=== PATIENT | female | born 1955 | race Caucasian/White ===

== ENCOUNTER → 2017-06-13 10:52 | Outpatient (REF) | payer BC, SELFPAY ==
[2017-06-13 14:20] LABS: Basophils # 0.1 K/mm3 (0-0.2); Basophils % 0.9 % (0.1-2.0); Eosinophils # 0.1 K/mm3 (0.0-0.4); Eosinophils % 1.3 % (0.1-12.0); Hematocrit 47.7 % (37.0-47.0); Hemoglobin 15.4 g/dL (12.2-16.2); Lymphocytes # 2.6 K/mm3 (0.7-4.5); Lymphocytes % 24.4 K/mm3 (10-50); Mean Corpuscular HGB Conc 32.3 g/dL (31.8-35.4); Mean Corpuscular Volume 92.9 fl (81-99); Mean Platelet Volume 9.7 fl (7.4-10.4); Monocytes # 0.6 K/mm3 (0.1-1.0); Monocytes % 5.8 % (1.7-9.3); Neutrophils # 7.1 K/mm3 (1.8-7.8); Neutrophils % 67.5 % (37.0-80.0); Platelet Count 476 K/mm3 (142-424); Red Blood Count 5.14 M/mm3 (4.20-5.40); Red Cell Distribution Width 12.4 % (11.5-17.5); White Blood Count 10.5 K/mm3 (4.8-10.8)
[2017-06-13 14:33] LABS: Alanine Aminotransferase 20 U/L (12-78); Albumin/Globulin Ratio 1.3 (1.1-1.8); Alkaline Phosphatase 110 U/L (46-116); Anion Gap 12.8 mEq/L (5-15); Aspartate Amino Transferase 12 U/L (15-37); Bilirubin,Total 0.2 mg/dL (0.2-1.0); Blood Urea Nitrogen 12 mg/dL (7-18); Calcium 9.4 mg/dL (8.5-10.1); Carbon Dioxide 30 mmol/L (21.0-32.0); Chloride 103 mmol/L (98-107); Chol/HDL Ratio 2.6 (1-3.5); Cholesterol 211 mg/dL (140-200); Creatinine,Serum 0.69 mg/dL (0.55-1.02); Estimated Glomerular Filt Rate 86 ml/min (>60); Free T4 (Free Thyroxine) 1.12 ng/dl (0.76-1.46); GFR (African American) 104 ML/MIN (>60); Globulin 3.2 gm/dl (1.3-3.2); Glucose 98 mg/dL (74-106); HDL Cholesterol 81 mg/dL (29-89); LDL Cholesterol 117 mg/dL (0-130); Potassium 4.8 mmoL/L (3.5-5.1); Sodium 141 mmol/L (136-145); Thyroid Stimulating Hormone 1.26 uIU/ml (0.358-3.740); Total Protein,Serum 7.2 gm/dL (6.4-8.2); Triglycerides 67 mg/dL (30-200); VLDL Cholesterol 13 mg/dL (0-40)
[2017-06-13 16:18] LABS: Hemoglobin A1C 5.4 % (0.0-7.0)
[2017-06-14 13:21] LABS: Vitamin D 25 Hydroxy 28.4 ng/mL (30.0-100.0)
== END ==
LOC: LAB 10:52
PROVIDERS: Visit Provider Nurse Practitioner Family
DX: R53.83 Other fatigue (principal); K57.92 Diverticulitis of intestine, part unspecified, without perforation or abscess without bleeding; M54.5 Low back pain; F41.9 Anxiety disorder, unspecified; Z79.899 Other long term (current) drug therapy
CPT/HCPCS: 80053; 80061; 82652; 83036; 84439; 84443; 85025

== ENCOUNTER → 2018-12-06 09:46 | Outpatient (CLI) | payer MEDICARE, SELFPAY ==
--- NOTE | 2018-12-06 10:59 | XR_ITS ---
PROCEDURE: XR CHEST 2V CLINICAL HISTORY: smoker Back pain, current smoker COMPARISON: CXR CHEST(2 VIEWS-NOT PORTABLE) from 07/09/2015 FINDINGS: Normal heart size. The aortic knob is slightly prominent. The lungs are clear without infiltrates, suspicious nodules, or pleural effusions. Mild hyperinflation. There is some scarring in the right lung apex. No acute bony findings. IMPRESSION: Minimal prominence of the aortic knob with COPD, no acute finding Dictated by: Sampson Larios MD 12/06/2018 12:59 Signed by: <Electronically signed by Sampson Larios MD in [place]> 12/06/2018 12:59
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
[2018-12-06 11:14] LABS: Basophils # 0.1 K/mm3 (0-0.2); Basophils % 0.9 % (0.1-2.0); Eosinophils # 0.1 K/mm3 (0.0-0.4); Eosinophils % 1.5 % (0.1-12.0); Hematocrit 46.5 % (37.0-47.0); Hemoglobin 14.9 g/dL (12.2-16.2); Lymphocytes # 3.2 K/mm3 (0.7-4.5); Lymphocytes % 32.5 % (10-50); Mean Corpuscular HGB Conc 32.1 g/dL (31.8-35.4); Mean Corpuscular Hemoglobin 30.4 pg (27.0-31.2); Mean Corpuscular Volume 94.6 fl (81-99); Mean Platelet Volume 7.7 fl (7.4-10.4); Monocytes # 0.7 K/mm3 (0.1-1.0); Monocytes % 6.7 % (1.7-9.3); Neutrophils # 5.7 K/mm3 (1.8-7.8); Neutrophils % 58.5 % (37.0-80.0); Platelet Count 516 K/mm3 (142-424); Red Blood Count 4.91 M/mm3 (4.20-5.40); Red Cell Distribution Width 12.9 % (11.5-17.5); White Blood Count 9.7 K/mm3 (4.8-10.8)
[2018-12-06 12:40] LABS: Alanine Aminotransferase 19 U/L (12-78); Albumin Level 4.1 gm/dL (3.4-5.0); Albumin/Globulin Ratio 1.4 (1.1-1.8); Alkaline Phosphatase 86 U/L (46-116); Anion Gap 9.4 mEq/L (5-15); Aspartate Amino Transferase 21 U/L (15-37); Bilirubin,Total 0.4 mg/dL (0.2-1.0); Blood Urea Nitrogen 11 mg/dL (7-18); Calcium 9.4 mg/dL (8.5-10.1); Carbon Dioxide 30 mmol/L (21.0-32.0); Chloride 103 mmol/L (98-107); Creatinine,Serum 0.69 mg/dL (0.55-1.02); Estimated Glomerular Filt Rate 85 ml/min (>60); Free T4 (Free Thyroxine) 1.04 ng/dl (0.76-1.46); GFR (African American) 103 ML/MIN (>60); Globulin 2.9 gm/dl (1.3-3.2); Glucose 97 mg/dL (74-106); Potassium 4.4 mmoL/L (3.5-5.1); Sodium 138 mmol/L (136-145); Thyroid Stimulating Hormone 1.01 uIU/ml (0.358-3.740)
[2018-12-06 13:00] LABS: C-Reactive Protein < 0.2 mg/dL (0.0-0.9)
[2018-12-06 15:14] LABS: Erythrocyte Sedimentation Rate 4 mm/hr (0-30)
[2018-12-07 09:51] LABS: Vitamin D 25 Hydroxy 32.8 ng/mL (30.0-100.0)
[2018-12-07 12:08] LABS: RA Latex Turbid. <10.0 IU/mL (0.0-13.9)
[2018-12-07 15:18] LABS: Anti-Centromere B Antibodies <0.2 AI (0.0-0.9); Anti-Jo-1 <0.2 AI (0.0-0.9); Anti-Smith Antibody <0.2 AI (0.0-0.9); Antichromatin Antibodies <0.2 AI (0.0-0.9); Antiscleroderma-70 Antibodies <0.2 AI (0.0-0.9); RNP Antibodies <0.2 AI (0.0-0.9); Sjogren's Anti-SS-A <0.2 AI (0.0-0.9); Sjogren's Anti-SS-B <0.2 AI (0.0-0.9)
[2018-12-08 00:09] LABS: PTT-LA 37.6 sec (0.0-51.9); dRVVT 36.3 sec (0.0-47.0)
[2018-12-08 12:49] LABS: Anti-DNA (DS) Ab Qn 1 IU/mL (0-9)
[2018-12-08 12:52] LABS: Lupus Reflex Interpretation Comment: (.)
[2018-12-10 15:15] LABS: Anti-Cyclic Citrullinated Pept 5 units (0-19)
== END ==
PROVIDERS: PCP Nurse Practitioner Family; Visit Provider Nurse Practitioner Family
DX: R53.83 Other fatigue (principal); M25.50 Pain in unspecified joint; F17.200 Nicotine dependence, unspecified, uncomplicated; Z00.00 Encounter for general adult medical examination without abnormal findings
CPT/HCPCS: 36415; 71046; 72084; 80053; 82652; 84439; 84443; 85025; 85613; 85651; 86140; 86200; 86225; 86235; 86431

== ENCOUNTER → 2019-01-17 09:33 | Outpatient (CLI) | payer MEDICARE, SELFPAY ==
--- NOTE | 2019-01-17 09:34 | MM_ITS ---
PROCEDURE: MM DIG SCREENING MAMM BI W/CAD Patient Age:63Y CLINICAL INDICATION: Screening routine screening mammogram. No hormones: Previous left breast benign stereotactic biopsy. Family history: Aunt with breast cancer. 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 R2 CAD reviewed. FINDINGS: Moderate density breast with residual fibroglandular elements most evident towards upper-outer quadrant both breast. No suspicious calcification. No dominant, nor discrete suspicious mass identified Right breast no new areas of significant concern. Mild asymmetry appears similar to multiple previous studies but mild ductal prominence retroareolar region appears stable on CC view and I believe a the generous duct viewed on endaccounts for the appearance retroareolar region on on the MLO view Left breast no new areas of concern follow-up 1 year The ovoid density inferior breast 6:30 position again noted but this measures up to 9 mm maximally and is been present since studies dating back to 2007 in 2016. No interval change but no progression. A year old of he IMPRESSION: Stable bilateral mammogram no new areas of significant concern, Bilateral follow-up 1 year recommended BI-RAD Category: 2 Benign Finding(s) FOLLOW-UP: 1YR 1 Year Follow-up (A letter has been sent to the patient regarding results of the study.) Dictated by: Esau Coe MD 01/21/2019 20:53 Electronically signed by Esau Coe MD in [place] 01/21/2019 20:53
== END ==
PROVIDERS: PCP Nurse Practitioner Family; Visit Provider Nurse Practitioner Family
DX: Z12.31 Encounter for screening mammogram for malignant neoplasm of breast (principal)
CPT/HCPCS: 77067

== ENCOUNTER 2021-04-01 11:05 | Emergency (ER) | payer MEDICARE, SELFPAY ==
[2021-04-01 12:27] VITALS: BP 141/86; PULSE 98; RESP 20; TEMP 36.9; O2SAT 96; BMI 18.8
--- NOTE | 2021-04-01 12:35 | HMH.EDUTC ---
[facility] [place] Disposition Clinical Impression: Sinusitis Qualifiers: Sinusitis location: unspecified location Chronicity: unspecified Qualified Code(s): J32.9 - Chronic sinusitis, unspecified Disposition: Home, Self-Care Condition on Discharge: Good Instructions: Sinusitis, DI for Sinusitis Additional Instructions: *Monitor Temp, Over the counter Motrin or Tylenol as directed/as needed Tylenol every 4 hours and Motrin every 6 hours (as long as your family doctor has told you that you can take it) for fever or pain. and straight to ER if unable to lower temp less than 101.0 after medication given *Warm salt water gargles may help to soothe the throat *Throat Lozenges *Warm fluids like tea with honey may help to soothe the throat *Sleep elevated *Humidifier/Vaporizer Take antibiotics as prescribed Follow up with your Family Doctor if needed or no improvement Follow up IMMEDIATELY for new or worsening symptoms or no Noticeable improvement over the next 48-72 hours. 911 for difficulty breathing or swallowing Prescriptions: Amoxicillin/Potassium Clav [Augmentin 875-125 Tablet] 1 tab PO Q12H 7 Days #14 tab Transmission Status: Pending to [facility] predniSONE [Deltasone 10mg tablet] 10 mg PO BID 5 Days #10 tab Transmission Status: Pending to [facility] Fluticasone Propionate [Flonase 50mcg nasal spray 16gm] 1 spr NS DAILY #1 each Transmission Status: Pending to [facility] Referrals: Ortega Roach MD [Primary Care Provider] - As needed Time of Disposition: 12:39 Medical Decision Making - Gilbert Inquiry Pt receiving controlled substance: No Gilbert was queried for this patient: No Vital Signs: 04/01/21 12:27 Temperature 98.4 F Temperature Source Oral Pulse Rate [Right Radial] 98 H Respiratory Rate 20 Blood Pressure [Right Arm] 141/86 H Blood Pressure Mean [Right Arm] 104 Blood Pressure Source [Right Arm] Automatic Cuff Blood Pressure Position [Right Arm] Sitting 02 Sat by Pulse Oximetry 96 Oxygen Delivery Method Room Air [facility] [place] HPI - General Stated complaint: sore throat, cough, congestion Time Seen by Provider: 04/01/21 12:35 Mode of Arrival: Ambulatory Source of Information: Patient Limitations: No Limitations Description of Symptoms (Recalled from Triage Doc. by RN): Pt stated that she has sore throat, sinus pressure, and chest congestion. HEENT Symptoms (Recalled from RN notes): Yes Resp Symptoms (Recalled from RN notes): No Skin Symptoms (Recalled from RN notes): No MS Symptoms (Recalled from RN notes): No Functional Status (Recalled from RN notes): n/a - History of Present Illness Provider Complaint: Patient states that she thinks she may have a sinus infection States that she has been having sinus pain and pressure, sore throat and feels like it is moving into her chest so she wanted to get checked before it got too bad - Related Data Previous Rx's Medication Instructions Recorded sulfamethoxazole 400 1 tab PO BID 10 Days #20 tab 10/26/20 mg-trimethoprim 80 mg tablet Amoxicillin/Potassium Clav 1 tab PO Q12H 7 Days #14 tab 04/01/21 [Augmentin 875-125 Tablet] Fluticasone Propionate [Flonase 1 spr NS DAILY #1 each 04/01/21 50mcg nasal spray 16gm] predniSONE [Deltasone 10mg tablet] 10 mg PO BID 5 Days #10 tab 04/01/21 Allergies Allergy/AdvReac Type Severity Reaction Status Date / Time No Known Allergies Allergy Verified 04/01/21 12:33 - Worker's Comp Is this a Worker's Comp case?: No Is this an H Worker's Comp?: No Is this a [place] Worker's Comp?: No H History - Hepatitis A Screen Drug use history?: No High risk sexual behaviors?: No History of sexually transmitted infection?: No Currently employed?: No Childcare worker?: No Do you have indoor plumbing?: Yes Do you have electricity?: Yes Attestation statement:: This patient has been screened for Hepatitis A risk factors. I have reviewed the patient's past medical history: Yes
[2021-04-01 12:45] VITALS: BP 141/86; PULSE 98; RESP 20; TEMP 36.9; O2SAT 96
== END 2021-04-01 12:45 | disposition home or self-care (01) ==
PROVIDERS: Emergency Provider Nurse Practitioner; PCP Emergency Medicine
DX: J32.9 Chronic sinusitis, unspecified (principal); J44.9 Chronic obstructive pulmonary disease, unspecified; G43.709 Chronic migraine without aura, not intractable, without status migrainosus
CPT/HCPCS: G0463; 99202

== ENCOUNTER 2022-05-24 17:21 | Emergency (ER) | payer MEDICARE, SELFPAY ==
[2022-05-24 17:24] VITALS: BP 179/100; PULSE 117; RESP 19; TEMP 36.7; O2SAT 100; BMI 20.2
--- NOTE | 2022-05-24 17:36 | CT_ITS ---
PROCEDURE INFORMATION: Exam: CT Cervical Spine Without Contrast Exam date and time: 05/24/2022 5:47 PM Age: 66 years old Clinical indication: Injury or trauma; Fall; Blunt trauma TECHNIQUE: Imaging protocol: Computed tomography of the cervical spine without contrast. Radiation optimization: All CT scans at this facility use at least one of these dose optimization techniques: automated exposure control; mA and/or kV adjustment per patient size (includes targeted exams where dose is matched to clinical indication); or iterative reconstruction. Other protocol: This patient has received 3 known CTs and 0 known cardiac nuclear medicine studies in the 12 months prior to the current study. COMPARISON: CR XR MULTIPLE SPINE 6+V 12/06/2018 11:11 AM FINDINGS: Bones/joints: No acute fracture. 3 mm of anterolisthesis of C4 upon C5 and 3 mm of anterolisthesis of C3 upon C4. Moderate disc space narrowing and endplate osteophytes at C4-C5, C5-C6 and C6-C7. No significant disc bulge or herniation. No severe spinal canal stenosis. No significant neural foraminal narrowing. Multilevel facet arthrosis. Mild bilateral bony foraminal stenosis at C3-C4, C4-C5, C5-C6 and C6-C7. Lungs: Biapical emphysematous changes. Biapical chronic pleural thickening. Vasculature: Aneurysmal dilatation of the aortic arch measuring up to 4 cm. Underlying atherosclerotic changes. Soft tissues: Unremarkable. IMPRESSION: 1. No acute findings within the cervical spine. 2. Aortic aneurysm partially included on this exam. 3. Biapical emphysematous changes and chronic biapical pleural thickening.
--- NOTE | 2022-05-24 17:36 | CT_ITS ---
PROCEDURE INFORMATION: Exam: CT Thoracic Spine Without Contrast Exam date and time: 05/24/2022 5:50 PM Age: 66 years old Clinical indication: Injury or trauma; Fall; Blunt trauma (contusions or hematomas) TECHNIQUE: Imaging protocol: Computed tomography of the thoracic spine without contrast. Radiation optimization: All CT scans at this facility use at least one of these dose optimization techniques: automated exposure control; mA and/or kV adjustment per patient size (includes targeted exams where dose is matched to clinical indication); or iterative reconstruction. Other protocol: This patient has received 3 known CTs and 0 known cardiac nuclear medicine studies in the 12 months prior to the current study. COMPARISON: CR XR MULTIPLE SPINE 6+V 12/06/2018 11:11 AM FINDINGS: Bones/joints: The bones are diffusely demineralized. The T4 to T7 vertebrae have subtle central loss of height approximally 10% which is age indeterminate , potentially chronic. The alignment is near anatomic. No acute displaced fracture seen. Mild multilevel degenerative changes. Soft tissues: Unremarkable. Lungs: Moderate emphysema with biapical scarring. There is a spiculated mass present in the superior segment of the right lower lobe measuring 2.6 x 2.1 cm. IMPRESSION: 1. Mild T4-T7 central loss of height approximally 10% age indeterminate, potentially chronic. Correlate with point tenderness. This does not have associated retropulsion. No acute displaced fracture is seen. 2. Spiculated mass in the right lower lobe superior segment measuring 2.6 cm maximum size highly suspicious for a primary lung carcinoma. Recommend follow-up by PET-CT and or biopsy.
--- NOTE | 2022-05-24 17:36 | CT_ITS ---
PROCEDURE INFORMATION: Exam: CT Lumbar Spine Without Contrast Exam date and time: 05/24/2022 5:53 PM Age: 66 years old Clinical indication: Injury or trauma; Fall; Blunt trauma (contusions or hematomas) TECHNIQUE: Imaging protocol: Computed tomography of the lumbar spine without contrast. Radiation optimization: All CT scans at this facility use at least one of these dose optimization techniques: automated exposure control; mA and/or kV adjustment per patient size (includes targeted exams where dose is matched to clinical indication); or iterative reconstruction. Other protocol: This patient has received 3 known CTs and 0 known cardiac nuclear medicine studies in the 12 months prior to the current study. COMPARISON: CR XR MULTIPLE SPINE 6+V 12/06/2018 11:11 AM FINDINGS: Bones/joints: Moderate left convex scoliosis. Moderate multilevel degenerative disc disease. Minimal anterolisthesis L5 on S1 measuring 4 mm with otherwise near anatomic sagittal alignment. No acute displaced fracture. Moderate L2-L3 mild L3-L4 and severe L4-L5 spinal canal narrowing due to degenerative disc disease and facet arthritis. Soft tissues: Unremarkable. IMPRESSION: Degenerative changes with moderate left convex scoliosis. No acute osseous injury.
--- NOTE | 2022-05-24 17:36 | CT_ITS ---
PROCEDURE INFORMATION: Exam: CT Head Without Contrast Exam date and time: 05/24/2022 5:47 PM Age: 66 years old Clinical indication: Injury or trauma; Fall; Blunt trauma (contusions or hematomas) TECHNIQUE: Imaging protocol: Computed tomography of the head without contrast. Radiation optimization: All CT scans at this facility use at least one of these dose optimization techniques: automated exposure control; mA and/or kV adjustment per patient size (includes targeted exams where dose is matched to clinical indication); or iterative reconstruction. Other protocol: This patient has received 3 known CTs and 0 known cardiac nuclear medicine studies in the 12 months prior to the current study. COMPARISON: No relevant prior studies available. FINDINGS: Brain: Normal. No hemorrhage. Unremarkable white matter. No mass effect. Cerebral ventricles: No ventriculomegaly. Paranasal sinuses: Visualized sinuses are unremarkable. No fluid levels. Mastoid air cells: Visualized mastoid air cells are well aerated. Bones/joints: Chronic ethmoid, maxillary and sphenoid sinus disease. Soft tissues: Unremarkable. IMPRESSION: 1. No acute intracranial abnormality. 2. Chronic sinus disease.
--- NOTE | 2022-05-24 18:20 | CT_ITS ---
PROCEDURE INFORMATION: Exam: CT Chest Without Contrast; Diagnostic Exam date and time: 05/24/2022 6:31 PM Age: 66 years old Clinical indication: Abnormal findings; Lung mass or nodule; Not specified; Additional info: Lung mass. HX of smoker x 40 plus years. HX of pre cancerous cells in cervics. TECHNIQUE: Imaging protocol: Diagnostic computed tomography of the chest without contrast. Radiation optimization: All CT scans at this facility use at least one of these dose optimization techniques: automated exposure control; mA and/or kV adjustment per patient size (includes targeted exams where dose is matched to clinical indication); or iterative reconstruction. Other protocol: This patient has received 4 known CTs and 0 known cardiac nuclear medicine studies in the 12 months prior to the current study. COMPARISON: CR XR CHEST 2V 12/06/2018 11:11 AM FINDINGS: Lungs: Bilateral emphysematous changes. Mildly spiculated mass in the superior aspect of the right lower lobe measuring 2.0 x 2.0 x 2.6 cm. This is located immediately adjacent to the major fissure. Pleural spaces: Mild biapical pleural scarring. Heart: Unremarkable. No cardiomegaly. No pericardial effusion. Lymph nodes: Unremarkable. No enlarged lymph nodes. Vasculature: Mild aneurysmal dilatation of the thoracic aorta measuring 4.0 cm at the aortic root and 4.2 cm at the aortic arch. The descending thoracic aorta is not aneurysmal. Bones/joints: Unremarkable. No acute fracture. Soft tissues: Unremarkable. IMPRESSION: 1. Right lower lobe spiculated mass consistent with primary neoplasm. 2. Emphysematous changes. 3. Thoracic aortic aneurysmal dilatation. COMMENTS: In the absence of a history or active diagnosis of lung cancer, it is recommended that this patient with emphysema be evaluated for enrollment in a low dose CT lung cancer screening program.
--- NOTE | 2022-05-24 18:23 | PC.NURSE ---
Dr Arango spoke with vrad ordering a chest ct due to findings of thoracic spine ct.
--- NOTE | 2022-05-24 18:54 | HMH.EDGENADL ---
Discharge Plan Disposition Patient Disposition: Home, Self-Care Condition: Good Referrals Follow up/Referrals: Ortega Roach MD [Primary Care Provider] - See instructions Kayley Redman MD [Physician] - See instructions Activity Restrictions/Add. Instructions Additional Instructions/Restrictions: There is a right lung mass discovered on your CAT scans. Please follow-up with Dr. Redman lung doctor, as soon as possible for further evaluation of this. Call for appointment. Additional instructions for SCALP LACERATION: Clean the wound daily with soap and water. You may shower and shampoo your hair. Avoid submerging the wound. No swimming.. Apply a thin film of antibiotic ointment such as neosporin, polysporin, or triple antibiotic daily after showering. Be careful when combing or brushing hair so that you so not snag the smith with a comb or brush. See your primary care physician or return to the [facility] in 7 days for staple removal. The [facility] is open 8 AM to 8 PM, 7 days a week. Return if any signs of infection including increasing pain, pus drainage, swelling, redness, red streaks, or fever. Additional instructions for HEAD INJURY: See your physician as soon as possible for further evaluation. Return immediately if severe headache, vomiting, problems with vision or speech, numbness or weakness of the extremities, or severe neck pain. Clinical Impressions Clinical Impression: Laceration of scalp, Lung mass Instructions Patient Instructions: How to Prevent Falls, DI for Laceration Repair -- Smith, DI for Closed Head Injury Discharge ED Provider: Paul Arango General Adult HPI General Chief complaint: Fall Stated complaint: AO 05/24@1700@home fell Hit head lac Time Seen by Provider: 05/24/22 18:52 Mode of Arrival: Ambulatory Source of Information: Patient Limitations: No Limitations Description of Symptoms (Recalled from ER Triage Doc. by RN): 66 F presents after losing her balance on a ladder and falling backwards approximately 3-5 feet. She struck the back of her head on a rock fireplace, and now complains of new pain to her head and sacral spine. She has chronic pain to her neck and back typically, so she is unsure if she's having new pain there. Patient denies LOC. NAD on arrival. History of Present Illness HPI narrative: Patient states that she was up on a ladder painting and feels like she got in a hurry, lost her balance, and fell backwards striking the back of her head on a rock fireplace. She sustained an occipital scalp laceration. She has chronic back and neck pain but her only new increased pain in her back is in the lower lumbar area. No numbness or weakness. No loss of consciousness. No vomiting. Last tetanus immunization is unknown. Related Data Allergies Allergy/AdvReac Type Severity Reaction Status Date / Time No Known Allergies Allergy Verified 04/01/21 12:33 [facility] Disclaimer: The information contained in this section may have been updated after the patient was seen, as this information can be updated by other users. Social History Smoking Status: Current every day smoker alcohol intake: never substance use type: denies use current occupational status: employed Travel in the last 8 weeks: None household members: spouse and children housing: house current occupational exposures/hazards: No ROS Obtained: Yes Systems reviewed as appropriate & no additional complaints except as documented Constitutional Constitutional: Reports headache(s) and Denies weakness ENT Ears, Nose, Mouth, and Throat: Reports headache(s) Cardiovascular Cardiovascular: Denies chest pain Respiratory Respiratory: Denies shortness of breath, Denies cough and Denies hemoptysis Gastrointestinal Gastrointestingal: Denies abdominal pain, nausea or vomiting Musculoskeletal Musculoskeletal: Denies numbness Neurologic Neurologic: Reports heada
[2022-05-24 19:21] VITALS: BP 155/79; PULSE 89; RESP 19; TEMP 36.7; O2SAT 98
== END 2022-05-24 20:11 | disposition home or self-care (01) ==
PROVIDERS: Emergency Provider Emergency Medicine; PCP Emergency Medicine
DX: S01.01XA Laceration without foreign body of scalp, initial encounter (principal); R91.8 Other nonspecific abnormal finding of lung field; W11.XXXA Fall on and from ladder, initial encounter; F17.210 Nicotine dependence, cigarettes, uncomplicated; Z23 Encounter for immunization
CPT/HCPCS: 12002; 70450; 71250; 72125; 72128; 72131; 90471; 90715; 99285

== ENCOUNTER → 2022-07-08 07:53 | Outpatient (CLI) | payer MEDICARE, SELFPAY | PROVIDERS: PCP Emergency Medicine; Visit Provider Internal Medicine Pulmonary Disease | DX: R06.09 Other forms of dyspnea (principal) | CPT/HCPCS: 94060; 94618; 94726; 94729 ==

== ENCOUNTER → 2022-12-28 12:00 | Outpatient (CLI) | payer MEDICARE, SELFPAY | PROVIDERS: PCP Emergency Medicine; Visit Provider Emergency Medicine | DX: E55.9 Vitamin D deficiency, unspecified (principal) ==

== ENCOUNTER → 2022-12-28 12:00 | Outpatient (CLI) | payer MEDICARE, SELFPAY ==
[2022-12-28 18:47] LABS: Basophils # 0.1 K/mm3 (0-0.2); Eosinophils # 0.3 K/mm3 (0.0-0.4); Eosinophils % 2.3 % (0.1-12.0); Hematocrit 46.5 % (37.0-47.0); Hemoglobin 14.6 g/dL (12.2-16.2); Lymphocytes # 3.2 K/mm3 (0.7-4.5); Lymphocytes % 29.9 % (10-50); Mean Corpuscular HGB Conc 31.5 g/dL (31.8-35.4); Mean Corpuscular Hemoglobin 28.8 pg (27.0-31.2); Mean Corpuscular Volume 91.3 fl (81-99); Mean Platelet Volume 9.3 fl (7.4-10.4); Monocytes # 0.8 K/mm3 (0.1-1.0); Monocytes % 7.4 % (1.7-9.3); Neutrophils # 6.3 K/mm3 (1.8-7.8); Neutrophils % 59.4 % (37.0-80.0); Platelet Count 574 K/mm3 (142-424); Red Blood Count 5.09 M/mm3 (4.20-5.40); Red Cell Distribution Width 13.8 % (11.5-17.5); White Blood Count 10.6 K/mm3 (4.8-10.8)
[2022-12-28 19:33] LABS: Alanine Aminotransferase 16 U/L (12-78); Albumin Level 4.7 g/dl (3.5-5.0); Albumin/Globulin Ratio 1.8 (1.1-1.8); Alkaline Phosphatase 98 U/L (38-126); Anion Gap 13.3 mEq/L (5-15); Aspartate Amino Transferase 29 U/L (14-36); Bilirubin,Total 0.3 mg/dl (0.2-1.3); Blood Urea Nitrogen 7 mg/dl (7-17); Calcium 9.7 mg/dl (8.4-10.2); Carbon Dioxide 28 mmol/L (22.0-30.0); Chloride 102 mmol/L (98-107); Chol/HDL Ratio 2.4 (1-3.5); Cholesterol 247 mg/dl (140-200); Estimated Glomerular Filt Rate 99 ml/min (>60); GFR (African American) 120 ML/MIN (>60); Globulin 2.6 g/dL (1.3-3.2); Glucose 87 mg/dl (74-100); HDL Cholesterol 105 mg/dl (40-60); Potassium 4.3 mmoL/L (3.5-5.1); Sodium 139 mmol/L (136-145); Total Protein,Serum 7.3 g/dl (6.3-8.2); Triglycerides 103 mg/dl (30-150); VLDL Cholesterol 21 mg/dL (0-40)
[2022-12-28 19:53] LABS: Amphetamine/Metha Screen,Urine Negative ng/ml (<1000); Barbiturates Screen,Urine Negative ng/ml (<200)
[2022-12-28 19:54] LABS: Benzodiazepines Screen,Urine Negative ng/ml (<200); Cannabinoid Screen,Urine Negative ng/ml (<50); T4 (Thyroxine) 9.2 ug/dl (5.53-11.0)
[2022-12-28 19:56] LABS: 25-OH Vitamin D, Total 34.2 ng/mL (30-100)
[2022-12-28 20:04] LABS: Cocaine Screen,Urine Negative ng/ml (<300)
[2022-12-28 20:05] LABS: Methadone Screen,Urine Negative ng/ml (<300); Opiate Screen,Urine Positive ng/ml (<300)
[2022-12-28 20:06] LABS: Phencyclidine Screen,Urine Negative ng/ml (<25)
[2022-12-28 20:08] LABS: Thyroid Stimulating Hormone 0.96 uIU/mL (0.465-4.68)
[2022-12-28 22:10] LABS: Iron 131 ug/dL (37-170)
[2022-12-28 22:22] LABS: Direct LDL Cholesterol 105.63 mg/dL (100-129)
[2022-12-28 22:26] LABS: Total Iron Binding Capacity 308 ug/dL (265-497)
== END ==
PROVIDERS: PCP Emergency Medicine; Visit Provider Emergency Medicine
DX: E78.5 Hyperlipidemia, unspecified (principal); Z79.899 Other long term (current) drug therapy; E55.9 Vitamin D deficiency, unspecified; J44.9 Chronic obstructive pulmonary disease, unspecified; D38.1 Neoplasm of uncertain behavior of trachea, bronchus and lung
CPT/HCPCS: 80053; 80061; 80305; 82306; 83540; 83550; 84436; 84443; 85025

== ENCOUNTER 2023-01-05 11:40 | Day surgery (SDC) | payer MEDICARE, SELFPAY ==
[2022-11-24 15:22] VITALS: BMI 21.1
[2023-01-05 12:21] VITALS: BP 156/101; PULSE 92; RESP 18; TEMP 36.7; O2SAT 97
--- NOTE | 2023-01-05 13:41 | P.PNANES_ITS ---
[facility] Disclaimer: The information contained in this section may have been updated after the patient was seen, as this information can be updated by other users. Medical History Abnormal computerized axial tomography of chest COPD (chronic obstructive pulmonary disease) COPD mixed type Degenerative cervical disc Dyspnea on exertion Lung nodule Pulmonary emphysema Smoking greater than 30 pack years Surgical History History of appendectomy History of cholecystectomy History of hysterectomy History of lung surgery remover lower lobe right lung Family History Other COPD (chronic obstructive pulmonary disease) Family history of cancer Family history of myocardial infarction Hypertension Social History Smoking Status: Former smoker pack-years: 40 smoking status stop date: 05/2022 alcohol intake: never substance use type: denies use current occupational status: employed and retired Travel in the last 8 weeks: None household members: spouse housing: house lives independently: No marital status: education level: high school service: No intermediate: No current occupational exposures/hazards: No caffeine: Yes special skip needs: No agree to transfusion: No do you feel safe at home: Yes victim of physical abuse: No victim of emotional abuse: No victim of sexual abuse: No would you like helpful sources: No [facility] Anesthesia Checklist Patient Identification Patient Identification: Arm Band and Family Structural Data Admitted From: Home Planned Operative Procedure/s: EGD and Colonoscopyl Consent for Planned Operative Procedure(s) Verified: Yes Verified Documents: Surgical Consent and History and Physical Additional verifications Patient : No Anesthesia Reactions: No Hx Blood Transfusions: No Blood Transfusion Reaction: No Previous Colonoscopy: Yes Airway Assessment Mallampati Score:: Class II C-Spine Mobility Assessed: Yes TMJ Mobility Assessed: Yes Dentition: Edentulous Neurological Assessment Level of Consciousness: Awake, Alert, Appropriate and Follows Commands Hx Seizures: No Numbness or tingling in extremities: No Anesthesia Plan Anesthesia Risk discussed: Yes ASA Class: III Anesthesia Type: MAC Preoperative Comments Pre-Operative Comments: History of Pyloric. Right lower lung removal. Hypertension.
[2023-01-05 13:43] VITALS: O2SAT 97
--- NOTE | 2023-01-05 14:05 | HMH.SCOPE ---
Procedure: Date: 01/05/23 Patient Date of :: 1955 Procedure Performed:: Diagnostic EGD and screening colonoscopy Indications:: GERD and History of polyps Performing Provider:: Tonny Mendez MD Referring Provider:: Ortega Roach MD Sedation:: Propofol Procedure:: The gastroscope was gently passed through the incisoral orifice into the oral cavity and under direct visualization the esophagus was intubated. The endoscope was passed down the esophagus, through the stomach, and into the duodenum. Color, texture, mucosa, and anatomy of the esophagus, stomach, and duodenum were carefully examined with the scope. Findings:: Oropharynx: normal Esophagus: normal EG Junction: intact at 40 cm Cardia: normal Fundus: normal Body: normal Antrum: normal Duodenal bulb: normal Duodenum (second and third portion): normal Impression: Overall normal EGD, no evidence of active reflux or ulcer disease Recommendations:: Symptomatic therapy as indicated Complications:: None Estimated blood obtained (mL): 0 Colonoscopy Component Colonoscopy Component Was a colonoscopy performed during today's procedure?: No
[2023-01-05 14:07] VITALS: BP 97/40; PULSE 107; RESP 20; TEMP 36.8; O2SAT 97
--- NOTE | 2023-01-05 14:08 | HMH.SCOPE ---
Procedure: Date: 01/05/23 Patient Date of :: 1955 Procedure Performed:: Screening colonoscopy Indications:: History of polyps Performing Provider:: Tonny Mendez MD Referring Provider:: Ortega Roach MD Sedation:: Propofol Procedure:: After placing the patient in the left lateral decubitus position, the colonoscopy was gently inserted into the rectum and under direct visualization advanced to the cecum which was identified by transillumination in the right lower quadrant, identification of the ileocecal valve, appendiceal orifice, and cecal strap. Color, texture, mucosa, and anatomy of the colon were carefully examined with the scope. Findings:: Anal canal: normal Rectum: normal Sigmoid colon: normal without polyps or inflammatory changes, scattered diverticulosis Descending colon: normal without polyps or inflammatory changes Splenic flexure: normal Transverse colon: normal without polyps or inflammatory changes Hepatic flexure: normal Ascending colon: normal without polyps or inflammatory changes Cecum: normal Terminal ileum: not visualized Impression: Sigmoid diverticulosis, otherwise normal colonoscopy exam Recommendations:: Follow up examination in about FIVE years or so, sooner if clinically indicated in view of history of polyps. Complications:: None Estimated blood obtained (mL): 0 Colonoscopy Component Colonoscopy Component Was a colonoscopy performed during today's procedure?: Yes Recommended follow up colonoscopy of at least 10 years?: No If no, follow up colonoscopy recommended in ___ years?: Five Reason for not recommending >/= 10 yr follow-up interval?: As noted above
[2023-01-05 14:17] VITALS: BP 123/62; PULSE 87; RESP 18; O2SAT 97
[2023-01-05 14:27] VITALS: BP 138/69; PULSE 72; RESP 18; O2SAT 100
== END 2023-01-05 15:00 | disposition home or self-care (01) ==
PROVIDERS: PCP Emergency Medicine; Visit Provider Internal Medicine Gastroenterology
PROC: 0DJ08ZZ Inspection of Upper Intestinal Tract, Via Natural or Artificial Opening Endoscopic (ICD-10-PCS; CPT 43235; principal; 2023-01-05 13:00)
DX: Z12.11 Encounter for screening for malignant neoplasm of colon (principal); K21.9 Gastro-esophageal reflux disease without esophagitis; Z86.010 Personal history of colon polyps; K57.30 Diverticulosis of large intestine without perforation or abscess without bleeding
CPT/HCPCS: 43235; G0105

== ENCOUNTER → 2023-01-26 12:41 | Outpatient (CLI) | payer MEDICARE, SELFPAY ==
[2023-01-26 13:10] VITALS: PULSE 84; PULSE 90
== END ==
LOC: RT 12:43
PROVIDERS: PCP Emergency Medicine; Visit Provider Internal Medicine Pulmonary Disease
DX: R06.09 Other forms of dyspnea (principal)
CPT/HCPCS: 94060; 94640

== ENCOUNTER → 2023-03-15 07:09 | Outpatient (CLI) | payer MEDICARE, SELFPAY ==
[2023-03-15 18:30] LABS: Coronavirus 19, PCR Not Detected (NotDetected)
[2023-03-15 20:22] LABS: Influenza A, PCR Not Detected (NotDetected); Influenza B, PCR Not Detected (NotDetected)
== END ==
PROVIDERS: PCP Family Medicine; Visit Provider Family Medicine
DX: J02.9 Acute pharyngitis, unspecified (principal); R09.81 Nasal congestion; R05.9 Cough, unspecified; Z20.828 Contact with and (suspected) exposure to other viral communicable diseases
CPT/HCPCS: 87636

== ENCOUNTER 2023-04-28 11:39 | Outpatient (CLI) | payer MEDICARE, SELFPAY ==
[2023-04-28 11:52] LABS: Chol/HDL Ratio 3.3 (1-3.5); Cholesterol 208 mg/dl (140-200); HDL Cholesterol 63 mg/dl (40-60); Triglycerides 104 mg/dl (30-150); VLDL Cholesterol 21 mg/dL (0-40)
[2023-04-28 12:02] LABS: Direct LDL Cholesterol 112.11 mg/dL (100-129)
[2023-04-28 12:36] LABS: Benzodiazepines Screen,Urine Negative ng/ml (<200)
[2023-04-28 12:37] LABS: Amphetamine/Metha Screen,Urine Negative ng/ml (<1000); Barbiturates Screen,Urine Negative ng/ml (<200)
[2023-04-28 12:38] LABS: Cannabinoid Screen,Urine Negative ng/ml (<50); Cocaine Screen,Urine Negative ng/ml (<300)
[2023-04-28 12:39] LABS: Methadone Screen,Urine Negative ng/ml (<300)
[2023-04-28 12:40] LABS: Opiate Screen,Urine Positive ng/ml (<300); Phencyclidine Screen,Urine Negative ng/ml (<25)
== END 2023-04-28 23:59 ==
LOC: LAB.DROPOF 11:39
PROVIDERS: PCP Internal Medicine; Visit Provider Internal Medicine
DX: Z79.899 Other long term (current) drug therapy (principal); E78.5 Hyperlipidemia, unspecified
CPT/HCPCS: 80061; 80307

== ENCOUNTER → 2023-05-10 08:55 | Outpatient (POV) | payer MEDICARE, SELFPAY ==
[2023-05-10 09:10] VITALS: BP 175/101; PULSE 114; RESP 18; O2SAT 92; BMI 21.1
--- NOTE | 2023-05-10 09:14 | A.OFFVIS_ITS ---
HPI Data of Consult Patient: new to practice Consult date: 05/10/23 Requesting Physician: Anna Sewell APRN Primary Care Provider: Stephen Loyd DO Consult Narrative Reason for consult: Neck pain, mid back pain, low back pain, abdominal pain History of present illness: Ms. Garcia is a 67 year old female who presents today as a new patient. She is a referral from Stephen Loyd's office. Today she rates her pain a 5 out of 10. Patient states her pain is all within her neck, mid back and low back as well as her abdomen. Patient states that she did have back issues starting about 4 years ago unrelated to any specific trauma or injury. She states that last year she fell off a ladder in May causing more severe pain in her mid to low back and when she went for evaluation they did end up finding a lung cancer. Patient did undergo surgery with 33 treatments of radiation after. Patient states she continues to have chronic pain that is constant and describes it as an aching, throbbing sensation with some sharp shooting pains however denies any radiating symptoms into her extremities. Patient does state that where she had her surgery is a constant dull ache. Patient does state the pain interferes with her ability perform activities of daily living such as cooking and cleaning. Patient has tried Tylenol and ibuprofen along with gabapentin, Tylenol 3 and tramadol with minimal relief. Patient states she did have a history of H. pylori and was told by her mask former not to do any NSAIDs any longer. Patient is also tried heat and ice and topicals with minimal relief. Patient has had physical therapy with no change. Patient is interested in any help we may be able to provide. She is currently managed with [place] 10 mg 3 times a day from her primary care provider. She states this does help with her day-to-day pain. Her Gilbert has been reviewed and is appropriate. CC: Anna Sewell APRN [facility] Disclaimer: The information contained in this section may have been updated after the patient was seen, as this information can be updated by other users. Medical History Abnormal computerized axial tomography of chest COPD (chronic obstructive pulmonary disease) COPD mixed type Degenerative cervical disc Dyspnea on exertion Lung nodule Pulmonary emphysema Smoking greater than 30 pack years Surgical History History of appendectomy History of cholecystectomy History of hysterectomy History of lung surgery remover lower lobe right lung Family History Other COPD (chronic obstructive pulmonary disease) Family history of cancer Family history of myocardial infarction Hypertension Social History (Updated 05/10/23 @ 09:36 by Irina Hughes RN) Smoking Status: Former smoker smoking status stop date: 05/2022 alcohol intake: never substance use type: denies use current occupational status: retired Travel in the last 8 weeks: None household members: spouse housing: house lives independently: No marital status: education level: high school service: No skilled nursing: No current occupational exposures/hazards: No caffeine: Yes special skip needs: No agree to transfusion: No do you feel safe at home: Yes victim of physical abuse: No victim of emotional abuse: No victim of sexual abuse: No would you like helpful sources: No Review of Systems Review of Systems Review of systems:: pertinent systems reviewed and negative unless documented below Review of systems (narrative): Review of Systems: General: No recent weight changes, no fever, no sleep disturbances Respiratory: No cough, no shortness of air, no recurring pulmonary infections Cardiovascular/peripheral vascular: No chest pain, no palpitations, no edema, no shortness of breath Gastrointestinal: No new onset incontinence, normal bowel movements reported Genitourinary: No new onset incontinence Musculoskeletal: Neck pain, mid back pain, low back pain, abdominal pain Psychiatric: [Normal mood/affect] Neurological: [Denies weakness in extremities], [denies balance issues] Meds Home Medications and Allergies Home Medications Medication Instructions Recorded Confirmed Type albuterol sulfate 90 mcg/actuation 2 inh inhalation QID PRN shortness 12/28/22 05/10/23 History aerosol inhaler of breath or wheezing umeclidinium 62.5 mcg-vilanterol 1 inh inhalation DAILY 90 days 01/26/23 05/10/23 Rx 25 mcg/actuation powdr for #180 ea inhalation (Anoro Ellipta) hydrocodone 10 mg-acetaminophen 1 tab PO TID Pain 30 days #90 tabs 04/28/23 05/10/23 Rx 325 mg tablet lisinopril 10 mg tablet 10 mg PO DAILY #30 tabs 04/28/23 05/10/23 Rx New Prescriptions to Start Prescriptions: Allergies Allergy/AdvReac Type Severity Reaction Status Date / Time atorvastatin AdvReac Intermediate Muscle Pain Verified 04/28/23 08:47 Objective Narrative: Physical Exam: General: Alert and oriented x3, no acute distress, pleasant and cooperative Lungs: Respirations even and unlabored, symmetrical chest expansion Eyes: PERRL Musculoskeletal: Flexion and extension of lumbar [spine] somewhat guarded secondary to pain, [antalgic gait noted] Neurological: Speech clear, no gross sensory deficit Additional findings Additional findings: COMPARISON: CR XR MULTIPLE SPINE 6+V 12/06/2018 11:11 AM FINDINGS: Bones/joints: Moderate left convex scoliosis. Moderate multilevel degenerative disc disease. Minimal anterolisthesis L5 on S1 measuring 4 mm with otherwise near anatomic sagittal alignment. No acute displaced fracture. Moderate L2-L3 mild L3-L4 and severe L4-L5 spinal canal narrowing due to degenerative disc disease and facet arthritis. Soft tissues: Unremarkable. IMPRESSION: Degenerative changes with moderate left convex scoliosis. No acute osseous injury. ARISON: CR XR MULTIPLE SPINE 6+V 12/06/2018 11:11 AM FINDINGS: Bones/joints: The bones are diffusely demineralized. The T4 to T7 vertebrae have subtle central loss of height approximally 10% which is age indeterminate , potentially chronic. The alignment is near anatomic. No acute displaced fracture seen. Mild multilevel degenerative changes. Soft tissues: Unremarkable. Lungs: Moderate emphysema with biapical scarring. There is a spiculated mass present in the superior segment of the right lower lobe measuring 2.6 x 2.1 cm. IMPRESSION: 1. Mild T4-T7 central loss of height approximally 10% age indeterminate, potentially chronic. Correlate with point tenderness. This does not have associated retropulsion. No acute displaced fracture is seen. 2. Spiculated mass in the right lower lobe superior segment measuring 2.6 cm maximum size highly suspicious for a primary lung carcinoma. Recommend follow-up by PET-CT and or biopsy. Assessment and Plan *Assessment and plan (1) Degenerative disc disease, lumbar: Status: Acute Category: Medical Code(s): M51.36 - Other intervertebral disc degeneration, lumbar region (2) Degenerative disc disease, thoracic: Status: Acute Category: Medical Code(s): M51.34 - Other intervertebral disc degeneration, thoracic region (3) Neck pain: Status: Acute Category: Medical Code(s): M54.2 - Cervicalgia (4) Malignant neoplasm of lung: Status: Acute Qualifiers: Laterality: unspecified laterality Lung location: unspecified part of lung Qualified Code(s): C34.90 - Malignant neoplasm of unspecified part of unspecified bronchus or lung Category: Medical Code(s): C34.90 - Malignant neoplasm of unspecified part of unspecified bronchus or lung Plan Patient continues to experience chronic pain throughout her spine and abdomen related to degenerative disc disease and lung cancer. Patient did have limited range of motion of her lumbar spine during today's visit. I have discussed with the patient that she may be a beneficial candidate of a intrathecal pain pump trial. Risk and benefits and educational handouts were given at today's visit. Patient states she would like time to review the information and get back to us. We will follow-up with the patient in 2 weeks for reevaluation of symptoms and plan of care. Educational handouts were given during today's visit. Patient has been instructed to contact the clinic with any concerns before the next appointment. Dr. Li has reviewed this note and agrees with this plan of care. This note was dictated using voice recognition software and make contain errors or omissions.
== END ==
LOC: SC.PAIN 08:56
PROVIDERS: PCP Internal Medicine; Visit Provider Nurse Practitioner Family
DX: M51.36 Other intervertebral disc degeneration, lumbar region (principal); M51.34 Other intervertebral disc degeneration, thoracic region; M54.2 Cervicalgia; C34.90 Malignant neoplasm of unspecified part of unspecified bronchus or lung
CPT/HCPCS: 99202; G0463

== ENCOUNTER → 2023-05-29 08:34 | Outpatient (POV) | payer MEDICARE, SELFPAY ==
[2023-05-29 08:50] VITALS: BP 200/91; PULSE 86; RESP 18; O2SAT 95; BMI 21.1
--- NOTE | 2023-05-29 09:00 | A.OFFVIS_ITS ---
[facility] Pain Management SOAP Note Subjective:: Patient is a pleasant 67-year-old female who presents today for 2-week follow- up. We are currently treating the patient for degenerative disc disease of thoracic and lumbar spine with neck pain and history of lung cancer. Patient rates her pain today 4 out of 10. Patient denies any new trauma or injury. At her last visit we did discuss that she may possibly benefit from a intrathecal pain pump trial however today she states she would like to wait. She does state that she has a follow-up appointment with her cancer doctor in June and she would like to make sure everything is going well with it. Patient states she continues to have chronic pain in her overall back as well as her abdomen. Patient is currently prescribed [place] 10 mg 3 times a day from her PCP. Her Gilbert has been reviewed and is appropriate. Review of Systems: General: No recent weight changes, no fever, no sleep disturbances Respiratory: No cough, no shortness of air, no recurring pulmonary infections Cardiovascular/peripheral vascular: No chest pain, no palpitations, no edema, no shortness of breath Gastrointestinal: No new onset incontinence, normal bowel movements reported Genitourinary: No new onset incontinence Musculoskeletal: Low back pain, abdominal pain Psychiatric: [Normal mood/affect] Neurological: [Denies weakness in extremities], [denies balance issues] Objective:: Physical Exam: General: Alert and oriented x3, no acute distress, pleasant and cooperative Lungs: Respirations even and unlabored, symmetrical chest expansion Eyes: PERRL Musculoskeletal: Flexion and extension of lumbar [spine] somewhat guarded secondary to pain, [antalgic gait noted] Neurological: Speech clear, no gross sensory deficit Assessment:: Degenerative disc disease of thoracic and lumbar spine with neck pain and history of lung cancer Plan:: Patient does state that she still is not quite ready to proceed forward with the intrathecal pain pump trial. Patient states that she would like to verify that everything is taking care of regarding her lung cancer before proceeding forward with any other options. I have counseled the patient that there is no gaspar and that we do want her to be comfortable with the plan of care. Patient will return to clinic in 2 months following her lung cancer follow-up for reevaluation of symptoms and plan of care. Patient has been instructed to contact the clinic with any concerns before the next appointment. Dr. Li has reviewed this note and agrees with this plan of care. This note was dictated using voice recognition software and make contain errors or omissions. [facility] Disclaimer: The information contained in this section may have been updated after the patient was seen, as this information can be updated by other users. Medical History Abnormal computerized axial tomography of chest COPD (chronic obstructive pulmonary disease) COPD mixed type Degenerative cervical disc Dyspnea on exertion Lung nodule Pulmonary emphysema Smoking greater than 30 pack years Surgical History History of appendectomy History of cholecystectomy History of hysterectomy History of lung surgery remover lower lobe right lung Family History Other COPD (chronic obstructive pulmonary disease) Family history of cancer Family history of myocardial infarction Hypertension Social History Smoking Status: Former smoker smoking status stop date: 05/2022 alcohol intake: never substance use type: denies use current occupational status: retired Travel in the last 8 weeks: None household members: spouse housing: house lives independently: No marital status: education level: high school service: No long term: No current occupational exposures/hazards: No caffeine: Yes special skip needs: No agree to transfusion: No do you feel safe at home: Yes victim of physical abuse: No victim of emotional abuse: No victim of sexual abuse: No would you like helpful sources: No
== END ==
PROVIDERS: PCP Internal Medicine; Visit Provider Nurse Practitioner Family
DX: M51.34 Other intervertebral disc degeneration, thoracic region (principal); M51.36 Other intervertebral disc degeneration, lumbar region; M54.2 Cervicalgia; Z85.118 Personal history of other malignant neoplasm of bronchus and lung
CPT/HCPCS: 99212; G0463

== ENCOUNTER 2023-11-30 08:14 | Outpatient (CLI) | payer MEDICARE, SELFPAY ==
--- NOTE | 2023-11-30 08:15 | MM_ITS ---
PROCEDURE INFORMATION: Exam: MG Bilateral Screening 3D Mammography Exam date and time: 11/30/2023 8:14 AM Age: 68 years old Clinical indication: Screening exam. TECHNIQUE: Imaging protocol: Bilateral Screening tomosynthesis and 2D mammography including computer-aided detection (CAD) when performed. COMPARISON: 1. MG MM DIG SCREENING MAMM BI W/CAD 01/17/2019 9:52 AM 2. MG DMSB DIG MAMM-SCREEN LUIS ARMANDO 07/30/2015 3:55 PM FINDINGS: MAMMOGRAPHY: Breast composition: There are scattered areas of fibroglandular density. Mass: No suspicious masses. Architectural distortion: None. Calcifications: No suspicious calcifications. Asymmetric density: None. Skin thickening: None. Axillary adenopathy: None. IMPRESSION: No mammographic evidence of malignancy. Annual screening is recommended unless otherwise clinically indicated. ASSESSMENT: BI-RADS Category 1: Negative
== END 2023-11-30 23:59 | disposition home or self-care (01) ==
LOC: RAD 08:15
PROVIDERS: PCP Internal Medicine; Visit Provider Family Medicine
DX: Z12.31 Encounter for screening mammogram for malignant neoplasm of breast (principal)
CPT/HCPCS: 77063; 77067

== ENCOUNTER 2024-01-30 13:48 | Outpatient (CLI) | payer MEDICARE, SELFPAY ==
[2024-01-30 13:29] LABS: Basophils # 0.2 K/mm3 (0-0.2); Basophils % 1.4 % (0.1-2.0); Eosinophils # 0.4 K/mm3 (0.0-0.4); Eosinophils % 3.3 % (0.1-12.0); Hematocrit 40.9 % (37.0-47.0); Hemoglobin 14.7 g/dL (12.2-16.2); Lymphocytes # 2.9 K/mm3 (0.7-4.5); Lymphocytes % 24.9 % (10-50); Mean Corpuscular Hemoglobin 32.2 pg (27.0-31.2); Mean Corpuscular Volume 89.6 fl (81-99); Mean Platelet Volume 8.8 fl (7.4-10.4); Monocytes # 0.9 K/mm3 (0.1-1.0); Monocytes % 7.4 % (1.7-9.3); Neutrophils # 7.4 K/mm3 (1.8-7.8); Platelet Count 542 K/mm3 (142-424); Red Blood Count 4.56 M/mm3 (4.20-5.40); Red Cell Distribution Width 13.4 % (11.5-17.5); White Blood Count 11.7 K/mm3 (4.8-10.8)
[2024-01-30 13:56] LABS: Alanine Aminotransferase 20 U/L (12-78); Albumin Level 4.9 g/dl (3.5-5.0); Albumin/Globulin Ratio 1.8 (1.1-1.8); Alkaline Phosphatase 83 U/L (38-126); Anion Gap 8.6 mEq/L (5-15); Aspartate Amino Transferase 35 U/L (14-36); Bilirubin,Total 0.8 mg/dl (0.2-1.3); Blood Urea Nitrogen 10 mg/dl (7-17); Calcium 9.8 mg/dl (8.4-10.2); Carbon Dioxide 31 mmol/L (22.0-30.0); Chloride 100 mmol/L (98-107); Chol/HDL Ratio 2.7 (1-3.5); Cholesterol 250 mg/dl (140-200); Estimated Glomerular Filt Rate 99 ml/min (>60); GFR (African American) 120 ML/MIN (>60); Globulin 2.7 g/dL (1.3-3.2); Glucose 73 mg/dl (74-100); HDL Cholesterol 93 mg/dl (40-60); Potassium 4.6 mmoL/L (3.5-5.1); Sodium 135 mmol/L (136-145); Total Protein,Serum 7.6 g/dl (6.3-8.2); Triglycerides 118 mg/dl (30-150); VLDL Cholesterol 24 mg/dL (0-40)
[2024-01-30 14:08] LABS: C-Reactive Protein 2.3 mg/L (0-4); Direct LDL Cholesterol 119.96 mg/dL (100-129)
[2024-01-30 14:13] LABS: Free T4 (Free Thyroxine) 1.25 ng/dl (0.78-2.19)
[2024-01-30 14:45] LABS: Vitamin B12 349 pg/mL (239-931)
[2024-01-30 15:10] LABS: Thyroid Stimulating Hormone 1.87 uIU/mL (0.465-4.68)
[2024-01-30 15:58] LABS: Hemoglobin A1C 5.6 % (4.0-6.0)
== END 2024-01-30 23:59 | disposition home or self-care (01) ==
LOC: LAB.DROPOF 13:48
PROVIDERS: PCP Internal Medicine; Visit Provider Internal Medicine
DX: R53.83 Other fatigue (principal); Z13.29 Encounter for screening for other suspected endocrine disorder; E55.9 Vitamin D deficiency, unspecified; Z13.21 Encounter for screening for nutritional disorder; I10 Essential (primary) hypertension; Z13.220 Encounter for screening for lipoid disorders; Z13.1 Encounter for screening for diabetes mellitus; Z00.00 Encounter for general adult medical examination without abnormal findings; E53.8 Deficiency of other specified B group vitamins; Z79.891 Long term (current) use of opiate analgesic; J44.9 Chronic obstructive pulmonary disease, unspecified
CPT/HCPCS: 80053; 80061; 82306; 82607; 83036; 84439; 84443; 85025; 86140

== ENCOUNTER 2024-06-01 13:31 | Emergency (ER) | payer MEDICARE, SELFPAY ==
[2024-06-01] VITALS (7 sets, daily range): BP systolic 139–176; BP diastolic 69–96; PULSE 67–112; RESP 16–18; TEMP 36.6–37.3; O2SAT 94–97; BMI 21.9
--- NOTE | 2024-06-01 13:57 | XR_ITS ---
PROCEDURE INFORMATION: Exam: XR Chest Exam date and time: 06/01/2024 2:01 PM Age: 68 years old Clinical indication: Dyspnea TECHNIQUE: Imaging protocol: Radiologic exam of the chest. Views: 1 view. COMPARISON: CT CHEST WO CON 05/24/2022 6:31 PM FINDINGS: Lungs: Hyperexpanded lung johnson consistent with COPD. No focal consolidation. Pleural spaces: Unremarkable. No pleural effusion. No pneumothorax. Heart/Mediastinum: Unremarkable. No cardiomegaly. Bones/joints: Unremarkable. IMPRESSION: Hyperexpanded lung johnson consistent with COPD.
[2024-06-01 13:59] LABS: Coronavirus 19, PCR Not Detected (NotDetected); Influenza A, PCR Not Detected (NotDetected); Influenza B, PCR Not Detected (NotDetected)
--- NOTE | 2024-06-01 13:59 | HMH.EDGENADL ---
Discharge Plan Disposition Patient Disposition: Home, Self-Care Condition: Fair Prescriptions Prescriptions: No Action Trelegy Ellipta 100-62.5-25 mcg blister with device See Rx Instructions .ROUTE .COMPLEX Qty: 60 6RF Dose Instruction: 1 PUFF INHALED BY MOUTH DAILY Rx Instructions: 1 PUFF INHALED BY MOUTH DAILY albuterol sulfate 90 mcg/actuation HFA aerosol inhaler See Rx Instructions .ROUTE .COMPLEX Qty: 8.5 0RF Dose Instruction: INHALE 2 PUFFS BY MOUTH FOUR TIMES DAILY NEEDED FOR SHORTNESS OF BREATH OR WHEEZING Rx Instructions: INHALE 2 PUFFS BY MOUTH FOUR TIMES DAILY NEEDED FOR SHORTNESS OF BREATH OR WHEEZING lisinopril 20 mg tablet See Rx Instructions .ROUTE .COMPLEX Qty: 90 0RF Dose Instruction: TAKE 1 TABLET BY MOUTH ONCE DAILY Rx Instructions: TAKE 1 TABLET BY MOUTH ONCE DAILY hydrocodone-acetaminophen 10-325 mg tablet 1 tab PO TID 30 Days Qty: 90 0RF Trelegy Ellipta 100-62.5-25 mcg blister with device 1 inh INHALATION DAILY Patient Comments: INHALE 1 PUFF BY MOUTH ONCE DAILY Referrals Follow up/Referrals: Stephen Loyd DO [Primary Care Provider] - See instructions Activity Restrictions/Add. Instructions Additional Instructions/Restrictions: Take Sudafed, Tylenol and ibuprofen for symptom control. If you develop high fevers, shortness of air, inability to tolerate fluids, please return for reevaluation. Follow-up with your primary care provider on Monday as previously scheduled. Please follow up with your primary care provider in 2-3 days. Please return to ED if your symptoms worsen, change in location, change in severity, new symptoms develop or if you become concerned for your health. Clinical Impressions Clinical Impression: Congestion of nasal sinus URI (upper respiratory infection) Qualifiers: URI type: unspecified viral URI Qualified Code(s): J06.9 - Acute upper respiratory infection, unspecified Instructions Patient Instructions: Common Cold Print Language Print Language: Malian Discharge ED Provider: Janel Avendano General Adult HPI <Lorie Dorantes MD - Last Filed: 06/01/24 15:05> General Chief complaint: Upper Respiratory Infection Stated complaint: head congestion Time Seen by Provider: 06/01/24 13:52 Mode of Arrival: Ambulatory Source of Information: Patient Limitations: No Limitations Description of Symptoms (Recalled from ER Triage Doc. by RN): Patient presents to triage ambulatory with her . Patient presents with general illness, coughing without production, head congestion, and a left ear ache. States she has had these symptoms since yesterday. States her doctor has been out this week. Patient had a lobectomy of the right lower lobe two years ago, and states she is concerned to not be seen. History of Present Illness HPI narrative: Patient is a 68-year-old female with a history of lung cancer who is status post lobectomy from 2 years ago who presents today with I feel rotten. She states that over the last several days she has had cough generalized weakness earache congestion. Given the fact that she had a lobectomy she is very concerned and wanted to get checked out. Related Data Home Medications ?Medication ?Instructions ?Recorded ?Confirmed fluticasone fur. 100 mcg-umeclid 1 inh inhalation DAILY 06/01/24 06/01/24 62.5 mcg-vilant 25 mcg inhalat.powder (Trelegy Ellipta) Previous Rx's ?Medication ?Instructions ?Recorded albuterol sulfate 90 mcg/actuation See Rx Instructions .Route 08/03/23 aerosol inhaler .COMPLEX #8.5 grams fluticasone fur. 100 mcg-umeclid See Rx Instructions .Route 01/30/24 62.5 mcg-vilant 25 mcg .COMPLEX #60 ea inhalat.powder (Trelegy Ellipta) lisinopril 20 mg tablet See Rx Instructions .Route 04/16/24 .COMPLEX #90 tabs hydrocodone 10 mg-acetaminophen 1 tab PO TID Pain 30 days #90 tabs 05/23/24 325 mg tablet Allergies Allergy/AdvReac Type Severity Reaction Status Date / Time atorvastatin AdvReac Intermediate Muscle Pain Verified 06/01/24 14:14 [facility] <Lorie Dorantes MD - Last Filed: 06/01/24 15:05> [facility] Disclaimer: The information contained in this section may have been updated after the patient was seen, as this information can be updated by other users. Medical History Abnormal computerized axial tomography of chest COPD (chronic obstructive pulmonary disease) COPD mixed type Cough Degenerative cervical disc Dyspnea on exertion Fluid level behind tympanic membrane of both ears Laceration of scalp Lung mass Lung nodule Post-nasal drainage Pulmonary emphysema Sinus drainage Sinus pain Sinus pressure Sinusitis Smoking greater than 30 pack years Sore throat Surgical History History of appendectomy History of cholecystectomy History of hysterectomy History of lung surgery remover lower lobe right lung Family History Other COPD (chronic obstructive pulmonary disease) Family history of cancer Family history of myocardial infarction Hypertension Social History Smoking Status: Never smoker smoking status stop date: 05/2022 alcohol intake: never substance use type: denies use current occupational status: retired Travel in the last 8 weeks: None household members: spouse housing: house lives independently: No marital status: education level: high school service: No longterm: No current occupational exposures/hazards: No caffeine: Yes special skip needs: No agree to transfusion: No do you feel safe at home: Yes victim of physical abuse: No victim of emotional abuse: No victim of sexual abuse: No would you like helpful sources: No Have you lived/traveled outside [place] in past 30 days?: No Contact w/someone who lives/traveled outside [place] past 30 days?: No Exposure to someone with infectious disease in past 14 days?: No Do you have a fever (greater than 100.4 F or 38 C)?: No Have you tested positive for COVID-19: No Exposed to someone with COVID-19 in past 14 days?: No Do you have a sore throat?: No Do you have a cough?: No Do you have any weakness?: No Do you have any diarrhea?: No Are you experiencing any unusual bleeding?: No Do you have any muscle aches/pain?: No Do you have any abdominal pain?: No Are you experiencing loss of taste or smell?: No Other Medical History Have you received the Flu Vaccine for this season: No Have you received the Pneumonia Vaccine: No <Lorie Dorantes MD - Last Filed: 06/01/24 15:05> ROS Obtained: Yes All systems reviewed & no additional complaints except as documented Physical Exam <Lorie Dorantes MD - Last Filed: 06/01/24 15:05> General General appearance: alert and in no apparent distress Respiratory Respiratory exam: Present normal lung sounds bilaterally and other (Oxygen saturations 95% on room air); Absent respiratory distress, wheezes or stridor Cardiovascular Cardiovascular exam: Present tachycardia (Heart rate 120 my exam) Neurological Exam Neurological exam: Present alert and oriented X3 Medical Decision Making <Lorie Dorantes MD - Last Filed: 06/01/24 15:05> Medical Records Screening: Per USPSTF and CDC recommendations, given the prevalence of disease in our region, it is our hospital?s policy to screen for HIV and viral Hepatitis for all patients aged 18 and over and those with ongoing risk factors. [place] Inquiry Pt receiving controlled substance: No Vital Signs: 06/01/24 13:42 06/01/24 14:09 06/01/24 14:30 Temperature 99.1 F Temperature Source Oral Pulse Rate 112 H 79 Pulse Rate [Radial] 100 H Respiratory Rate 16 Blood Pressure 169/92 H 139/74 Blood Pressure [R Arm] 176/96 H Blood Pressure Mean 95 Blood Pressure Mean [R Arm] 122 Blood Pressure Source [R Arm] Automatic Cuff 02 Sat by Pulse Oximetry 95 94 L 94 L Oxygen Delivery Method Room Air Room Air Room Air 06/01/24 15:03 06/01/24 15:30 06/01/24 16:00 Temperature Temperature Source Pulse Rate 67 67 72 Pulse Rate [Radial] Respiratory Rate Blood Pressure 155/71 H 154/69 H 156/85 H Blood Pressure [R Arm] Blood Pressure Mean Blood Pressure Mean [R Arm] Blood Pressure Source [R Arm] 02 Sat by Pulse Oximetry 94 L 94 L 96 Oxygen Delivery Method Room Air Room Air Room Air Lab Data Lab results reviewed: Yes I reviewed the patient's lab results. Lab Results 06/01/24 13:49: Group A Strep Rapid Negative 06/01/24 13:50: SARS-CoV-2 (PCR) Not detected, Influenza A Untype (PCR) Not detected, Influenza Type B (PCR) Not detected 06/01/24 14:05: WBC 18.9 H, RBC 4.82, Hgb 14.3, Hct 42.7, MCV 88.6, MCH 29.7, MCHC 33.5, RDW 12.6, Plt Count 501 H, MPV 9.5, Neut % (Auto) 71.7, Lymph % (Auto) 17.4, [place] % (Auto) 7.9, Eos % (Auto) 2.0, Baso % (Auto) 0.7, Neut # (Auto) 13.5 H, Lymph # (Auto) 3.3, [place] # (Auto) 1.5 H, Eos # (Auto) 0.4, Baso # (Auto) 0.1, Sodium 137, Potassium 4.1, Chloride 100, Carbon Dioxide 29, Anion Gap 12.1, BUN 8, Creatinine 0.70, Estimated Creat Clear 43, Estimated GFR 83, Est GFR ( Amer) 100, Glucose 98, Calcium 9.5, Total Bilirubin 0.8, AST 42 H, ALT 24, Alkaline Phosphatase 107, Total Protein 8.2, Albumin 5.3 H, Globulin 2.9, Albumin/Globulin Ratio 1.8 06/01/24 14:05 06/01/24 14:05 Orders (Tests/Meds): ED MEDICATIONS Discontinued Medications Generic Name Dose Route Start Last Admin Trade Name Freq PRN Reason Stop Dose Admin Sodium Chloride 500 mls @ 999 mls/hr 06/01/24 13:57 06/01/24 14:10 Sod Chlor 0.9% 1000ml Bag IV 06/01/24 14:27 999 mls/hr .Q31M ONE Administration Ketorolac Tromethamine 15 mg 06/01/24 13:57 06/01/24 14:10 Ketorolac 30mg/Ml Vial IV 06/01/24 13:58 15 mg ONCE ONE Administration ORDERS Category Date Time Status CXR --portable [XR chest portable] Stat Exams 06/01/24 13:57 Completed CBC w/Auto Diff [Complete Blood Count Auto Diff] Stat Lab 06/01/24 14:05 Results CMP [Comprehensive Metabolic Panel] Stat Lab 06/01/24 14:05 Completed Rapid PCR Covid and Flu A/B Stat Lab 06/01/24 13:50 Completed Strep Scrn Group A (Rapid) Stat Lab 06/01/24 13:49 Completed Strep Screen Confirmation Stat Micro 06/01/24 13:49 Received Medical Decision Narrative: 68-year-old with 24 hours of viral symptoms most likely secondary to the flu given its endemic nature at the moment. However we will check a COVID and flu swab get a chest x-ray to rule out any bacterial infection such as pneumonia. Patient is significantly tachycardic will give her IV fluids and IV Toradol to make her symptoms improved. And will reassess after this initial workup is complete. Chest x-ray performed which I personally interpreted which shows hyperexpanded lung johnson but no focal consolidation. Reassessment 3:04 PM patient feeling much better heart rate down into the 80s labs unremarkable she is pending her COVID and flu test which will change management lead if positive given she has had symptoms less than 48 hours and she has high risk for complications. Care will be transitioned to Dr. Avendano at 30 p.m. to follow-up that final result. <Janel Avendano MD - Last Filed: 06/01/24 16:13> Medical Records Medical records reviewed: Yes I reviewed the patient's medical records. Vital Signs: 06/01/24 13:42 06/01/24 14:09 06/01/24 14:30 Temperature 99.1 F Temperature Source Oral Pulse Rate 112 H 79 Pulse Rate [Radial] 100 H Respiratory Rate 16 Blood Pressure 169/92 H 139/74 Blood Pressure [R Arm] 176/96 H Blood Pressure Mean 95 Blood Pressure Mean [R Arm] 122 Blood Pressure Source [R Arm] Automatic Cuff 02 Sat by Pulse Oximetry 95 94 L 94 L Oxygen Delivery Method Room Air Room Air Room Air 06/01/24 15:03 06/01/24 15:30 06/01/24 16:00 Temperature Temperature Source Pulse Rate 67 67 72 Pulse Rate [Radial] Respiratory Rate Blood Pressure 155/71 H 154/69 H 156/85 H Blood Pressure [R Arm] Blood Pressure Mean Blood Pressure Mean [R Arm] Blood Pressure Source [R Arm] 02 Sat by Pulse Oximetry 94 L 94 L 96 Oxygen Delivery Method Room Air Room Air Room Air Lab Data Lab Results 06/01/24 13:49: Group A Strep Rapid Negative 06/01/24 13:50: SARS-CoV-2 (PCR) Not detected, Influenza A Untype (PCR) Not detected, Influenza Type B (PCR) Not detected 06/01/24 14:05: WBC 18.9 H, RBC 4.82, Hgb 14.3, Hct 42.7, MCV 88.6, MCH 29.7, MCHC 33.5, RDW 12.6, Plt Count 501 H, MPV 9.5, Neut % (Auto) 71.7, Lymph % (Auto) 17.4, [place] % (Auto) 7.9, Eos % (Auto) 2.0, Baso % (Auto) 0.7, Neut # (Auto) 13.5 H, Lymph # (Auto) 3.3, [place] # (Auto) 1.5 H, Eos # (Auto) 0.4, Baso # (Auto) 0.1, Sodium 137, Potassium 4.1, Chloride 100, Carbon Dioxide 29, Anion Gap 12.1, BUN 8, Creatinine 0.70, Estimated Creat Clear 43, Estimated GFR 83, Est GFR ( Amer) 100, Glucose 98, Calcium 9.5, Total Bilirubin 0.8, AST 42 H, ALT 24, Alkaline Phosphatase 107, Total Protein 8.2, Albumin 5.3 H, Globulin 2.9, Albumin/Globulin Ratio 1.8 Orders (Tests/Meds): ED MEDICATIONS Discontinued Medications Generic Name Dose Route Start Last Admin Trade Name Freq PRN Reason Stop Dose Admin Sodium Chloride 500 mls @ 999 mls/hr 06/01/24 13:57 06/01/24 14:10 Sod Chlor 0.9% 1000ml Bag IV 06/01/24 14:27 999 mls/hr .Q31M ONE Administration Ketorolac Tromethamine 15 mg 06/01/24 13:57 06/01/24 14:10 Ketorolac 30mg/Ml Vial IV 06/01/24 13:58 15 mg ONCE ONE Administration ORDERS Category Date Time Status CXR --portable [XR chest portable] Stat Exams 06/01/24 13:57 Completed CBC w/Auto Diff [Complete Blood Count Auto Diff] Stat Lab 06/01/24 14:05 Results CMP [Comprehensive Metabolic Panel] Stat Lab 06/01/24 14:05 Completed Rapid PCR Covid and Flu A/B Stat Lab 06/01/24 13:50 Completed Strep Scrn Group A (Rapid) Stat Lab 06/01/24 13:49 Completed Strep Screen Confirmation Stat Micro 06/01/24 13:49 Received Medical Decision Narrative: 68-year-old with 24 hours of viral symptoms most likely secondary to the flu given its endemic nature at the moment. However we will check a COVID and flu swab get a chest x-ray to rule out any bacterial infection such as pneumonia. Patient is significantly tachycardic will give her IV fluids and IV Toradol to make her symptoms improved. And will reassess after this initial workup is complete. Chest x-ray performed which I personally interpreted which shows hyperexpanded lung johnson but no focal consolidation. Reassessment 3:04 PM patient feeling much better heart rate down into the 80s labs unremarkable she is pending her COVID and flu test which will change management lead if positive given she has had symptoms less than 48 hours and she has high risk for complications. Care will be transitioned to Dr. Avendano at 3 p.m. to follow-up that final result. Romana: Upon my assumption of care, patient continues to be hemodynamically stable and in no acute distress. Patient's respiratory swab resulted as negative, therefore no indication for Tamiflu at this time. I discussed patient's results with her at bedside and recommended Sudafed as well as other symptomatic management with Tylenol and ibuprofen. Patient encouraged to rest and encourage water intake. Patient given strict return precautions. Patient states she has a follow-up with her PCP on Monday and was advised to keep that appointment. Patient and spouse in agreement with this plan. Patient discharged in stable condition. Janel Avendano MD Critical Care <Lorie Dorantes MD - Last Filed: 06/01/24 15:05> Critical Care Time Critical Care Time: No
--- NOTE | 2024-06-01 14:05 | PC.NURSE ---
xray at bs
[2024-06-01] MEDS: KETOROLAC 30MG/ML VIAL 15 MG IV (14:10)
[2024-06-01] MEDS: 0.9 % SODIUM CHLORIDE 1000ML 500 ML 999 ML IV (14:10)
[2024-06-01 14:15] LABS: Basophils # 0.1 K/mm3 (0-0.2); Basophils % 0.7 % (0.1-2.0); Eosinophils # 0.4 K/mm3 (0.0-0.4); Hematocrit 42.7 % (37.0-47.0); Hemoglobin 14.3 g/dL (12.2-16.2); Lymphocytes # 3.3 K/mm3 (0.7-4.5); Lymphocytes % 17.4 % (10-50); Mean Corpuscular HGB Conc 33.5 g/dL (31.8-35.4); Mean Corpuscular Hemoglobin 29.7 pg (27.0-31.2); Mean Corpuscular Volume 88.6 fl (81-99); Mean Platelet Volume 9.5 fl (7.4-10.4); Monocytes # 1.5 K/mm3 (0.1-1.0); Monocytes % 7.9 % (1.7-9.3); Neutrophils # 13.5 K/mm3 (1.8-7.8); Neutrophils % 71.7 % (37.0-80.0); Platelet Count 501 K/mm3 (142-424); Red Blood Count 4.82 M/mm3 (4.20-5.40); Red Cell Distribution Width 12.6 % (11.5-17.5); White Blood Count 18.9 K/mm3 (4.8-10.8)
[2024-06-01 14:16] LABS: Albumin Level 5.3 g/dl (3.5-5.0); Chloride 100 mmol/L (98-107)
[2024-06-01 14:17] LABS: MANUAL DIFFERENTIAL MANUAL DIFFERENTIAL (MANUAL DIFF); Potassium 4.1 mmoL/L (3.5-5.1)
[2024-06-01 14:19] LABS: Alanine Aminotransferase 24 U/L (12-78); Alkaline Phosphatase 107 U/L (38-126); Aspartate Amino Transferase 42 U/L (14-36); Bilirubin,Total 0.8 mg/dl (0.2-1.3); Blood Urea Nitrogen 8 mg/dl (7-17); Carbon Dioxide 29 mmol/L (22.0-30.0); Creatinine Clearance Estimated 43 mL/min (50-200); Estimated Glomerular Filt Rate 83 ml/min (>60); GFR (African American) 100 ML/MIN (>60); Total Protein,Serum 8.2 g/dl (6.3-8.2)
[2024-06-01 14:20] LABS: Albumin/Globulin Ratio 1.8 (1.1-1.8); Calcium 9.5 mg/dl (8.4-10.2); Globulin 2.9 g/dL (1.3-3.2); Glucose 98 mg/dl (74-100)
[2024-06-01 14:27] LABS: Anion Gap 12.1 mEq/L (5-15); Sodium 137 mmol/L (136-145)
[2024-06-01 14:38] LABS: Strep Scrn Group A (Rapid) Negative (Negative)
[2024-06-01 16:50] LABS: Lymphocytes % 18 % (10-50); Monocytes % 6 % (2-9); Neutrophils % 76 % (42-76); Platelet Estimate Normal; RBC Morphology Normal; Total Cells Counted 100
== END 2024-06-01 16:16 | disposition home or self-care (01) ==
PROVIDERS: Student in an Organized Health Care Education/Training Program; Emergency Provider Student in an Organized Health Care Education/Training Program; PCP Internal Medicine
DX: J06.9 Acute upper respiratory infection, unspecified (principal); R05.9 Cough, unspecified; R09.81 Nasal congestion; H92.02 Otalgia, left ear; R53.1 Weakness
CPT/HCPCS: 71045; 80053; 85007; 85025; 85027; 87430; 87636; 96361; 96374; 99283; J1885; J7030

== ENCOUNTER 2024-06-05 09:30 | Outpatient (CLI) | payer MEDICARE, SELFPAY | END 2024-06-05 23:59 | disposition home or self-care (01) | LOC: LAB.DROPOF 06-06 09:21 | PROVIDERS: PCP Internal Medicine; Visit Provider Internal Medicine | DX: J06.9 Acute upper respiratory infection, unspecified (principal) | CPT/HCPCS: 87070; 87205 ==

== ENCOUNTER 2024-07-31 10:59 | Outpatient (CLI) | payer MEDICARE, SELFPAY ==
[2024-07-31 10:22] LABS: Microscopic, Urine URINE MICROSCOPIC (MICROSCOPIC)
[2024-07-31 11:41] LABS: Appearance,Urine CLEAR (Clear); Bilirubin,Urine Negative (Negative); Blood, Urine 2+ (Negative); Color,Urine YELLOW (Yellow); Glucose,Urine (UA) Negative (Negative); Ketones,Urine Negative (Negative); Leukocyte Esterase,Urine 1+ (Negative); Nitrate,Urine Negative (Negative); Protein,Urine 1+ (Negative); Urobilinogen,Urine 0.2 EU/dl (0.2)
[2024-07-31 12:34] LABS: WBC,Urine TNTC #/hpf (0-3)
== END 2024-07-31 23:59 | disposition home or self-care (01) ==
LOC: LAB.DROPOF 10:59
PROVIDERS: PCP Internal Medicine; Visit Provider Internal Medicine
DX: R39.15 Urgency of urination (principal); R30.9 Painful micturition, unspecified; R11.0 Nausea; R31.9 Hematuria, unspecified; B96.20 Unspecified Escherichia coli [E. coli] as the cause of diseases classified elsewhere
CPT/HCPCS: 81001; 87086; 87088; 87186

== ENCOUNTER 2024-08-08 07:45 | Outpatient (CLI) | payer MEDICARE, SELFPAY ==
--- NOTE | 2024-08-08 08:00 | US_ITS ---
FINAL REPORT TECHNIQUE: Sonographic images of the thyroid were obtained. CLINICAL HISTORY: Thyroid nodule COMPARISON: None FINDINGS: THYROID ULTRASOUND The right thyroid gland measures 3.9 x 1.6 x 1.2 cm. The parenchyma shows normal echogenicity. No dominant mass is seen. The left thyroid gland measures 4.0 x 1.8 x 1.0 cm. The parenchyma shows normal echogenicity. Nodules are noted in the left lobe of the thyroid. The dominant nodule measures 1.8 x 1.1 cm. It is hypoechoic, solid, TI-RADS 4. There is a 6 mm anechoic focus probably due to a colloid cyst. IMPRESSION: Hypoechoic, solid left thyroid nodule measuring 1.8 x 1.1 cm, TI-RADS 4. Recommend FNA per TI-RADS criteria. Reviewed, Interpreted and Dictated by Moshe Pineda MD Transcribed by China Jules Authenticated and [facility]
== END 2024-08-08 23:59 | disposition home or self-care (01) ==
LOC: RAD 07:46
PROVIDERS: PCP Internal Medicine; Visit Provider Internal Medicine
DX: E04.1 Nontoxic single thyroid nodule (principal)
CPT/HCPCS: 76536

== ENCOUNTER 2024-08-14 07:47 | Outpatient (CLI) | payer MEDICARE, SELFPAY ==
--- NOTE | 2024-08-14 08:00 | US_ITS ---
FINAL REPORT CLINICAL HISTORY: ESAU LIEBEMRAN -- LT THYROID NODULE FINDINGS: Ultrasound guided thyroid biopsy. HISTORY: Left thyroid nodule Attending radiologist: Dr. Pineda Physician [employer] Supervisor: Esau Taylor PA-C PROCEDURE: After informed consent was obtained and a time-out was performed, the patient was prepped and draped in usual sterile fashion over the left neck. Utilizing local anesthesia and sterile technique with a 25-gauge needle, access to lesion was obtained. A total of 4 passes were made under direct ultrasound guidance. The patient received no conscious sedation. The patient tolerated procedure well and left the department in good condition. IMPRESSION: Status post ultrasound guided biopsy of thyroid without immediate complication. Reviewed, Interpreted and Dictated by Moshe Pineda MD Transcribed by MIO Price Authenticated and [facility]
== END 2024-08-14 23:59 | disposition home or self-care (01) ==
PROVIDERS: PCP Internal Medicine; Visit Provider Internal Medicine
DX: E04.1 Nontoxic single thyroid nodule (principal)
CPT/HCPCS: 10005; 88173; 88305

== ENCOUNTER 2025-04-04 14:17 | Outpatient (CLI) | payer MEDICARE, SELFPAY ==
--- OUTSIDE RECORDS SUMMARY | 2025-02-05 08:43 | XMS_ITS | Encounter Summary ---
Author Organization [facility] Address [address] [place] [address] Care Team Providers Care Asthma Educator Name Role Phone Ortega Roach MD Primary Care Provider [phone] Ortega Vo MD Unavailable [phone] Reason for Visit * Imaging (Routine) - Closed Specialty Diagnoses / Procedures Referred By Contac t Referred To Contact Radiology Diagnoses Malignant neoplasm of lower lobe of right lung Procedures PET/CT FDG Skull Base To Mid Thigh Miriam Wellington MD [address] [facility] [address] [place] [address] Phone: tel: fax: Referral ID Status Reason Start Date Expiration Date Visits Re quested Visits Authorized [id number] Closed 01/08/2025 07/10/2026 2 2 Encounter Details Date Type Department Care Team (Latest Contact Info) Description 02/05/2025 9:43 AM EDT - 02/05/2025 11:59 PM EDT Hospital Encounter [facility] PET Scan [address] [place] [address] Discharge Disposition: Home or Self Care Social History Tobacco Use Types Packs/Day Years Used Date Smoking Tobacco: Former Cigarettes 1 49 0 06/08/1973 - 06/08/2022 Passive Smoke Exposure: Never Smokeless Tobacco: Never Alcohol Use Standard Drinks/Week Comments Never 0 (1 standard drink = 0.6 oz pur e alcohol) PHQ-2 Answer Date Recorded Patient Health Questionnaire-2 Score 2 07/08/2022 CAGE ASSESSMENT Answer Date Recorded Cage unable to access Not on file 08/23/2022 Cage max number of drinks Not on file 2022 Cage Beverages a week Not on file 08/23/2022 Have you ever felt you should CUT down on your d rinking? 0 08/23/2022 Have you been ANNOYED by people criticizing your drinking? 0 08/23/2022 Have you felt GUILTY about your drinking? 0 08/23/2022 Have you had a drink first t christin in the morning (EYE-COMMUNITY RESOURCE OFFICER) to steady your nerves or to get rid of a hangover? 0 08/23/2022 CAGE Questionnaire Score 0 023 PHQ-2A Answer Date Recorded Patient Health Questionnaire-2 Score 2 07/08/2022 Comments No Sex and Gender Information Value Date Recorded Sex Assigned at Female 06/16/2022 1:16 PM EST Legal Sex Female 8:50 PM EDT Gender Identity Female 06/16/2022 1:16 PM EST Sexual Orientation Straight 06/16/2022 1: 16 PM EST documented as of this encounter Medications at Time of Discharge albuterol 108 (90 Base) MCG/ACT inhaler 2 puffs 4 times a day as needed. Patient only uses as needed . 06/02/2022 HYDROcodone-aceta minophen ([place]) 10-325 MG tablet 1 tablet 3 times a day as needed for severe pain. lisinopril-hydroC HLOROthiazide 20-12.5 MG tablet Take 1 tablet by mouth daily. 12/04/2023 ramelteon (Rozerem) 8 MG tablet Take 1 tablet by mouth nightly. 01/16/2025 Trelegy Ellipta 100-62.5-25 MCG/ACT aerosol powder Inhale 1 puff daily. 06/02/2022 MELATONIN PO Take by mouth. 03/29/2025 documented as of this encounter Plan of Treatment Upcoming Encounters Date Type Department Care Team (Late st Contact Info) Description 04/07/2025 1:30 PM EST Appointment [facility] Radiation [address] [id number] [place] [address] Emma Hidalgo MD documented as of this encounter Procedures Procedure Name Priority Date/Time Associated Diagnosis Comments PET/CT FDG SKULL BASE TO MID THIGH Routine 02/05/2025 11:00 AM EDT Malignant neoplasm of lower lobe of right lung documented in this encounter Results * PET/CT FDG Skull Base To Mid Thigh (02/05/2025 11:00 AM EDT) Anatomical Region Laterality Modality Positron Emissio n Tomography (PET) Impressions 02/05/2025 4:17 PM EDT 1. The questionable growing spiculated peripheral right upper lobe nodule shows intense FDG uptake and highly suspicious for malignancy. Tissue sampling recommended. 2. Surgical changes from prior right lower lobectomy with no suspicious focal uptake at surgical bed. 3. No evidence of metabolically active regional arianna or distant metastatic disease. CRITICAL RESULT: No. COMMUNICATION: Per this written report. 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 Status post robotic right lower lobectomy 08/23/2022. A recent CT Chest 01/08/25 demonstrated interval growth of RUL nodule from 7mm to 13mm in six months, presenting for further workup and subsequent treatment planning. TECHNIQUE: Preparation: Last oral intake (except water) on 02/04/2025 at 2100. Diabetic: No. Blood glucose at time of FDG administration: 97 mg/dL. Radiopharmaceutical: 14 mCi of F-18 FDG administered intravenously at left antecubital fossa at 0 958. Incubation interval: 60 minutes. Oral contrast: None. Positioning: Arms raised. PET/CT scanner: WrapMail scanner, [id number]. PET/CT acquisition: Pfaimq-cc-ztv-thighs. Standardized uptake value (SUV): Corrected for body weight only. CT: Low-dose, [id number]-[id number], without intravenous contrast. TOTAL DLP (Dose Length Product): 374.4 mGy cm. COMPARISON/CORRELATION: Compared to prior PET/CT from 07/20/2022. No correlative imaging. FINDINGS: Technical quality: Diagnostic. Measurements: Unless otherwise specified, all SUVs refer to maximum value in the target (mSUV). Reference: Reference: mean SUV liver: 2.5; previously: 2.1. CT linear measurements performed on axial images. Head and Neck: No suspicious metabolically active lesions within the head and neck. No suspicious metabolically active or pathologically enlarged adenopathy. An FDG avid hypoattenuating 9 x 7 mm left thyroid nodule image 115, otherwise unremarkable thyroid gland. Bilateral, left more than right, maxillary sinus and ethmoid air-cell mucosal thickening. Intensely hypermetabolic dense material within the left maxillary sinus maximum SUV 11.7 image 479, raise concern for atypical infection. Chest: The questionable growing 13 mm spiculated peripheral right upper lobe nodule shows intense FDG uptake with maximum SUV of 13 image 282. Surgical changes from prior right lower lobectomy with no suspicious focal uptake at surgical bed. No other suspicious metabolically active lesions within the chest. No suspicious metabolically active or pathologically enlarged hilar or mediastinal adenopathy. Upper lobe predominant centrilobular and paraseptal emphysematous changes. Bilateral apical scarring, minimal bibasilar atelectasis, mild middle lobe and lingular scarring. Sequelae of prior granulomatous insult. Aortic and coronary calcifications. Dilatation of the thoracic aorta. No pleural effusion, pericardial effusion or pneumothorax. Abdomen and Pelvis: No suspicious metabolically active lesions within the abdomen and pelvis. No suspicious metabolically active or pathologically enlarged retroperitoneal or pelvic adenopathy. Solid Abdominal Organs: No suspicious focal hypermetabolic lesions in the liver significantly greater than the heterogeneous physiologic uptake. Unremarkable noncontrast appearance of the liver. Cholecystectomy. No biliary ductal dilatation. Spleen not visualized, might be surgically removed, atrophied or congenitally absent. Small exophytic left renal cyst. Otherwise unremarkable kidneys. No hydronephrosis. No suspicious adrenal masses. No suspicious pancreatic findings. GI Tract/Mesentery/Peritoneum: Physiologic bowel activity, without suspicious focal FDG uptake. The large and small bowel appear normal in caliber. Sigmoid diverticulosis without noncontrast CT evidence of diverticulitis. No suspicious peritoneal/mesenteric findings. Pelvic Viscera: No pelvic masses Hysterectomy. Vasculature: Calcified atherosclerotic changes. Free Fluid: No ascites or drainable fluid collection Skeleton and Soft Tissues: No suspicious metabolically active osseous or soft tissue lesions. No aggressive osseous lytic or sclerotic lesions. Grossly stable non-FDG avid 6 mm mass within the upper inner quadrant of the left breast. Multilevel degenerative changes. Injection site activity. Stable non-FDG avid bilateral buttocks calcifications, likely injection granulomas. 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 A recent CT Chest01/08/25 demonstrated interval growth of RUL nodule from 7mm to 13mm in sixmonths, presenting for further workup and subsequent treatment planning. TECHNIQUE: Preparation: Last oral intake (except water) on 02/04/2025 at 2100. Diabetic: No. Blood glucose at time of FDG administration: 97 mg/dL. Radiopharmaceutical: 14 mCi of F-18 FDG administered intravenously at leftantecubital fossa at 0 958. Incubation interval: 60 minutes. Oral contrast: None. Positioning: Arms raised. PET/CT scanner: WrapMail scanner, [id number]. PET/CT acquisition: Eakrck-qy-gag-thighs. Standardized uptake value (SUV): Corrected for body weight only. CT: Low-dose, [id number]-nbnwcp-kmev, without intravenous contrast. TOTAL DLP (Dose Length Product): 374.4 mGy cm. COMPARISON/CORRELATION: Compared to prior PET/CT from 07/20/2022. No correlative imaging. FINDINGS: Technical quality: Diagnostic. Measurements: Unless otherwise specified, all SUVs refer to maximum valuein the target (mSUV). Reference: Reference: mean SUV liver: 2.5; previously: 2.1. CT linear measurements performed on axial images. Head and Neck: No suspicious metabolically active lesions within the head and neck. No suspicious metabolically active or pathologically enlargedadenopathy. An FDG avid hypoattenuating 9 x 7 mm left thyroid nodule image 115,otherwise unremarkable thyroid gland. Bilateral, left more than right, maxillary sinus and ethmoid air-cellmucosal thickening. Intensely hypermetabolic dense material within theleft maxillary sinus maximum SUV 11.7 image 479, raise concern foratypical infection. Chest: The questionable growing 13 mm spiculated peripheral right upper lobenodule shows intense FDG uptake with maximum SUV of 13 image 282. Surgical changes from prior right lower lobectomy with no suspicious focaluptake at surgical bed. No other suspicious metabolically active lesions within the chest. No suspicious metabolically active or pathologically enlarged hilar ormediastinal adenopathy. Upper lobe predominant centrilobular and paraseptal emphysematouschanges. Bilateral apical scarring, minimal bibasilar atelectasis, mild middle lobeand lingular scarring. Sequelae of prior granulomatous insult. Aortic and coronary calcifications. Dilatation of the thoracic aorta. No pleural effusion, pericardial effusion or pneumothorax. Abdomen and Pelvis: No suspicious metabolically active lesions within the abdomen andpelvis. No suspicious metabolically active or pathologically enlargedretroperitoneal or pelvic adenopathy. Solid Abdominal Organs: No suspicious focal hypermetabolic lesions in the liver significantlygreater than the heterogeneous physiologic uptake. Unremarkablenoncontrast appearance of the liver. Cholecystectomy. No biliary ductal dilatation. Spleen not visualized, might be surgically removed, atrophied orcongenitally absent. Small exophytic left renal cyst. Otherwise unremarkable kidneys. Nohydronephrosis. No suspicious adrenal masses. No suspicious pancreatic findings. GI Tract/Mesentery/Peritoneum: Physiologic bowel activity, without suspicious focal FDG uptake. The large and small bowel appear normal in caliber. Sigmoid diverticulosis without noncontrast CT evidence ofdiverticulitis. No suspicious peritoneal/mesenteric findings. Pelvic Viscera: No pelvic masses Hysterectomy. Vasculature: Calcified atherosclerotic changes. Free Fluid: No ascites or drainable fluid collection Skeleton and Soft Tissues: No suspicious metabolically active osseous or soft tissue lesions. No aggressive osseous lytic or sclerotic lesions. Grossly stable non-FDG avid 6 mm mass within the upper inner quadrant ofthe left breast. Multilevel degenerative changes. Injection site activity. Stable non-FDG avid bilateral buttocks calcifications, likely injectiongranulomas. IMPRESSION: 1.The questionable growing spiculated peripheral right upper lobe noduleshows intense FDG uptake and highly suspicious for malignancy. Tissuesampling recommended. 2.Surgical changes from prior right lower lobectomy with no suspiciousfocal uptake at surgical bed. 3.No evidence of metabolically active regional arianna or distantmetastatic disease. CRITICAL RESULT: No. COMMUNICATION: Per this written report. Drafted by Vanessa Hoang MD on 02/05/2025 3:46 PM Final report signed by Vanessa Hoang MD on 02/05/2025 4:17 PM us Miriam Wellington MD IMG NM PROCEDURES Final R esult documented in this encounter Visit Diagnoses Not on filedocumented in this encounter Additional Health Concerns Assessment Noted Time A fall risk assessment has been complete d for the patient 01/08/2025 12:59 PM EDT A Body Mass Index follow-up plan has been documented for the patient 01/10/2025 3:26 PM EDT documented as of this encounter Care Teams Asthma Educator Relationship Specialty Start Date End Date Ortega Roach MD [address] [place], [place] [id number] PCP - General 06/09/22 03/30/25 Ortega Vo MD [address] [place] [address] Referring Physician 01/08/25 documented as of this encounter
--- OUTSIDE RECORDS SUMMARY | 2025-02-05 08:43 | XMS_ITS | Encounter Summary ---
Author Organization [facility] Address [address] [id number] Care Team Providers Care Molder Feeder Name Role Phone Ortega Roach MD Primary Care Provider [phone] Ortega Vo MD Unavailable [phone] Reason for Referral * Imaging (Routine) - Closed Specialty Diagnoses / Procedures Referred By Ramu pa Referred To Contact Radiology Diagnoses Malignant neoplasm of lower lobe of right lung Procedures PET/CT FDG Skull Base To Mid Thigh Miriam Wellington MD [address] [address] Phone: tel: fax: Referral ID Status Reason Start Date Expiration Date Visits Re quested Visits Authorized [id number] Closed 01/08/2025 07/10/2026 2 2 Reason for Visit * Imaging (Routine) - Closed Specialty Diagnoses / Procedures Referred By Ramu pa Referred To Contact Radiology Diagnoses Malignant neoplasm of lower lobe of right lung Procedures PET/CT FDG Skull Base To Mid Thigh Miriam Wellington MD [address] [address] Phone: tel: fax: Referral ID Status Reason Start Date Expiration Date Visits Re quested Visits Authorized [id number] Closed 01/08/2025 07/10/2026 2 2 Encounter Details Date Type Department Care Team (Latest Contact Info) Description 02/05/2025 9:43 AM EDT - 02/05/2025 11:59 PM EDT Hospital Encounter [facility] PET Scan [address] [place] [address] Malignant neoplasm of lower lobe of right lung Discharge Disposition: Home or Self Care Social [...] drink first t christin in the morning (EYE-PASSENGER RELATIONS REPRESENTATIVE) to steady your nerves or to get [...] uses as needed . 06/02/2022 HYDROcodone-aceta minophen ([place]) 10-325 MG tablet 1 tablet 3 times [...] PM EST Appointment [facility] Rad[facility] [id number] [place] [address] Emma Hidalgo MD documented as of this [...] 3. No evidence of metabolically active regional raianna or distant metastatic disease. CRITICAL RESULT: No. [...] contrast: None. Positioning: Arms raised. PET/CT scanner: HowAboutWe scanner, [id number]. PET/CT acquisition: Fpyesr-xs-hax-thighs. Standardized uptake value (SUV): Corrected for body weight only. CT: Low-dose, shv-eayiub-uvqy, without intravenous contrast. TOTAL DLP (Dose Length [...] contrast: None. Positioning: Arms raised. PET/CT scanner: HowAboutWe scanner, [id number]. PET/CT acquisition: Sxaoca-mr-nel-thighs. Standardized uptake value (SUV): Corrected for body weight only. CT: Low-dose, wma-knsmdv-nkmy, without intravenous contrast. TOTAL DLP (Dose Length [...] MD on 02/05/2025 4:17 PM us Miriam Wellingotn MD IMG NM PROCEDURES Final R esult documented in this encounter Visit Diagnoses Diagnosis Malignant neoplasm of lower lobe of right lung documented in this encounter Administered Medications Inactive Administered Medications - up to 3 most recent administrations Medication Order MAR Action Action Date Dose Rate Site Fludeoxyglucose F 18 (FDG 18) radio-isotope injection 12 millicurie 12 millicurie, Intravenous, Once, 1 dose, On Mon02/05/25 at 1100, Routine, Imaging NM Protocol Orders Given 02/05/2025 9:58 AM EDT 13.96 millicuries Left Antecubital documented in this encounter Additional Health Concerns Assessment Noted Time A fall risk assessment has been complete d for the patient 01/08/2025 12:59 PM EDT A Body Mass Index follow-up plan has been documented for the patient 01/10/2025 3:26 PM EDT documented as of this encounter Care Teams Molder Feeder Relationship Specialty Start Date End Date Ortega Roach MD [address] [place] [address] PCP - General 06/09/22 03/30/25 Ortega Vo MD [address] [facility] [address] [id number] Referring Physician 01/08/25 documented as of this encounter
--- OUTSIDE RECORDS SUMMARY | 2025-02-05 12:00 | XMS_ITS | Encounter Summary ---
Author Organization [facility] Address [address] [id number] Care Team Providers Care Avp Name Role Phone Ortega Roach MD Primary Care Provider [phone] Ortega Vo MD Unavailable [phone] Reason for Visit * Reason Comments Follow-up Encounter Details Date Type Department Care Team ([facility] Contact Info) Description 02/05/2025 1:00 PM EDT Office Visit [facility] Head[facility] Ne[facility] Respiratory [address] [place] [address] Radha [place], MIO [address] [place] [address] Malignant neoplasm of lower lobe of right lung (Primary Dx) Social History Tobacco Use Types Packs/Day Years Used Date Smoking Tobacco: Former Cigarettes 1 49 0 06/08/1973 - 06/08/2022 Passive Smoke Exposure: Never Smokeless Tobacco: Never Tobacco Cessation:Counseling Given: No Alcohol Use Standard Drinks/Week Comments Never 0 [...] drink first t christin in the morning (EYE-ENGRAVER SEALS) to steady your nerves or to get [...] PM EST documented as of this encounter Last Filed Vital Signs Vital Sign Reading Time Taken Comments Blood Pressure 131/69 02/05/2025 11:19 AM EDT Pulse 66 02/05/2025 11:19 AM EDT Temperature - - Respiratory Rate 18 02/05/2025 11:19 AM EDT Oxygen Saturation 96% 02/05/2025 11:19 AM EDT Inhaled Oxygen Concentration - - Weight 54.2 kg (119 lb 7.8 oz) 02/05/2025 11:19 AM EDT Height - - Body Mass Index 23.34 09/27/2023 1:37 PM EDT documented in this encounter Miscellaneous Notes * Progress Notes - Radha [place] PA - 02/05/2025 1:00 PM EDT Images from the original note were not included. [facility] Department of Surgery Division of Thoracic Surgery Outpatient Clinic Note Diagnosis: RLL adenocarcinoma Procedure: Robotic right lower lobectomy, MLND - 08/23/22 Pathology: pT2a, pN0, M0 (1.9 cm moderately differentiated adenocarcinoma, visceral pleural invasion; no LVI, no EMMANUEL); stage 1B Interval History: Filomena Garcia is a 69 y.o. female who underwent robotic right lower lobectomyon 08/23/22 for stage IB (pT2aN0) moderately differentiated adenocarcinoma. She presents today with aPET scan after recent CT Chest 01/08/25 demonstrated interval growth of RUL nodule from 7mm to 13mm in six months. She has not had any changes to her health since last visit. No SOB, cough, hemoptysis. ROS: General: no fevers or chills, no heat or cold intolerance, no subjective weight loss HEENT: no changes in vision, no sore throat, no changes in hearing, no tinnitus, no nasal drainage CV: no chest pain, no palpitations, no lightheadedness, no PND, no orthopnea, no LE swelling, no claudication Pulm: see hpi GI: no nausea, no vomiting, no abdominal pain, no constipation, no diarrhea, no melenal, no hematochezia, no dysphagia, no heartburn Skin: no rash Neuro: no numbness, no tingling, no headache, no difficulties with speech, no gait disturbance Heme: no easy bruising, no bleeding from the gums Endo: No polyuria or polydypsia Psych: no depression or anxiety Physical exam: Visit Vitals BP 131/69 (BP Location: Right arm) Pulse 66 Wt 54.2 kg (119 lb 7.8 oz) SpO2 96% BMI 23.34 kg/m?? General: alert and oriented, appropriate Lungs: CTA B, no wheezes or rhonchi Heart: RRR, no murmurs Abdomen: soft NT/ND, normal bowel sounds Lymph nodes: no palpable supraclavicular or cervical adenopathy Extremities: no peripheral edema Skin: no rash, no cyanosis and warm to touch Psychiatric: oriented to person/place/time and normal mood/affect Imaging: PET Scan: hypermetabolic activity of RUL nodule with no evidence of mediastinal lymphadenopathy or distant metastasis. Official read pending. Additional Testing: none Assessment and Plan: Filomena Garcia is a 69 y.o. female who underwent robotic right lower lobectomy on 08/23/22 for stage IB (pT2aN0) moderately differentiated adenocarcinoma and now a new RUL nodule that has demonstrated interval growth over the last year. PET scan demonstrates hypermetabolic activity of the nodule with no evidence of other activity suggesting metastasis. We discussed proceeding with navigational bronchoscopy for tissue biopsy vs CT guided biopsy, but she would like to think about options. She has an appointment with Dr. Vo on 02/13 and would like to discuss the possibility of having the procedure performed closer to home. We will follow up with Dr. Vo to ensure arrangements have been made for biopsy. If path shows malignancy, would recommend treatment with SBRT. MIO Maciel 02/05/25 12:49 PM documented in this encounter Plan of Treatment Upcoming Encounters Date Type Department Care Team (Late st Contact Info) Description 04/07/2025 1:30 PM EST Appointment [facility] Radiation [id number] [place] [address] Emma Hidalgo MD documented as of this encounter Visit Diagnoses Diagnosis Malignant neoplasm of lower lobe of right lung- Primary documented in this encounter Additional Health Concerns Assessment Noted Time A fall risk assessment has been complete d for the patient 01/08/2025 12:59 PM EDT A Body Mass Index follow-up plan has been documented for the patient 01/10/2025 3:26 PM EDT documented as of this encounter Care Teams Avp Relationship Specialty Start Date End Date Ortega Roach MD [address] [place] [address] PCP - General 06/09/22 03/30/25 Ortega Vo MD [address] [place] [address] Referring Physician 01/08/25 documented as of this encounter
--- OUTSIDE RECORDS SUMMARY | 2025-02-24 10:00 | XMS_ITS | Encounter Summary ---
Author Organization [facility] Address [address] [place] [address] Care Team Providers Care Receiving Distribution Station Operator Name Role Phone Ortega Roach MD Primary Care Provider [phone] Ortega Vo MD Unavailable [phone] Reason for Referral * Imaging (Routine) - Closed Specialty Diagnoses / Procedures Referred By Ramu pa Referred To Contact Radiology Diagnoses Nodule of upper lobe of right lung Procedures CT Guided Biopsy Lung Right Consult to Interventional Radiology Dereje Knight MD [address] [place] [address] Phone: tel: fax: Referral ID Status Reason Start Date Expiration Date Visits Re quested Visits Authorized [id number] Closed 02/24/2025 08/26/2026 1 1 Reason for Visit * Reason Comments New Patient * Consultation (Routine) - Closed Specialty Diagnoses / Procedures Referred By Ramu pa Referred To Contact Hematology and Oncology Diagnoses Solitary pulmonary nodule Kayley Redman MD [address] [place] [address] [place] [address] Phone: tel: fax: [facility] [address] [facility] [place] [address] Phone: tel: fax: Referral ID Status Reason Start Date Expiration Date V isits Requested Visits Authorized [id number] Closed Specialty Services Required 02/20/2025 08/22/2026 1 1 Encounter Details Date Type Department Care Team (Late st Contact Info) Description 02/24/2025 10:00 AM EST Office Visit [facility] [address] , [address] [place] [address] Dereje Knight MD [address] [place] [address] Nodule of upper lobe of right lung (Primary Dx) Social History Tobacco Use Types Packs/Day Years Used Date Smoking Tobacco: Former Cigarettes 1 49 0 06/08/1973 - 06/08/2022 Passive Smoke Exposure: Never Smokeless Tobacco: Never Alcohol Use Standard Drinks/Week Comments Never 0 (1 standard drink = 0.6 oz pur e alcohol) PHQ-2 Answer Date Recorded Patient Health Questionnaire-2 Score 2 07/08/2022 AUDIT-C Answer Date Recorded Q1: How often do you have a drink containing alcohol? Never 02/24/2025 Q2: How many drinks containi ng alcohol do you have on a typical day when you are drinking? Patient does not drink Q3: How often do you have si x or more drinks on one occasion? Never 02/24/2025 CAGE ASSESSMENT Answer Date Recorded Cage unable [...] drink first t christin in the morning ([employer]) to steady your nerves or to get [...] Sign Reading Time Taken Comments Blood Pressure 157/83 02/24/2025 10:11 AM EST Pulse 68 02/24/2025 10:06 AM EST Temperature - - Respiratory Rate 14 02/24/2025 10:0 6 AM EST Oxygen Saturation 94% 02/24/2025 10: 06 AM EST Inhaled Oxygen Concentration - - Weight 53.4 kg (117 lb 11.6 oz) 025 10:06 AM EST Height 152.4 cm (5') 02/24/2025 10:06 AM EST Body Mass Index 22.99 02/24/2025 10:06 AM EST documented in this encounter Functional Status * AUDIT-C Score Answer Date of Assessment Author 0 02/24/2025 10:04 AM Angelita Deleon * Question Answer Date of Assessment Author Q1: How often do you have a drink containing alcohol? Never 02/24/2025 10:04 AM Angelita Deleon Q2: How many drinks containing alcohol do you have on a typical day when you are drinking? Patient does not drink 02/24/2025 10:04 AM Angelita Deleon Q3: How often do you have six or more drinks on one occasion? Never 02/24/2025 10:04 AM Angelita Deleon * Calculated C-SSRS Risk Score (Lifetime/Recent) Answer Date of Assessment Author No Risk Indicated 02/24/2025 10:04 AM EST Angelita Arciniega * Question Answer Date of Assessment Author 1. Wish to be (Past 1 Month) No 025 10:04 AM Angelita Deleon 2. Non-Specific Active Suici candy Thoughts (Past 1 Month) No 02/24/2025 10:04 AM Andrea Deleon 6. Suicidal Behavior (Lifetime) No 10:04 AM Angelita Deleon documented as of this encounter Miscellaneous Notes * Patient Instructions - Lea Segura RN - 02/24/2025 10:00 AM EST You will be scheduled for CT guided biopsy through Interventional Radiology. They will call to schedule. * Progress Notes - Chelsie Johns DO - 02/24/2025 10:00 AM EST [facility] Chief Complaint Chief Complaint Patient presents with New Patient History Of Present Illness Filomena Garcia is a 69 y.o. female presenting with lung nodule in the RUL. We are seeing the patient as a new patient, on the request of Kayley Redman MD. 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 Andrade however was nondiagnostic. She unfortunately hadtwo pneumothorax after each biopsy. She underwent robotic RLL lobectomy on 08/23/22. In December, she was found to have a new RUL nodule on CT which had grown from 7mm to 13mm. She was referred to IP f or biopsy of this nodule. Patient states that from a symptom standpoint, she is asymptomatic. She has not had any respiratorysymptoms. She has a history of COPD and is on Trelegy at home, but has not had any exacerbations. Denies weight loss, hemoptysis, night sweats. PET scan was completed and did not show any lymphadenopathy that was active. Patient is a former smoker, quit in 2022 after her diagnosis. Past Medical History She has a past medical history of Arthritis, COPD (chronic obstructive pulmonary disease), Dental disease, Headache, Hypertension, Joint pain, Right lower lobe pulmonary nodule, Scoliosis, and Sinus problem. Surgical History She has a past surgical history that includes Tonsillectomy; Appendectomy; Hysterectomy; Cholecystectomy; and biopsy, thyroid. Family History Family History[1] Social History She reports that she quit smoking about 2 years ago. Her smoking use included cigarettes. She started smoking about 51 years ago. She has a 49 pack-year smoking history. She has never been exposed totobacco smoke. She has never used smokeless tobacco. She reports that she does not drink alcohol and does not use drugs. Review of Systems: Complete 14 point review of systems is negative except for positives documented in HPI Allergies Atorvastatin Home Medications Prior to Admission medications Medication Sig Start Date End Date Taking? Authorizing Provider albuterol 108 (90 Base) MCG/ACT inhaler 2 puffs 4 (four) times a day if needed. Patient only uses as needed . 06/02/22 Yes Provider, Historical HYDROcodone-acetaminophen ([place]) 10-325 MG tablet 3 (three) times a day if needed for severe pain.Yes Provider, Historical lisinopril-hydroCHLOROthiazide 20-12.5 MG tablet Take 1 tablet by mouth 1 (one) time each day. 12/04/23 Yes Provider, Historical MELATONIN PO Take by mouth. Yes Provider, Historical ramelteon (Rozerem) 8 MG tablet 01/16/25 Yes Provider, Historical Trelegy Ellipta 100-62.5-25 MCG/ACT aerosol powder INHALE 1 PUFF ONCE DAILY 06/02/22 Yes Provider, Historical Medications Current Scheduled Medications[2] Current Continuous Medications[3] Current PRN Medications[4] Physical Exam GENERAL: No acute distress EYES: anicteric sclerae, moist conjunctivae; no lid-lag; PERRLA HENT: Atraumatic; oropharynx clear with moist mucous membranes and no mucosal ulcerations; normal hard and soft palate NECK: Trachea midline; Neck is supple, no thyromegaly or lymphadenopathy . RESP: Airway patent, good air movement, respirations non labored. Breath sounds clear to auscultation. No wheezing. CARD: RRR, without murmur, rubs, or gallop Extremities: No edema, cyanosis or clubbing. Pulses palpable +2. GI: No organomegaly or masses. Abdomen is soft, nontender and nondistended. BS present x 4 quadrants SKIN: Normal temperature, turgor and texture; no rash, ulcers or subcutaneous nodules NEURO: Motor power grossly intact bilaterally, CN II-XII grossly intact. Sensation intact. Speech fluid and fluent. Thought process coherent. PSYCH : Alert and oriented x 3, Mood stable. Last Recorded Vitals Blood pressure (!) 157/83, pulse 68, resp. rate 14, height 1.524 m (5'), weight 53.4 kg (117 lb 11.6 oz), SpO2 94%. Results CBC WBC ?? Hb ?? Plt ?? Hct ?? ANC ?? INR ??, PTT ??, Anti-Xa ?? BMP Na ?? Cl ?? BUN ?? Glu ?? K ?? Co2 ?? Cr ?? Ca ?? iCa ?? Mg ??, Phos ?? Lactate ?? LFT AST ?? AlkPhos ?? T Prot ?? ALK ?? Bili ?? Alb ?? D.Bili ?? Radiology Assessment and Plan Filomena Garcia is a 69 y.o. female with a prior history of stage IB adenocarcinoma of the lung s/p robotic RLL lobectomy presenting with new 13 mm spiculated RUL nodule. May risk calculator: 88% risk of malignancy. Discussed with patient, no clear airway to target on CT scans. Patient also with two reported pneumothorax after prior bronchoscopy as well as CT guided biopsy. After risk/benefit discussion, she decided to proceed with CT guided biopsy. Will plan to follow up in office after to discuss results. Chelsie Johns DO, PGY6 Pulmonary & Critical Care Medicine Discussed with Dr. Knight. [1] Family History Problem Relation Name Age of Onset No Known Problems Mother No Known Problems Father Diabetes Sister Breast cancer Sister Cancer Brother Heart disease Other Anesthesia problems Neg Hx Malig Hyperthermia Neg Hx [2] [3] [4] PRN medications: melatonin Cosigned by Dereje Knight MD at 02/25/2025 9:50 PM EST Associated attestation - Dereje Knight MD - 02/25/2025 9:50 PM EST I saw and evaluated the patient with the resident/fellow. I discussed the case with the resident/fellow and agree with the findings and plan as documented. documented in this encounter Plan of Treatment Upcoming Encounters Date Type Department Care Team (Late st Contact Info) Description 04/07/2025 1:30 PM EST Appointment [facility] [address] [facility] [address] Emma Hidalgo MD documented as of this encounter Results * CT Guided Biopsy Lung Right (03/27/2025 10:15 AM EST) Anatomical Region Laterality Modality Lung Right Computed Tomogra phy Impressions 03/27/2025 4:[address] guided biopsy of right upper lobe pulmonary nodule. CRITICAL RESULT: No. COMMUNICATION: Per this written report. By electronically signing this report, I, the attending physician, attest that I was present for the entire procedure(s) and agree with the final edited report. Drafted by Ousmane Luis MD on 03/27/2025 12:04 PM Final report signed by Parth Cortez MD on 03/27/2025 4:26 PM Narrative 03/27/2025 4:26 PM EST CLINICAL INDICATION: 69 years old woman with history of adenocarcinoma of the right lower lobe s/p lobectomy now with 1.5 cm spiculated nodule of the right upper lobe who presents for biopsy to further evaluate. Of note, she has extensive emphysema and history of prior pneumothorax requiring chest tube. TECHNIQUE: Contracting Support Specialist: Ousmane Luis MD Supervising Physician: Parth Cortez MD Rad Dose: 490 mGy-cm DLP Medications: IV conscious sedation with continuous physiologic monitoring provided by a qualified healthcare professional using Versed 1 mg IV and Fentanyl 25 mcg IV. 1% Lidocaine SQ. Antibiotics: None Duration of Conscious Sedation: Time out: 955 close out: 1016 Procedure: After discussion of risks and benefits, informed written consent was obtained. Appropriate time out was performed to confirm patient identity and planned procedure and side. The patient was placed prone on the CT table and initial scanning carried out. The skin overlying the planned tract was prepped and draped in usual sterile fashion, and local anesthetic administered. The lesion was accessed under CT guidance with a 19G needle and position confirmed. Via the needle 6 cores were taken with an 20G biopsy device. Once sampling was felt sufficient the needle was removed while sealing the tract with sterile saline. Post scanning revealed no pneumothorax or other complication. A sterile dressing was applied to the puncture site. The patient tolerated the procedure well, and was transferred to the recovery area in good condition. Cytopathology, was present for the procedure and confirmed adequacy of the sampling for their purposes Total DLP (Dose-Length Product): 489.98 mGy.cm. Please note: The reported value represents the total of one or more individual components during the CT acquisition on this date and at this time, and as such, the same value may appear in more than one CT report depending on the interpreting/reporting physicians. COMPARISON: PET/CT 02/05/2025. CT chest without contrast 01/08/2025. FINDINGS: Limited noncontrast CT of the chest demonstrates lobulated right upper lobe pulmonary nodule in a background of severe emphysematous change which measures approximately 14 x 11 mm. Intraprocedural images demonstrate the needle passing through the targeted lesion Postprocedure images demonstrate no acute complication. COMPLICATION: No acute complication Procedure Note Parth Cortez MD - 03/27/2025 CLINICAL INDICATION: 69 years old woman with history of adenocarcinoma of the right lower lobes/p lobectomy now with 1.5 cm spiculated nodule of the right upper lobewho presents for biopsy to further evaluate. Of note, she has extensiveemphysema and history of prior pneumothorax requiring chest tube. TECHNIQUE: Contracting Support Specialist: Ousmane Luis MD Supervising Physician: Parth Cortez MD Rad Dose: 490 mGy-cm DLP Medications: IV conscious sedation with continuous physiologic monitoringprovided by a qualified healthcare professional using Versed 1 mg IV andFentanyl 25 mcg IV. 1% Lidocaine SQ. Antibiotics: None Duration of Conscious Sedation: Time out: 0956 close out: 1016 Procedure: After discussion of risks and benefits, informed written consent wasobtained. Appropriate time out was performed to confirm patient identityand planned procedure and side. The patient was placed prone on the CT table and initial scanning carriedout. The skin overlying the planned tract was prepped and draped in usualsterile fashion, and local anesthetic administered. The lesion wasaccessed under CT guidance with a 19G needle and position confirmed. Viathe needle 6 cores were taken with an 20G biopsy device. Once sampling wasfelt sufficient the needle was removed while sealing the tract withsterile saline. Post scanning revealed no pneumothorax or othercomplication. A sterile dressing was applied to the puncture site. Thepatient tolerated the procedure well, and was transferred to [facility] in good condition. Cytopathology, was present for the procedure and confirmed adequacy of thesampling for their purposes Total DLP (Dose-Length Product): 489.98 mGy.cm. Please note: The reportedvalue represents the total of one or more individual components during theCT acquisition on this date and at this time, and as such, the same valuemay appear in more than one CT report depending on theinterpreting/reporting physicians. COMPARISON: PET/CT 02/05/2025. CT chest without contrast 01/08/2025. FINDINGS: Limited noncontrast CT of the chest demonstrates lobulated right upperlobe pulmonary nodule in a background of severe emphysematous change whichmeasures approximately 14 x 11 mm. Intraprocedural images demonstrate theneedle passing through the targeted lesion Postprocedure images demonstrate no acute complication. COMPLICATION: No acute complication IMPRESSION: CT guided biopsy of right upper lobe pulmonary nodule. CRITICAL RESULT: No. COMMUNICATION: Per this written report. By electronically signing this report, I, the attending physician, attestthat I was present for the entire procedure(s) and agree with the finaledited report. Drafted by Ousmane Luis MD on 03/27/2025 12:04 PM Final report signed by Parth Cortez MD on 03/27/2025 4:26 PM Dereje Knight MD IMG CT PROCEDURES Final Resul t documented in this encounter Visit Diagnoses Diagnosis Nodule of upper lobe of right lung- Primary Nodule of upper lobe of right lung documented in this encounter Additional Health Concerns Assessment Noted Time A fall risk assessment has been complete d for the patient 02/24/2025 10:05 AM EST A Body Mass Index follow-up plan has been documented for the patient 01/10/2025 3:26 PM EDT documented as of this encounter Care Teams Receiving Distribution Station Operator Relationship Specialty Start Date End Date Ortega Roach MD [address] [place] [id number] PCP - General 06/09/22 03/30/25 Ortega Vo MD [address] [facility] [address] [place] [address] Referring Physician 01/08/25 documented as of this encounter
--- OUTSIDE RECORDS SUMMARY | 2025-03-12 08:00 | XMS_ITS | Encounter Summary ---
Author Organization [facility] Address [address] [place] [address] Care Team Providers Care Fur Dresser Name Role Phone Ortega Roach MD Primary Care Provider [phone] Ortega Vo MD Unavailable [phone] Reason for Visit * Reason Comments Consult Encounter Details Date Type Department Care Team (Latest Contact Info) Description 03/12/2025 8:00 AM EST [facility] Visit [facility] Radiology [address] [facility] [address] [place] [address] Anjana Pritchett, [employer], DNP [address] [place] [address] Primary adenocarcinoma of lower lobe of right lung (Primary Dx); Nodule of upper lobe of right lung Social History Tobacco Use Types Packs/Day Years Used Date Smoking Tobacco: Former Cigarettes 1 49 0 06/08/1973 - 06/08/2022 Passive Smoke Exposure: Never Smokeless Tobacco: Never Alcohol Use Standard Drinks/Week Comments Never 0 (1 standard drink = 0.6 oz pur e alcohol) PHQ-2 Answer Date Recorded Patient Health Questionnaire-2 Score 0 03/12/2025 AUDIT-C Answer Date Recorded Q1: How often [...] drink first t christin in the morning ([employer]) to steady your nerves or to get [...] Sign Reading Time Taken Comments Blood Pressure 151/82 03/12/2025 8:21 AM EST Provider aware Pulse 64 03/12/2025 8:15 AM EST Temperature 36.6 C (97.8 F) 03/12/2025 8:15 AM EST Respiratory Rate 16 03/12/2025 8:15 AM EST Oxygen Saturation 94% 03/12/2025 8:1 5 AM EST Inhaled Oxygen Concentration - - Weight 53.9 kg (118 lb 13.3 oz) 03/12/2025 8:15 AM EST Height 152.4 cm (5') 03/12/2025 8:15 AM EST Body Mass Index 23.21 03/12/2025 8:15 AM EST documented in this encounter Functional Status * Over the past 2 weeks, how often have you been bothered by any of the following problems? Question Answer Date of Assessment Author Little interest or pleasure in doing things Not at all 03/12/2025 8:18 AM EST Taty Franco RN Feeling down, depressed, or hopeless Not at all 03/12/2025 8:18 AM EST Taty Franco RN Patient Health Questionnaire-2 Score 0 03/12/2025 8:18 AM EST Yefri Franco i, RN documented as of this encounter Miscellaneous Notes * H&P - Anjana Pritchett, [employer], DNP - 03/12/2025 8:00 AM EST Images from the original note were not included. Filomena Garcia presents today for consultation as requested by Dr. Dereje Knight, regarding assessment of right lung nodule. Subjective History of Present Illness: Filomena Garcia is a 69 y.o. year old female who presents in consultation for right upper lobe lung biopsy. She has a history of tobacco use disorder (smoked 49 years, quit in 2022), adenocarcinomaof the lung diagnosed via CT guided biopsy on 07/12/22 and also non-diagnostic robotic bronchoscopy.She had pneumothorax after each biopsy. In August 2022, she underwent robotic right lower lobe lobectomy. In December 2024, she was noted to have new RUL long nodule on CT. PET/CT on 02/05/25 showed hypermetabolic RUL spiculated lung nodule highly suspicious for malignancy. She was referred to Interventional Pulmonary for biopsy. Due to location of nodule, VIR was consulted for CT guided percutaneous biopsy. Denies fever, chills, nausea, vomiting, abdominal pain, SOA or chest pain. States she is able to lay flat and denies prior issues with sedation or contrast. Allergies: Atorvastatin Medications: Current Medications[1] Past Surgical History: Filomena has a past surgical history that includes Tonsillectomy; Appendectomy; Hysterectomy; Cholecystectomy; and biopsy, thyroid. Past Medical History: She has a past medical history of Arthritis, COPD (chronic obstructive pulmonary disease), Dental disease, Headache, Hypertension, Joint pain, Right lower lobe pulmonary nodule, Scoliosis, and Sinus problem. Past Family History: Herfamily history includes Breast cancer in her sister; Cancer in her brother; Diabetes in her sister; Heart disease in an other family member; No Known Problems in her father and mother. Past Social History: She reports that she quit smoking about 2 years ago. Her smoking use included cigarettes. She started smoking about 51 years ago. She has a 49 pack-year smoking history. She has never been exposed totobacco smoke. She has never used smokeless tobacco. She reports that she does not drink alcohol and does not use drugs. Review of Systems: 14 point ROS negative except for above. Objective Physical Exam: 03/12/2025 8:15 AM 8:21 AM BP 163/76 151/82 Heart Rate 64 -- Temp 36.6 ??C (97.8 ??F) -- Temp Source Temporal -- Weight 53.9 kg (118 lb 13.3 oz) -- Height 1.524 m (5') -- Resp 16 -- SpO2 94 % -- Physical Exam Vitals reviewed. Constitutional: General: She is not in acute distress. Appearance: Normal appearance. She is not ill-appearing. HENT: Head: Normocephalic. Nose: Nose normal. Eyes: General: No scleral icterus. Pulmonary: Effort: Pulmonary effort is normal. No respiratory distress. Abdominal: General: Abdomen is flat. There is no distension. Neurological: General: No focal deficit present. Mental Status: She is alert and oriented to person, place, and time. Psychiatric: Mood and Affect: Mood normal. Behavior: Behavior normal. Thought Content: Thought content normal. Judgment: Judgment normal. Imaging: PET/CT FDG Skull Base To Mid Thigh Narrative: CLINICAL INDICATION: Subsequent treatment strategy for recently [...] contrast: None. Positioning: Arms raised. PET/CT scanner: Fluxome scanner, [id number]. PET/CT acquisition: [id number]. Standardized uptake value (SUV): Corrected for body weight only. CT: Low-dose, [id number], without intravenous contrast. TOTAL DLP (Dose Length [...] maxillary sinus and ethmoid air-cell mucosal thickening. Intenselyhypermetabolic dense material within the left maxillary sinus [...] avid bilateral buttocks calcifications, likely injection granulomas. Impression: 1. The questionable growing spiculated peripheral right upper lobe nodule shows intenseFDG uptake and highly suspicious for malignancy. Tissue [...] Vanessa Hoang MD on 02/05/2025 4:17 PM Labs: Labs in chart were reviewed. Lab Results Component Value Date WBC 19.18 (H) 08/27/2022 HGB 9.0 (L) 08/27/2022 HCT 26.3 (L) 08/27/2022 PLT 229 08/27/2022 Lab Results Component Value Date NA 140 08/27/2022 K 3.9 08/27/2022 CL 107 08/27/2022 CO2 27 08/27/2022 BUN 12 08/27/2022 CREATININE 0.56 (L) 08/27/2022 GLUCOSE 94 08/27/2022 Lab Results Component Value Date CALCIUM 7.7 (L) 08/27/2022 MG 2.0 08/27/2022 PHOS 1.7 (L) 08/27/2022 Lab Results Component Value Date AST 25 08/26/2022 ALT 10 08/26/2022 ALKPHOS 43 (L) 08/26/2022 Lab Results Component Value Date APTT 25 08/24/2022 INR 1.1 08/24/2022 Assessment/Plan Medical Decision Making/Plan: Assessment & Plan Primary adenocarcinoma of lower lobe of right lung Nodule of upper lobe of right lung Adenocarcinoma of the lung Right upper lobe lung nodule Hx iatrogenic pneumothorax Emphysema - Diagnosed via CT guided biopsy on 07/12/22 and also non-diagnostic robotic bronchoscopy - She had pneumothorax requiring chest tube placement after each biopsy - In August 2022, she underwent robotic right lower lobe lobectomy - In December 2024, she was noted to have new RUL long nodule on CT - Personally reviewed PET/CT on 02/05/25 showed hypermetabolic RUL spiculated lung nodule highly suspicious for malignancy - She was referred to Interventional Pulmonary for biopsy - Due to location of nodule, VIR was consulted for CT guided percutaneous biopsy PLAN: - Scheduled for CT guided right lung biopsy on 03/27/25 with conscious sedation - Discussed procedure in detail with patient and , answered all questions - Discussed increased risk for pneumothorax given history of iatrogenic pneumothorax with biopsy inthe past and emphysema - Consent obtained - NPO at midnight prior to procedure - Anticoagulation: NA - Diabetes medications: NA - Labs ordered: CBC, CMP, INR I spent 46 minutes on this encounter; including preparing to see the patient, which involved review/interpretation of diagnostics and reports, obtaining and/or reviewing separately obtained history, performing appropriate physical exam, communicating findings, reviewing labs/imaging, counseling/educating the patient, discussing potential complications (bleeding, infection, damage to surrounding structures), documentation in EMR and formulating subsequent treatment plan. This note was generated, at least in part, by Voice Recognition Technology in combination with keyboard input. It has been reviewed by the undersigned; however, may still contain unintended errors. Thank you for allowing me to participate in the care of Filomena Garcia. Anjana Pritchett APRN, DNP Vascular & Interventional Radiology [1] Current Outpatient Medications: albuterol 108 (90 Base) MCG/ACT inhaler, 2 puffs 4 (four) times a day if needed. Patient only uses as needed ., Disp: , Rfl: HYDROcodone-acetaminophen ([place]) 10-325 MG tablet, 3 (three) times a day if needed for severe pain., Disp: , Rfl: lisinopril-hydroCHLOROthiazide 20-12.5 MG tablet, Take 1 tablet by mouth 1 (one) time each day., Disp: , Rfl: ramelteon ([place]) 8 MG tablet, , Disp: , Rfl: Trelegy Ellipta 100-62.5-25 MCG/ACT aerosol powder , INHALE 1 PUFF ONCE DAILY, Disp: , Rfl: MELATONIN PO, Take by mouth. (Patient not taking: Reported on 03/12/2025), Disp: , Rfl: Current Facility-Administered Medications: melatonin tablet 6 mg, 6 mg, Oral, Nightly PRN, Ankush Pulido MD documented in this encounter Plan of Treatment Upcoming Encounters Date Type Department Care Team (Late st Contact Info) Description 04/07/2025 1:30 PM EST Appointment [facility] [id number] [place] [address] Emma Hidalgo MD documented as of this encounter Visit Diagnoses Diagnosis Primary adenocarcinoma of lower lobe of right lung- Primary Nodule of upper lobe of right lung documented in this encounter Additional Health Concerns Assessment Noted Time A fall risk assessment has been complete d for the patient 03/12/2025 8:18 AM EST A Body Mass Index follow-up plan has been documented for the patient 03/12/2025 8:44 AM EST documented as of this encounter Care Teams Fur Dresser Relationship Specialty Start Date End Date Ortega Roach MD [address] [place] [id number] PCP - General 06/09/22 03/30/25 Ortega Vo MD [address] [place] [address] Referring Physician 01/08/25 documented as of this encounter
--- OUTSIDE RECORDS SUMMARY | 2025-03-27 08:20 | XMS_ITS | Encounter Summary ---
Author Organization [facility] Address [address] [place] [address] Care Team Providers Care Lead Cargo Mover Name Role Phone Ortega Roach MD Primary Care Provider [phone] Ortega Vo MD Unavailable [phone] Reason for Referral * Imaging (Routine) - Closed Specialty Diagnoses / Procedures Referred By Ramu pa Referred To Contact Radiology Diagnoses Nodule of upper lobe of right lung Procedures CT Guided Biopsy Lung Right Consult to Interventional Radiology Dereje Knight MD [address] [place] [phone] Phone: tel: fax: Referral ID Status Reason Start Date Expiration Date Visits Re quested Visits Authorized [id number] Closed 02/24/2025 08/26/2026 1 1 Reason for Visit * Auth/Cert (Routine) Specialty Diagnoses / Procedures Referred By Ramu pa Referred To Contact Diagnoses Pneumothorax Parth Cortez MD [address] [place] [address] Phone: tel: fax: [facility] A Inpatient [address] [place] [phone] Referral ID Status Reason Start Date Expiration Date Visits Re quested Visits Authorized [id number] 1 1 Encounter Details Date Type Department Care Team (Latest Contact Info) Description 03/27/2025 8:20 AM EST - 03/27/2025 10:43 AM EST Hospital Encounter [facility] Interventional Radiology [address] [place] [phone] Bang Stone, YOUNG None None Sarina Brumfield, YOUNG None None Nodule of upper lobe of right lung Discharge Disposition: Home [...] drink 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 t 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) to steady your nerves or to get [...] Sign Reading Time Taken Comments Blood Pressure 140/58 03/27/2025 10:30 AM EST Pulse 62 03/27/2025 10:30 AM EST Temperature 36.4 C (97.6 F) 03/27/2025 8:30 AM EST Respiratory Rate 12 03/27/2025 10:3 0 AM EST Oxygen Saturation 98% 03/27/2025 10: 30 AM EST Inhaled Oxygen Concentration - - Weight 53.4 kg (117 lb 11.6 oz) 03/27/2025 8:30 AM EST Height 152.4 cm (5') 03/27/2025 8:30 AM EST Body Mass Index 22.99 03/27/2025 8:30 AM EST documented in this encounter Functional Status * Calculated C-SSRS Risk Score (Lifetime/Recent) Answer Date of Assessment Author No Risk Indicated 03/27/2025 8:35 AM EST Chris Brumfield RN * Question Answer Date of Assessment Author 1. Wish to be (Past 1 Month) No 025 8:35 AM EST Sarina Brumfield RN 2. Non-Specific Active Suici candy Thoughts (Past 1 Month) No 03/27/2025 8:35 AM EST Sarina Brumfield RN 6. Suicidal Behavior (Lifetime) No 8:35 AM EST Sarina Brumfield RN documented as of this encounter Medications at Time of Discharge albuterol 108 (90 Base) MCG/ACT inhaler 2 puffs 4 times a day as needed. Patient only uses as needed . 06/02/2022 HYDROcodone-aceta minophen ([place]) 10-325 MG tablet 1 tablet 3 times a day as needed for severe pain. lisinopril-hydroC HLOROthiazide 20-12.5 MG tablet Take 1 tablet by mouth daily. 12/04/2023 ramelteon (Rozerem) 8 MG tablet Take 1 tablet by mouth nightly. 01/16/2025 Trelegy Ellipta 100-62.5-25 MCG/ACT aerosol powder Inhale 1 puff daily. 06/02/2022 MELATONIN PO Take by mouth. 03/29/2025 documented as of this encounter Miscellaneous Notes * Post-Procedure Note - Ousmane Luis MD - 03/27/2025 9:30 AM EST Vascular and Interventional Radiology Brief Postprocedure Note Attending: Dr Cortez Resolution Agent: Dr Luis Pre-operative Diagnosis: right apical nodule Post-operative Diagnosis: same Type of Anesthesia: Conscious Sedation Description of Findings: 1 cm right apical nodule Technical/Surgical Procedures Used: CT guided biopsy Specimen Obtained: Yes, 6 x 20 G x 1 cm core needle biopsy Complications: None Estimated Blood Loss: none Procedure Events Event Event Time Sedation Start 03/27/2025 9:56 AM Sedation Stop 03/27/2025 10:16 AM See detailed result report with images in PACS. The patient tolerated the procedure well without incident or complication and is in stable condition. * Pre-Procedure Note - Ousmane Luis MD - 03/27/2025 9:30 AM EST Images from the original note were not included. INTERVENTIONAL RADIOLOGY SEDATION PRE-PROCEDURAL ASSESSMENT AND PLAN OF CARE Indication for procedure: There were no encounter diagnoses. Planned Procedure: right lung biopsy Relevant past medical history: right lung adenoK Previous problems with surgery, anesthesia or sedation: No Previous family history or problems with anesthesia or sedation: No History of tobacco use, alcohol use, or substance abuse: Tobacco Use History[1], Social History Substance and Sexual Activity Alcohol Use Never , Social History Substance and Sexual Activity Drug Use Never Height and Weight: There were no vitals taken for this visit. Allergies to medication: Atorvastatin Current medications: Current Medications[2] Relevant Labs: Lab Results Component Value Date CREATININE 0.80 03/12/2025 EGFR 78.9 03/12/2025 INR 1.0 03/12/2025 Planned Sedation/Anesthesia: Moderate Airway assessment: normal Mallampati Score: II (hard and soft palate, upper portion of tonsils anduvula visible) ASA: ASA 2 - Patient with mild systemic disease with no functional limitations Directed physical examination: There were no vitals filed for this visit. Constitutional: General: She is not in acute [...] Content: Thought content normal. Judgment: Judgment normal. Benefits, risks and alternatives of procedure and planned sedation have been discussed with the patient and/or their insurance claims representative. All questions answered and they agree to proceed. [1] Social History Tobacco Use Smoking Status Former Current packs/day: 0.00 Average packs/day: 1 pack/day for 49.0 years (49.0 ttl pk-yrs) Types: Cigarettes Start date: 06/08/1973 Quit date: 06/08/2022 Years since quittin.8 Passive exposure: Never Smokeless Tobacco Never [2] Current Outpatient Medications Medication Sig Dispense Refill albuterol 108 (90 Base) MCG/ACT inhaler 2 puffs 4 (four) times a day if needed. Patient only uses as needed . HYDROcodone-acetaminophen ([place]) 10-325 MG tablet 3 (three) times a day if needed for severe pain. lisinopril-hydroCHLOROthiazide 20-12.5 MG tablet Take 1 tablet by mouth 1 (one) time each day. MELATONIN PO Take by mouth. (Patient not taking: Reported on 03/12/2025) ramelteon (Rozerem) 8 MG tablet Trelegy Ellipta 100-62.5-25 MCG/ACT aerosol powder INHALE 1 PUFF ONCE DAILY Current Facility-Administered Medications Medication Dose Route Frequency Provider Last Rate Last Admin melatonin tablet 6 mg 6 mg Oral Nightly PRN Ankush Pulido MD * Interval H&P Note - Ousmane Luis MD - 03/27/2025 9:30 AM EST Patient presented for her scheduled procedure, no change to the H and Ps Source Note - Anjana Pritchett APRN, JOSI - 03/12/2025 8:00 AM EST Images from [...] contrast: None. Positioning: Arms raised. PET/CT scanner: [employer] scanner, [id number]. PET/CT acquisition: [id number]. Standardized uptake value (SUV): Corrected for body weight only. CT: Low-dose, [id number]-[id number], without intravenous contrast. TOTAL DLP (Dose Length [...] as needed ., Disp: , Rfl: HYDROcodone-acetaminophen ([place]) 10-325 MG tablet, 3 (three) times a [...] tablet 6 mg, 6 mg, Oral, Nightly Ashok AMATO Driss, MD documented in this encounter Plan of Treatment Upcoming Encounters Date Type Department Care Team (Late st Contact Info) Description 04/07/2025 1:30 PM EST Appointment [facility] Radiation [address] [facility] [id number] [address] Emma Hidalgo MD Scheduled Orders Name Type Priority Associated Diagnoses Orde r Schedule CT Guided Chest Tube Right Imaging STAT Once for 1 Occur rences starting 03/27/2025 until 03/27/2025 documented as of this encounter Procedures Procedure Name Priority Date/Time Associated Diagnosis Comments CT GUIDED CHEST TUBE RIGHT Routine 03/27/2025 1:35 PM EST XR CHEST 1 VIEW Timed 03/27/2025 1:09 PM EST XR CHEST 1 VIEW Routine 03/27/2025 11:[address] GUIDED BIOPSY LUNG RIGHT Routine 03/27/2025 10:15 AM EST Nodule of upper lobe of right lung FINE NEEDLE ASPIRATION - CORE BIOPSY Routine 03/27/2025 10:04 AM EST documented in this encounter Results * CT Guided Chest Tube Right (03/27/2025 1:35 PM EST) Anatomical Region Laterality Modality Chest Right Computed Tomogra phy Impressions 03/27/2025 4:[address]-guided right 8 [place] chest tube placement for large pneumothorax. Moderate pneumomediastinum noted. PLAN 1. Chest tube to suction overnight 2. Admit for extended recovery 3. CXR in am followed by tube advancement and possible removal CRITICAL RESULT: No. COMMUNICATION: Per this written report. Drafted by Parth Cortez MD on 03/27/2025 4:27 PM Final report signed by Parth Cortez MD on 03/27/2025 4:34 PM Narrative 03/27/2025 4:34 PM EST CLINICAL INDICATION: 69-year-old woman with enlarging right pneumothorax which developed in the recovery phase post lung biopsy who presents for chest tube placement. TECHNIQUE: Cleaner Window: Parth Cortez MD Secondary Geodetic Computator: None Rad Dose: 490 mGy-cm DLP Medications: Continuous physiologic monitoring provided by a qualified healthcare professional. 1% Lidocaine SQ. Antibiotics: None Case Time out: 1321 close out: 1335 Procedure: After discussion of risks and benefits, informed written consent was obtained. Appropriate time out was done to confirm patient identity and planned procedure . Strict hand hygiene protocol was observed. All personnel in the room were attired in surgical hat and mask. The operators were in surgical hat, mask, sterile gloves, and sterile gowns. The patient was placed supine on the CT table and initial scanning carried out. The skin overlying the planned tract was prepped and draped in usual sterile fashion, and local anesthetic administered. The pleural space was accessed under CT guidance with a 18G needle and confirmed with air return. Via the needle a 0.035 short Amplatz wire was placed. Over this wire, an 8 Fr pigtail drain was placed, and the wire removed. The drain was connected to Pleur-evac drainage connected to suction. Follow-up CT demonstrated good position of the drain with resolution of the pneumothorax. The drain was secured to the skin with 2-0 Silk and an occlusive dressing. Patient tolerated the procedure well, and was transferred back to recovery in good condition. COMPARISON: Chest x-ray 03/27/2025 CT right lung biopsy 03/27/2025. FINDINGS: Large right pneumothorax with moderate pneumomediastinum and slight right to left mediastinal shift. Post chest tube placement with reexpansion of the right lung. Moderate pneumomediastinum persists. COMPLICATION: No. Procedure Note Parth Cortez MD - 03/27/2025 CLINICAL INDICATION: 69-year-old woman with enlarging right pneumothorax which developed in therecovery phase post lung biopsy who presents for chest tube placement. TECHNIQUE: Cleaner Window: Parth Cortez MD Secondary Geodetic Computator: None Rad Dose: 490 mGy-cm DLP Medications: Continuous physiologic monitoring provided by a qualifiedhealthcare professional. 1% Lidocaine SQ. Antibiotics: None Case Time out: 1321 close out: 1335 Procedure: After discussion of risks and benefits, informed written consent wasobtained. Appropriate time out was done to confirm patient identity andplanned procedure . Strict hand hygiene protocol was observed. All personnel in the room wereattired in surgical hat and mask. The operators were in surgical hat,mask, sterile gloves, and sterile gowns. The patient was placed supine on the CT table and initial scanning carriedout. The skin overlying the planned tract was prepped and draped in usualsterile fashion, and local anesthetic administered. The pleural space wasaccessed under CT guidance with a 18G needle and confirmed with airreturn. Via the needle a 0.035 short Amplatz wire was placed. Over thiswire, an 8 Fr pigtail drain was placed, and the wire removed. The drainwas connected to Pleur-evac drainage connected to suction. Follow-up CTdemonstrated good position of the drain with resolution of thepneumothorax. The drain was secured to the skin with 2-0 Silk and anocclusive dressing. Patient tolerated the procedure well, and wastransferred back to recovery in good condition. COMPARISON: Chest x-ray 03/27/2025 CT right lung biopsy 03/27/2025. FINDINGS: Large right pneumothorax with moderate pneumomediastinum and slight rightto left mediastinal shift. Post chest tube placement with reexpansion ofthe right lung. Moderate pneumomediastinum persists. COMPLICATION: No. IMPRESSION: CT-guided right 8 [place] chest tube placement for large pneumothorax. Moderate pneumomediastinum noted. PLAN 1. Chest tube to suction overnight 2. Admit for extended recovery 3. CXR in am followed by tube advancement and possible removal CRITICAL RESULT: No. COMMUNICATION: Per this written report. Drafted by Parth Cortez MD on 03/27/2025 4:27 PM Final report signed by Parth Cortez MD on 03/27/2025 4:34 PM us Parth Cortez MD IMG CT PROCEDURES Final Resul t * XR Chest 1 View (03/27/2025 1:09 PM EST) Anatomical Region Laterality Modality Chest Digital Radiogra phy Impressions 03/27/2025 1:13 PM EST Significantly increased right pneumothorax. CRITICAL RESULT: No. COMMUNICATION: Per this written report. Drafted by Ortega Schulte MD on 03/27/2025 1:10 PM Final report signed by Ortega Schulte MD on 03/27/2025 1:13 PM Narrative 03/27/2025 1:13 PM EST CLINICAL INDICATION: follow up on pneumothorax TECHNIQUE: XR CHEST 1 VIEW COMPARISON: 03/27/2025 1133 hours FINDINGS: Previously noted right pneumothorax has significantly increased in size, and is now moderate to large. Stable ectasia of the aortic arch. No consolidation. No pulmonary edema. Procedure Note Ortega Schulte MD - 03/27/2025 CLINICAL INDICATION: follow up on pneumothorax TECHNIQUE: XR CHEST 1 VIEW COMPARISON: 03/27/2025 1133 hours FINDINGS: Previously noted right pneumothorax has significantly increased in size,and is now moderate to large. Stable ectasia of the aortic arch. Noconsolidation. No pulmonary edema. IMPRESSION: Significantly increased right pneumothorax. CRITICAL RESULT: No. COMMUNICATION: Per this written report. Drafted by Ortega Schulte MD on 03/27/2025 1:10 PM Final report signed by Ortega Schulte MD on 03/27/2025 1:13 PM Parth Cortez MD IMG XR PROCEDURES Final Resul t * XR Chest 1 View (03/27/2025 11:45 AM EST) Anatomical Region Laterality Modality Chest Digital Radiogra phy Impressions 03/27/2025 12:29 PM EST Small right pneumothorax. CRITICAL RESULT: No. COMMUNICATION: Per this written report. Drafted by Ortega Schulte MD on 03/27/2025 12:28 PM Final report signed by Ortega Schulte MD on 03/27/2025 12:29 PM Narrative 03/27/2025 12:29 PM EST CLINICAL INDICATION: post right lung biopsy TECHNIQUE: XR CHEST 1 VIEW COMPARISON: September 14, 2022 FINDINGS: Small right pneumothorax. No consolidation. Basilar atelectasis. Procedure Note Ortega Schulte MD - 03/27/2025 CLINICAL INDICATION: post right lung biopsy TECHNIQUE: XR CHEST 1 VIEW COMPARISON: September 14, 2022 FINDINGS: Small right pneumothorax. No consolidation. Basilar atelectasis. IMPRESSION: Small right pneumothorax. CRITICAL RESULT: No. COMMUNICATION: Per this written report. Drafted by Ortega Schulte MD on 03/27/2025 12:28 PM Final report signed by Ortega Schulte MD on 03/27/2025 12:29 PM us Parth Cortez MD IMG XR PROCEDURES Final Resul t * CT Guided Biopsy Lung Right (03/27/2025 [...] of prior pneumothorax requiring chest tube. TECHNIQUE: Cleaner Window: Ousmane Luis MD Supervising Physician: Parth Cortez [...] of prior pneumothorax requiring chest tube. TECHNIQUE: Cleaner Window: Ousmane Luis MD Supervising Physician: Parth Cortez [...] procedure well, and was transferred to the [facility] in good condition. Cytopathology, was present for [...] with the finaledited report. Drafted by Ousmane Lusi MD on 03/27/2025 12:04 PM Final report signed by Parth Cortez MD on 03/27/2025 4:26 PM Dereje Knight MD IMG CT PROCEDURES Final Resul t * Fine needle aspiration - Core Biopsy (03/27/2025 10:04 AM EST) Case Report Cytology Case: [id number] Authorizing Provider: Parth Cortez MD Collected: 03/27/2025 1004 Ordering Location: [facility] A Interventional Received: 03/27/2025 1053 Radiology Pathologist: Jess Edwards MD Specimen: Lung, Right Upper Lobe, Core Biopsy with Touch Preparation, LUNG, RIGHT UPPER LOBE CT GUIDED CORE BIOPSY WITH TOUCH PREPS 6:16 PM EST [facility] Addendum PD-L1 IHC 22C3 pharmDx* is performed and the results are as follows: - Tumor proportion score (TPS)*: 1-2 % - Expression level: Positive for PD-L1 expression (TPS 1-49%) Comments to treating physician: Pembrolizumab is indicated for treatment of patients with metastatic NSCLC whose tumors have high PD-L1 expression (TPS greater than or equal to 50%) as determined by an FDA-approved test, with no EGFR or ALK genomic tumor aberrations, and no prior systemic chemotherapy treatment for metastatic NSCLC. Pembrolizumab is also indicated for the treatment of patients with metastatic NSCLC whose tumors express PD-L1 (TPS greater than or equal to 1%) as determined by an FDA-approved test, with disease progression on or after [place]-containin g chemotherapy. Patients with EGFR or ALK genomic tumor aberrations should have disease progression on FDA-approved therapy for these aberrations prior to receiving Pembrolizumab. PD-L1 IHC serves as a complementary diagnostic in regards to other PD-L1/JU-8-vdbcath dtherapies (Nivolumab, Atezolizumab, Durvalumab, etc). Expression level: >Negative for PD-L1 expression (TPS less than 1%) >Positive for PD-L1 expression (TPS 1-49%) >Positive for high PD-L1 expression (TPS greater than or equal to 50%) *PD-L1 IHC 22C3 pharmDx is a FDA-approved small electric engine technician diagnostic for pembrolizumab performed on [employer] using formalin-fixed, paraffin imbedded (FFPE) tissue from non-small kendal lung carcinomas. Positivity is scored only in viable tumor cells with membrane staining (partial or complete) of greater than or equal to 1+ intensity. The TPS is estimated by manual quantification of PD-L1 positivity. Certain tissue processing factors such as decalcification, formalin fixation time outside an acceptable range (12 to 72 hrs), and prolonged time to fixation can affect PD-L1 staining/expressio n levels and results should be interpreted with caution in such instances. Additionally, tissue from older (greater than 5 yrs) formalin-fixed paraffin-embedded blocks may lose PD-L1 immunoreactivity. This assay is not validated for decalcified specimens. All controls show appropriate reactivity. All immunohistochemist ry, in situ hybridization, and histochemical tests were developed by and are performed at the [facility], [address] [place] [address]. All tests reported here, except those addressing HER2 and PD-L1 expression as predictive markers, have not been cleared by or approved by the US Food and Drug Administration (FDA). The laboratory is regulated under CLIA as qualified to perform high-complexity testing. The tests are used for clinical purposes. They should not be regarded as investigational or for research. 6:16 PM EST [facility] Addendum electronically signed by Dano Mcginnis MD on 04/01/2025 at 1816 EST Final Diagnosis A. LUNG, RIGHT UPPER LOBE, CT GUIDED CORE BIOPSY: - POSITIVE FOR MALIGNANCY, ADENOCARCINOMA CONSISTENT WITH LUNG PRIMARY (SEE COMMENT). 5 6:16 PM EST [facility] at 1657 EST Comment Immunohistochemica l stains were performed which were supportive of the diagnosis (see below for details). PD-L1 is pending, and an addendum will be issued with the results. 5 6:16 PM [facility] Special and Immunohistochemical Stains IHC: A1-1 TTF-1 Positive A1-2 CK7 Positive All controls show appropriate reactivity. All immunohistochemist ry, in situ hybridization, and histochemical tests were developed by and are performed at the [facility], [address] [place] [address]. All tests reported here, except those addressing HER2 (breast) and PD-L1 expression as predictive markers, have not been cleared by or approved by the US Food and Drug Administration (FDA). The FDA has determined that such clearance or approval is not necessary. The laboratory is regulated under CLIA as qualified to perform high-complexity testing. The tests are used for clinical purposes. They should not be regarded as investigational or for research. This assay has not been validated on decalcified tissues. Results should be interpreted with caution given the likelihood of false negativity on decalcified specimens. 5 6:16 PM [facility] Immediate Evaluation Core biopsy performed by: Dr. Cortez Number of sticks: 5 Touch Prep performed by: Dr. Edwards / [place] Immediate evaluation episode Touch Prep # 1-2: Lesional The immediate evaluation in this case was performed via telecytology by the attending physician listed above. This service has been rendered in part by a resident. A pathologist has personally reviewed the slides/tissue and has rendered and is responsible for diagnosis for the diagnosis that appears on the report. 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 LUNG, RIGHT UPPER LOBE CT GUIDED CORE BIOPSY WITH TOUCH PREPS Multiple white thrasher cores of friable tissue, all measuring less than 0.1 cm in diameter and ranging from 0.1 cm to 0.4 cm in length, entirely submitted in biowrap and/or cassette. Received 2 diff quick touch prep slides. Specimen was placed in formalin at 10:34 am in cytology, and then taken to histology at 4:30 pm where it received an additional 3 hours of formalin fixation. Cold Time: 30m 5 6:16 PM EST [facility] Note: A resident was involved in the service. I attest I examined the relevant preparations for the specimens and confirmed the diagnosis or interpretation. 5 6:16 PM EST [facility] Clinical Information No Dx found. 6:16 PM EST [facility] Fine Needle Aspirate Lung structure / Unknown Non-blood Collection / Unknown 03/27/2025 10:04 AM EST 03/27/2025 10:53 AM EST us Parth Cortez MD LAB CYTOLOGY ORDERABLES Edite d Result - Final [facility] [address] [place] [address] documented in this encounter Visit Diagnoses Diagnosis Nodule of upper lobe of right lung Postprocedural pneumothorax Chronic obstructive pulmonary disease, unspecified COPD type (CMS/HCC) documented in this encounter Administered Medications Inactive Administered Medications - up to 3 most recent administrations Medication Order MAR Action Action Date Dose Rate Site fentaNYL (Sublimaze) injection 50 mcg 50 mcg, Intravenous, Once, 1 dose, On Evangelina 03/27/25 at 1400, STAT, Recovery(Phase II-Outpatient)/On Unit(Inpatient) Given 03/27/2025 1:08 PM EST 50 mcg fentaNYL (Sublimaze) injection Intravenous, As needed, Starting on Evangelina 03/27/25 at 0956, Until Evangelina 03/27/25 at 0956, Routine, Intraprocedure Given 03/27/2025 9:56 AM EST 25 mcg lidocaine (Xylocaine) 1 % injection Intradermal, As needed, Starting on Evangelina 03/27/25 at 0958, Until Evangelina 03/27/25 at 0958, Routine, Intraprocedure Given 03/27/2025 9:58 AM EST 5 mL midazolam (Versed) injection Intravenous, As needed, Starting on Evangelina 03/27/25 at 0956, Until Evangelina 03/27/25 at 0956, Routine, Intraprocedure Given 03/27/2025 9:56 AM EST 1 mg documented in this encounter Additional Health Concerns Assessment Noted Time A fall risk assessment has been complete d for the patient 03/12/2025 8:18 AM EST A Body Mass Index follow-up plan has been documented for the patient 03/31/2025 6:29 PM EST documented as of this encounter Care Teams Lead Cargo Mover Relationship Specialty Start Date End Date Ortega Roach MD [address] [place] [address] [place] [address] PCP - General 06/09/22 03/30/25 Ortega Vo MD [address] [place] [address] [place] [address] Referring Physician 01/08/25 documented as of this encounter
--- OUTSIDE RECORDS SUMMARY | 2025-03-27 10:44 | XMS_ITS | Encounter Summary ---
Author Organization [facility] Address [address] [id number] Care Team Providers Care Utility Worker Driver Name Role Phone Ortega Roach MD Primary Care Provider [phone] Ortega Vo MD Unavailable [phone] Reason for Visit * Auth/Cert (Routine) Specialty Diagnoses / Procedures Referred By Contac t Referred To Contact Diagnoses Pneumothorax Parth Cortez MD [address] [place] [address] Phone: tel: fax: [facility] Inpatient [address] [place] [address] Referral ID Status Reason Start Date Expiration Date Visits Re quested Visits Authorized [id number] 1 1 Encounter Details Date Type Department Care Team (Latest Contact Info) Description 03/27/2025 10:44 AM EST - 03/27/2025 12:40 PM EST Hospital Encounter [facility] Rad[facility] [address] [place] [id number] Discharge Disposition: Home or Self Care Social [...] drink first t christin in 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 Wish to be (Past 1 Month) No 025 8:35 AM Sarina Jimenez RN 2. Non-Specific Active Suici candy Thoughts (Past 1 Month) No 03/27/2025 8:35 AM Sarina Jimenez RN 6. Suicidal Behavior (Lifetime) No 5 8:35 AM Sarina Jimenez RN documented as of this encounter Medications at Time of Discharge albuterol 108 (90 Base) MCG/ACT inhaler 2 puffs 4 times a day as needed. Patient only uses as needed . 06/02/2022 HYDROcodone-aceta minophen ([place]) 10-325 MG tablet 1 tablet 3 times [...] Appointment [facility] Radiation [id number] [place] [address] Emma Hidaglo MD documented as of this encounter Procedures Procedure Name Priority Date/Time Associated Diagnosis Comments XR CHEST 1 VIEW Routine 03/27/2025 11:45 AM EST documented in this encounter Results * XR Chest 1 View (03/27/2025 11:45 [...] MD IMG XR PROCEDURES Final Resul t documented in this encounter Visit Diagnoses Not on filedocumented in this encounter Additional Health Concerns Assessment Noted Time A fall risk assessment has been complete d for the patient 03/12/2025 8:18 AM EST A Body Mass Index follow-up plan has been documented for the patient 03/31/2025 6:29 PM EST documented as of this encounter Care Teams Utility Worker Driver Relationship Specialty Start Date End Date Ortega Roach MD [address] [facility] [place] [address] PCP - General 06/09/22 03/30/25 Ortega Vo MD [address] [place] [address] [place] [address] Referring Physician 01/08/25 documented as of this encounter
--- OUTSIDE RECORDS SUMMARY | 2025-03-27 12:41 | XMS_ITS | Encounter Summary ---
Author Organization [facility] Address [address] [id number] Care Team Providers Care Veneer Drier Name Role Phone Ortega Roach MD Primary Care Provider [phone] Ortega Vo MD Unavailable [phone] Reason for Visit * Auth/Cert (Routine) Specialty Diagnoses / Procedures Referred By Contac t Referred To Contact Diagnoses Pneumothorax Parth Cortez MD [address] [place] [address] Phone: tel: fax: [facility] Inpatient [address] [place] [address] Referral ID Status Reason Start Date Expiration Date Visits Re quested Visits Authorized [id number] 1 1 Encounter Details Date Type Department Care Team (Latest Contact Info) Description 03/27/2025 12:41 PM EST - 03/27/2025 1:02 PM [facility] Hospital Encounter [facility] Radiology [address] [place] [phone] Discharge Disposition: Home or Self Care Social [...] drink first t christin in the morning (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 06/02/2022 HYDROcodone-aceta minophen ([place]) 10-325 MG tablet 1 tablet 3 times [...] Appointment [facility] [id number] [place] [address] Emma Hidalgo MD documented as of this encounter Procedures Procedure Name Priority Date/Time Associated Diagnosis Comments XR CHEST 1 VIEW Timed 03/27/2025 1:09 PM EST documented in this encounter Results * XR Chest 1 View (03/27/2025 1:09 [...] documented as of this encounter Care Teams Veneer Drier Relationship Specialty Start Date End Date Ortega Roach MD [address] [place] [address] [place] [address] PCP - General 06/09/22 03/30/25 Ortega Vo MD [address] [place] [address] [place] [address] Referring Physician 01/08/25 documented as of this encounter
--- OUTSIDE RECORDS SUMMARY | 2025-03-27 13:44 | XMS_ITS | Encounter Summary ---
Author Organization [facility] Address [address] [place] [address] Care Team Providers Care Setter Machine Name Role Phone Ortega Roach MD Primary Care Provider [phone] Ortega Vo MD Unavailable [phone] Stephen Loyd DO Primary Care Provider [phone] Reason for Referral * Consultation (Urgent) - Authorized Specialty Diagnoses / Procedures Referred By Contac t Referred To Contact Pulmonology Diagnoses Postprocedural pneumothorax Ranjan Jacobs MD [address] [place] [address] Phone: tel: fax: [facility] [address] [place] [address] Phone: tel: fax: Referral ID Status Reason Start Date Expiration Date Visits Requested Visits Authorized [id number] Authorized Specialty Services Required 09/30/2026 1 1 Scheduling Instructions Pneumothorax follow up with Interventional Pulm this week (Dr. Yoder/Stephen Stern) * Consultation (Routine) - Authorized Specialty Diagnoses / Procedures Referred By Contac t Referred To Contact Family Medicine Diagnoses Postprocedural pneumothorax Chronic obstructive pulmonary disease, unspecified COPD type (CMS/HCC) Ranjan Jacobs MD [address] [place] [address] Phone: tel: fax: Referral ID Status Reason Start Date Expiration Date V isits Requested Visits Authorized [id number] Authorized 03/31/2025 09/30/2026 1 1 Reason for Visit * Auth/Cert (Routine) Specialty Diagnoses / Procedures Referred By Contac t Referred To Contact Diagnoses Pneumothorax Parth Cortez MD [address] [place] [address] Phone: tel: fax: [facility] [address] [place] [address] Referral ID Status Reason Start Date Expiration Date Visits Re quested Visits Authorized [id number] 1 1 Encounter Details Date Type Department Care Team (Latest Contact Info) Description 03/27/2025 1:44 PM EST - 03/31/2025 6:44 PM EST Hospital Encounter [facility] [address] [place] [address] Parth Cortez MD [address] [place] [address] Luli Valentin DO [address] [place] [address] Ranjan Jacobs MD [address] [place] [address] Sarina Brumfield RN None None Postprocedural pneumothorax (Primary Dx); Chronic obstructive pulmonary disease, unspecified COPD type ([facility]) Discharge Disposition: Home or Self Care Social History Tobacco Use Types Packs/Day Years Used Date Smoking Tobacco: Former Cigarettes 1 49 0 06/08/1973 - 06/08/2022 Passive Smoke Exposure: Never Smokeless Tobacco: Never Alcohol Use Standard Drinks/Week Comments Never 0 (1 standard drink = 0.6 oz pur e alcohol) PHQ-2 Answer Date Recorded Patient Health Questionnaire-2 Score 0 03/12/2025 Humiliation, Afraid, Rape, and Kick questionnair e Answer Date Recorded Within the last year, have y ou been afraid of your partner or ex-partner? No 03/31/2025 Within the last year, have y ou been humiliated or emotionally abused in other ways by your partner or ex-partner? No Within the last year, have y ou been kicked, hit, slapped, or otherwise physically hurt by your partner or ex-partner? No 03/31/2025 Within the last year, have y ou been raped or forced to have any kind of sexual activity by your partner or ex-partner? No 03/31/2025 AUDIT-C Answer Date Recorded Q1: How often do you have a drink containing alcohol? Never 02/24/2025 Q2: How many drinks containi ng alcohol do you have on a typical day when you are drinking? Patient does not drink Q3: How often do you have si x or more drinks on one occasion? Never 02/24/2025 Hunger Vital Sign Answer Date Recorded Within the past 12 months, y ou worried that your food would run out before you got the money to buy more. Never true 03/31/20 25 Within the past 12 months, t he food you bought just didn't last and you didn't have money to get more. Never true 03/31/2025 PRAPARE - Transportation Answer Date Re corded In the past 12 months, has l ack of transportation kept you from medical appointments or from getting medications? No 03/17 In the past 12 months, has l ack of transportation kept you from meetings, work, or from getting things needed for daily living? No 03/31/2025 Housing Stability Vital Sign Answer Nik e Recorded In the last 12 months, was t here a time when you were not able to pay the mortgage or rent on time? No 03/31/2025 Number of Times Moved in the Last Year Not on fi le 03/31/2025 At any time in the [facility], were you homeless or living in a longterm (including now)? No 03/31/2025 [facility] Utilities Answer Date Recorded In the past 12 months has th e electric, gas, oil, or water company threatened to shut off services in your home? No 03/31/2025 CAGE ASSESSMENT Answer Date Recorded Cage unable [...] drink first t christin in the morning ([facility]) to steady your nerves or to get [...] Sign Reading Time Taken Comments Blood Pressure 129/77 03/31/2025 3:33 PM EST Pulse 81 03/31/2025 3:33 PM EST Temperature 36.7 C (98.1 F) 03/31/2025 3:33 PM EST Respiratory Rate 16 03/31/2025 3:33 PM EST Oxygen Saturation 92% 03/31/2025 3:33 PM EST Inhaled Oxygen Concentration - - Weight 54 kg (119 lb 0.8 oz) 03/31/2025 5:00 AM EST Height 152.4 cm (5') 03/27/2025 7:21 PM EST Body Mass Index 23.25 03/27/2025 7:21 PM EST documented in this encounter Functional Status * Question Answer Date of Assessment Author Precautions Environmental surveillance 03/31/2025 6:0 0 PM EST Jamaal Stahl RN * Calculated C-SSRS Risk Score (Lifetime/Recent) Answer Date of Assessment Author No Risk Indicated 03/31/2025 8:00 AM EST Jamaal Stahl RN * Question Answer Date of Assessment Author 1. Wish to be (Past 1 Month) No 025 8:00 AM EST Jamaal Stahl RN 2. Non-Specific Active Suici candy Thoughts (Past 1 Month) No 03/31/2025 8:00 AM EST Jamaal Stahl RN 6. Suicidal Behavior (Lifetime) No 8:00 AM EST Jamaal Stahl RN documented as of this encounter Mental Status * Question Answer Entry Date Author Precautions Environmental surveillance 03/31/2025 6:0 0 PM EST Jamaal Stahl RN * Question Answer Entry Date Author Scale Used Carlos 03/27/2025 3:48 PM EST Klarissa Mccartney RN documented in this encounter Discharge Instructions * Discharge Instructions* Ranjan Jacobs MD - 03/31/2025 2:38 PM EST Please follow up with oncology and your primary care after discharge. Follow up with interventional pulmonary in one week with repeat CXR. Seek medical attention if you develop new or worsening shortness of breath or right sided chest pain. documented in this encounter Medications at Time of Discharge albuterol 108 (90 Base) MCG/ACT inhaler 2 puffs 4 times a day as needed. Patient only uses as needed . 06/02/2022 HYDROcodone-aceta minophen (Sebring) 10-325 MG tablet 1 tablet 3 times a day as needed for severe pain. lisinopril-hydroC HLOROthiazide 20-12.5 MG tablet Take 1 tablet by mouth daily. 12/04/2023 ramelteon (Rozerem) 8 MG tablet Take 1 tablet by mouth nightly. 01/16/2025 Trelegy Ellipta 100-62.5-25 MCG/ACT aerosol powder Inhale 1 puff daily. 06/02/2022 documented as of this encounter Miscellaneous Notes * Discharge Summary - Ranjan Jacobs MD - 03/31/2025 6:23 PM EST Hospitalization Admit Date/Time: 03/27/2025 1:44 PM Admitting Attending: Luli Valentin Discharge Date: 03/31/2025 Discharge Attending Physician: Ranjan Jacobs MD PCP name and Address: Stephen Loyd, DO [address] / [place] [address] Referring provider name and address: Parth Cortez MD [address] [place] [address] Chief Concern, Brief History of Present Illness, and Hospital Course Filomena Garcia is a 69-year-old female with a history of COPD, hypertension, and 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 - 03/30: CXR shows further improvement. - 03/31: CXR showed stable small PTX with clamp trial. Chest tube removed. Post removal CXR showed slight increase in PTX but patient remained asymptomatic. Plan - Follow up with interventional pulmonology later this week (with repeat CXR) and biopsy result COPD - pt takes Trelegy - continue per hospital formulary exchange HTN - resume home lisinopril/hydrochlorothiazide Chronic pain - continue home Sebring Surgeries and Procedures Medication List .. albuterol 108 (90 Base) MCG/ACT inhaler 2 puffs 4 times a day as needed. Patient only uses as needed . HYDROcodone-acetaminophen 10-325 MG tablet Commonly known as: [place]bring 1 tablet 3 times a day as needed for severe pain. lisinopril-hydroCHLOROthiazide 20-12.5 MG tablet Take 1 tablet by mouth daily. ramelteon 8 MG tablet Commonly known as: Rozerem Take 1 tablet by mouth nightly. Trelegy Ellipta 100-62.5-25 MCG/ACT aerosol powder Generic drug: Jksskxhhhwn-Ywofznhox-Eewzcg Inhale 1 puff daily. Discharge Diagnosis Medical Problems Active and Resolved Hospital Problems Hospital Primary adenocarcinoma of lower lobe of right lung Overview Signed 08/24/2022 3:16 PM by Galina Charles APRN 08/23/2022: s/p bronchoscopy, right robotic lower lobectomy, mediastinal lymph node dissection, intercostal nerve blocks Right chest tube in place Monitor chest tube output Pain control Pathology pending * (Principal) Pneumothorax Hypertension Overview Addendum 08/24/2022 8:50 PM by Destiney Dominguez APRN Holding home anti-HTN in setting of hypotension COPD (chronic obstructive pulmonary disease) Overview Signed 08/24/2022 3:17 PM by Galina Charles APRN Resume home meds/nebs as appropriate Post Discharge Instructions Outpatient Follow-Up Future Appointments Date Time Provider Department Center 04/07/2025 1:30 PM Emma Hidalgo MD [facility] Test Results Pending At Discharge Pertinent Physical Exam At Time of Discharge Physical Exam Constitutional: General: She is not in acute distress. Appearance: Normal appearance. She is not toxic-appearing. HENT: Head: Normocephalic and atraumatic. Eyes: General: No scleral icterus. Cardiovascular: Rate and Rhythm: Normal rate and regular rhythm. Pulmonary: Effort: Pulmonary effort is normal. No respiratory distress. Abdominal: General: Abdomen is flat. Musculoskeletal: Right lower leg: No edema. Left lower leg: No edema. Neurological: General: No focal deficit present. Psychiatric: Mood and Affect: Mood normal. Behavior: Behavior normal. Discharge Disposition/Condition Disposition: Home Condition: Stable (s/sx potential problems absent or manageable) I spent >30 minutes of patient care and instruction time in preparation for this discharge. * Progress Notes - Tiffany Kirk RN - 03/31/2025 10:24 AM EST Case Management Adult Initial Progress Note Filomena Garcia 69 y.o. female CSN: [id number] Admission: 03/27/2025 1:44 PM Primary Problem: Pneumothorax Soils Technician reviewed chart and spoke with patient to complete this Initial Case Management Assessment. PCP: Stephen Loyd DO Emergency Contact: Extended Emergency Contact Information Primary Emergency Contact: gutierrez garcia Mobile Relation: Spouse Preferred language: Sammarinese Printer Slotter Helper needed? No Secondary Emergency Contact: Gracia Pederson Mobile Relation: Daughter Insurance: Primary Visit Coverage Payer Plan Sponsor Code Group Number Group Name [employer] [id number] Primary Visit Coverage Subscriber Subscriber ID Subscriber Name Subscriber SSN Subscriber Address [id number] FILOMENA GARCIA [id number] [place] [address] Patient information: Primary Caregiver: Self Accompanied by/Relationship: Spouse-Gutierrez Garcia Support System: Immediate family Daily Living Activities: Functional Status: Independent Living Arrangements: Spouse/Significant other, Children (Spouse/Grandchild (3)) Type of Residence: Private residence, Multi Level ([address]) [address] [place] [address] Smoker in the Home?: No Current DME: Equipment Currently Used at Home: none Income Information: Income Source: Retired Income/Expense Information: Income meets expenses Current Resources Utilized: None Housing Circumstances-Z Codes: Housing Circumstances (select all that apply): None Applicable Patient Referred to: Financial Resources: (N/A) Community Resources: (N/A) Anticipated Discharge Date: TBD Patient's Discharge Goal: Return home with family Assistance Available at Discharge: Self/Family Discharge Transport: Spouse Follow Up Transport: Spouse Home Health / Home Infusion / Outpatient Dialysis Services: Denied Living Will/Advance Directive/Power of Barber Shop Operator /Guardian: Have you reviewed your Advance Directive and is it valid for this stay?: No Advance Directive: Patient would not like information Information Provided on Healthcare Directives: No Pre-existing DNR/DNI Order: No Patient Requests Assistance: No Additional Comments: POC and discharge plans were discussed with 5 treatment team during morning rounds. Per MD attending, pt is medically ready for discharge pending chest tube decision by interventional pulmonology.RNCM met with patient and spouse at bedside to complete IA and discuss discharge plans. Pt is a 69 y/o female with a pMHx of COPD and right lower lobe adenocarcinoma, stage IB (pT2aN0) s/p definitive lobectomy (08/23/22) with spiculated right upper lobe nodule discovered in 09/2024 with follow up PET/CT concerning for malignancy who presented to on 03/27/[address] guided percutaneous biopsy with VIR. Pt lives with her spouse and grandson in a 2-story home ([address]) in [place], [place]. Pt is independent and denies any HH, HI, DME, oxygen or dialysis at baseline. Pt reports being retired and receiving her GED. Pt states she is a former smoker and has been quit for 2 years. provides all transportation to all appointments and will provide transportation at discharge. PCP is Stephen Carson DO. Preferred pharmacy is [facility] - [place], [place] - [address] [address] [[id number]] Pending recommendations from Interventional Pulmonology, pt may discharge this afternoon. Will continue to follow and assist with all discharge needs. Tiffany Kirk RN [facility] Soils Technician Secure Chat Preferred [phone] * Care Plan - Jamaal Stahl RN - 03/31/2025 9:08 AM EST Problem: Adult Inpatient Plan of Care Goal: Plan of Care Review Outcome: Ongoing, Progressing Flowsheets (Taken 03/31/2025 0906) Progress: improving Outcome Evaluation: Pt agrees with current plan of care Plan of Care Reviewed With: patient spouse Goal: Patient-Specific Goal (Individualized) Outcome: Ongoing, Progressing Flowsheets (Taken 03/31/2025 0800) Patient/Family-Specific Goals (Include Timeframe): Pt will remain free from falls/injury during this shift Individualized Care Needs: Safety Anxieties, Fears or Concerns: None Goal: Absence of Hospital-Acquired Illness or Injury Outcome: Ongoing, Progressing Intervention: Prevent and Manage VTE (Venous Thromboembolism) Risk Flowsheets (Taken 03/31/2025 0800) VTE Prevention/Management: SCDs (sequential compression devices) off education provided Goal: Optimal Comfort and Wellbeing Outcome: Ongoing, Progressing Intervention: Provide Person-Centered Care Flowsheets (Taken 03/31/2025 0906) Trust Relationship/Rapport: care explained choices provided questions answered questions encouraged Problem: Fall Injury Risk Goal: Absence of Fall and Fall-Related Injury Outcome: Ongoing, Progressing Intervention: Promote Injury-Free Environment Flowsheets (Taken 03/31/2025 0800) Safety Promotion/Fall Prevention: activity supervised assistive device/personal items within reach clutter-free environment maintained fall prevention program maintained lighting adjusted mobility aid in reach nonskid shoes/slippers when out of bed room organization consistent safety round/check completed toileting scheduled Problem: Respiratory Compromise (Pneumothorax) Goal: Optimal Oxygenation and Ventilation Outcome: Ongoing, Progressing Intervention: Manage Pneumothorax Effects Flowsheets (Taken 03/31/2025 0906) Chest Tube Safety: all connections secured all tubing connections taped Airway/Ventilation Management: airway patency maintained * Progress Notes - Stephen Stern, BARREL STRAIGHTENER - 03/31/2025 8:52 AM EST Subjective No acute distress. No new complaints. Tolerated water seal for about 2 days. No air leak could be reproduced today. Discussed plan for clamping trial and possible removal vs. If this failed dischargewith heimlich valve. Denied chest pain/dyspnea. Ambulating around room. Review of Systems Constitutional: Negative for chills and fever. HENT: Negative for sore throat. Respiratory: Negative for cough and shortness of breath. Cardiovascular: Negative for chest pain and palpitations. Gastrointestinal: Negative for abdominal pain, nausea and vomiting. Neurological: Negative for headaches. Hematological: Does not bruise/bleed easily. Psychiatric/Behavioral: Negative for confusion. Objective Vitals Temp: [36.5 ??C (97.7 ??F)-36.7 ??C (98.1 ??F)] 36.5 ??C (97.7 ??F) Heart Rate: [59-74] 59 Resp: [15-16] 15 BP: (120-124)/(71-76) 121/71 Physical Exam Constitutional: Appearance: She is not toxic-appearing or diaphoretic. HENT: Right Ear: External ear normal. Left Ear: External ear normal. Nose: Nose normal. Mouth/Throat: Mouth: Mucous membranes are moist. Pharynx: Oropharynx is clear. Eyes: General: No scleral icterus. Extraocular Movements: Extraocular movements intact. Cardiovascular: Rate and Rhythm: Normal rate. Pulses: Normal pulses. Pulmonary: Effort: Pulmonary effort is normal. No tachypnea, accessory muscle usage or respiratory distress. Comments: Right chest tube Chest: Chest wall: No crepitus. Abdominal: General: There is no distension. Palpations: Abdomen is soft. Musculoskeletal: Cervical back: Normal range of motion and neck supple. Right lower leg: No edema. Left lower leg: No edema. Skin: General: Skin is warm and dry. Capillary Refill: Capillary refill takes less than 2 seconds. Coloration: Skin is not jaundiced. Neurological: Mental Status: She is alert and oriented to person, place, and time. Mental status is at baseline. Psychiatric: Mood and Affect: Mood normal. Behavior: Behavior normal. Assessment & Plan Filomena Garcia is a 69 y.o. female former smoker with a past medical history of COPD and NSCLC presenting with a 13mm (increasing in size) FDG avid Right upper lobe lung nodule for CT Guided biopsy with Interventional Radiology on 03/27/2025 complicated by a right iatrogenic pneumothorax. Notably a posterior approach was taken for the CT Guided biopsy to reach the Right upper lobe nodule. Interventional Pulmonology was consulted by IR for Chest tube/pneumothorax management. # Right iatrogenic pneumothorax - 8 Fr right chest tube placed 03/27/2025 by IR. - Tolerated water seal this weekend. No air leak today 03/31/2025. Clamping trial today. Repeat chest x-ray 11:00AM. If stable remove chest tube and repeat chest x-ray after. If does not tolerate clamping trial (hypoxia/hypotension/respiratory distress) - unclamp to -[id number] suction and contact primary team and IP. If does not tolerate clamping trial would consider heimlich valve. - Avoid NSAIDS/steroids as possible to aid wound healing. - At this point patient does not require any advanced procedure such as endobronchial valve, pleurodesis, or autologous blood patching. # Stage 1B Adenocarcinoma of Lung - Recommend referral to Radiation Oncology and discussion in Tumor Board (given 2nd primary vs. Recurrence of old adeno in 2 years). This patient and plan of care has been discussed with Dr. Tracey Yoder. Stephen Stern APRN Pager: [phone] - The air leak is quite small. * Care Plan - Jarred Nunez RN - 03/30/2025 9:59 PM EST Problem: Adult Inpatient Plan of Care Goal: Plan of Care Review Outcome: Ongoing, Progressing Flowsheets (Taken 03/30/20252157) Progress: improving Outcome Evaluation: Patient agrees with plan of care Plan of Care Reviewed With: patient spouse Goal: Patient-Specific Goal (Individualized) Outcome: Ongoing, Progressing Flowsheets (Taken 03/30/20251999) Patient/Family-Specific Goals (Include Timeframe): Patient will have adequate pain control this shift Individualized Care Needs: Pain management Anxieties, Fears or Concerns: Wants to go home Goal: Absence of Hospital-Acquired Illness or Injury Outcome: Ongoing, Progressing Intervention: Identify and Manage Fall Risk Flowsheets (Taken 03/30/20252157) Safety Promotion/Fall Prevention: assistive device/personal items within reach clutter-free environment maintained lighting adjusted nonskid shoes/slippers when out of bed room organization consistent safety round/check completed fall prevention program maintained activity supervised Goal: Optimal Comfort and Wellbeing Outcome: Ongoing, Progressing Intervention: Monitor Pain and Promote Comfort Flowsheets (Taken 03/30/20252157) Pain Management Interventions: medication (see MAR) Problem: Fall Injury Risk Goal: Absence of Fall and Fall-Related Injury Outcome: Ongoing, Progressing Intervention: Identify and Manage Contributors Flowsheets (Taken 03/30/20252157) Medication Review/Management: medications reviewed Self-Care Promotion: independence encouraged Problem: Respiratory Compromise (Pneumothorax) Goal: Optimal Oxygenation and Ventilation Outcome: Ongoing, Progressing Intervention: Manage Pneumothorax Effects Flowsheets (Taken 03/30/20252157) Chest Tube Safety: all connections secured all tubing connections taped Airway/Ventilation Management: airway patency maintained * Progress Notes - Ranjan Jacobs MD - 03/30/2025 3:54 PM EST Subjective No acute event. PT is doing well. Reviewed CXR at bedside. IP will follow up and decide on her chest tube mgmt tomorrow. Review of Systems Objective Vitals Temp: [36.4 ??C (97.5 ??F)-36.8 ??C (98.2 ??F)] 36.7 ??C (98.1 ??F) Heart Rate: [60-70] 70 Resp: [15-16] 16 BP: (116-124)/(64-76) 124/76 Physical Exam Constitutional: General: She is not in acute distress. Appearance: Normal appearance. She is not toxic-appearing. HENT: Head: Normocephalic and atraumatic. Eyes: General: No scleral icterus. Cardiovascular: Rate and Rhythm: Normal rate and regular rhythm. Pulmonary: Effort: Pulmonary effort is normal. No respiratory distress. Comments: R apical chest tube Abdominal: General: Abdomen is flat. Musculoskeletal: Right lower leg: No edema. Left lower leg: No edema. Neurological: General: No focal deficit present. Psychiatric: Mood and Affect: Mood normal. Behavior: Behavior normal. Labs in last 18 hours Assessment & Plan Pneumothorax Primary adenocarcinoma of lower lobe of right lung Hypertension COPD (chronic obstructive pulmonary disease) Filomena Garcia is a 69 yo female with history of COPD and right lower lobe adenocarcinoma, stage IB (pT2aN0) s/p definitive lobectomy (08/23/22) with spiculated right upper lobe nodule discovered in 09/2024 with follow up PET/CT concerning for malignancy who presented to on 03/27/[address] guided per cutaneous biopsy with VIR c/b pneumothorax. 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 03/30: CXR shows further improvement. Only smallapical PTX only. Discussed with pulm. Continue water seal today and IP will decide on the chest tube mgmt. Heimlich valve vs remove. COPD - pt takes Trelegy - continue per hospital formulary exchange HTN - resume home lisinopril/hydrochlorothiazide Chronic pain - continue home [place] Diet - regular diet as tolerated DVT PPX: SCDs GI PPX: none Dispo: home in 1-2 days Dispo: home when ready * Care Plan - Jamaal Stahl RN - 03/30/2025 9:21 AM EST Problem: Adult Inpatient Plan of Care Goal: Plan of Care Review Outcome: Ongoing, Progressing Flowsheets (Taken 03/30/2025 09) Progress: improving Outcome Evaluation: Pt agrees with current plan of care Plan of Care Reviewed With: patient spouse Goal: Patient-Specific Goal (Individualized) Outcome: Ongoing, Progressing Flowsheets (Taken 03/30/2025 08) Patient/Family-Specific Goals (Include Timeframe): Pt will remain free from falls/injury during this shift Individualized Care Needs: Safety Anxieties, Fears or Concerns: None Goal: Absence of Hospital-Acquired Illness or Injury Outcome: Ongoing, Progressing Intervention: Prevent and Manage VTE (Venous Thromboembolism) Risk Flowsheets (Taken 03/30/2025 08) VTE Prevention/Management: SCDs (sequential compression devices) off Goal: Optimal Comfort and Wellbeing Outcome: Ongoing, Progressing Intervention: Provide Person-Centered Care Flowsheets (Taken 03/30/2025 09) Trust Relationship/Rapport: care explained choices provided questions answered questions encouraged Problem: Fall Injury Risk Goal: Absence of Fall and Fall-Related Injury Outcome: Ongoing, Progressing Intervention: Promote Injury-Free Environment Flowsheets (Taken 03/30/2025 08) Safety Promotion/Fall Prevention: activity supervised assistive device/personal items within reach clutter-free environment maintained fall prevention program maintained lighting adjusted mobility aid in reach nonskid shoes/slippers when out of bed room organization consistent safety round/check completed toileting scheduled Problem: Respiratory Compromise (Pneumothorax) Goal: Optimal Oxygenation and Ventilation Outcome: Ongoing, Progressing Intervention: Manage Pneumothorax Effects Flowsheets (Taken 03/30/2025 09) Chest Tube Safety: all connections secured all tubing connections taped Airway/Ventilation Management: airway patency maintained position adjusted * Care Plan - Jarred Nunez RN - 03/29/2025 8:44 PM EST Problem: Adult Inpatient Plan of Care Goal: Plan of Care Review Outcome: Ongoing, Progressing Flowsheets (Taken 03/29/20252042) Progress: improving Outcome Evaluation: Patient agrees with plan of care Plan of Care Reviewed With: patient spouse Goal: Patient-Specific Goal (Individualized) Outcome: Ongoing, Progressing Flowsheets (Taken 03/29/20251999) Patient/Family-Specific Goals (Include Timeframe): Patient will have adequate pain control this shift Individualized Care Needs: Pain management, chest tube management Anxieties, Fears or Concerns: Wants to go home Goal: Absence of Hospital-Acquired Illness or Injury Outcome: Ongoing, Progressing Intervention: Identify and Manage Fall Risk Flowsheets (Taken 03/29/20252042) Safety Promotion/Fall Prevention: activity supervised assistive device/personal items within reach clutter-free environment maintained fall prevention program maintained lighting adjusted nonskid shoes/slippers when out of bed room organization consistent safety round/check completed toileting scheduled Goal: Optimal Comfort and Wellbeing Outcome: Ongoing, Progressing Intervention: Monitor Pain and Promote Comfort Flowsheets (Taken 03/29/20252042) Pain Management Interventions: medication (see MAR) Problem: Fall Injury Risk Goal: Absence of Fall and Fall-Related Injury Outcome: Ongoing, Progressing Intervention: Identify and Manage Contributors Flowsheets (Taken 03/29/20252042) Medication Review/Management: medications reviewed Self-Care Promotion: independence encouraged Problem: Respiratory Compromise (Pneumothorax) Goal: Optimal Oxygenation and Ventilation Outcome: Ongoing, Progressing Intervention: Manage Pneumothorax Effects Flowsheets (Taken 03/29/20252042) Chest Tube Safety: all connections secured all tubing connections taped Airway/Ventilation Management: airway patency maintained * Care Plan - Jamaal Stahl RN - 03/29/2025 2:08 PM EST Problem: Adult Inpatient Plan of Care Goal: Plan of Care Review Outcome: Ongoing, Progressing Flowsheets (Taken 03/29/2025 1407) Progress: improving Outcome Evaluation: Pt agrees with cureent plan of care Plan of Care Reviewed With: patient spouse Goal: Patient-Specific Goal (Individualized) Outcome: Ongoing, Progressing Flowsheets (Taken 03/29/2025 0800) Patient/Family-Specific Goals (Include Timeframe): Pt will remain free from falls/injury during this shift Individualized Care Needs: Safety Anxieties, Fears or Concerns: None Goal: Absence of Hospital-Acquired Illness or Injury Outcome: Ongoing, Progressing Intervention: Prevent and Manage VTE (Venous Thromboembolism) Risk Flowsheets (Taken 03/29/2025 1200) VTE Prevention/Management: bilateral lower extremity SCDs (sequential compression devices) on Goal: Optimal Comfort and Wellbeing Outcome: Ongoing, Progressing Intervention: Provide Person-Centered Care Flowsheets (Taken 03/29/2025 1407) Trust Relationship/Rapport: care explained choices provided questions answered questions encouraged Problem: Fall Injury Risk Goal: Absence of Fall and Fall-Related Injury Outcome: Ongoing, Progressing Intervention: Promote Injury-Free Environment Flowsheets (Taken 03/29/2025 0800) Safety Promotion/Fall Prevention: activity supervised assistive device/personal items within reach clutter-free environment maintained fall prevention program maintained lighting adjusted mobility aid in reach nonskid shoes/slippers when out of bed room organization consistent safety round/check completed toileting scheduled Problem: Respiratory Compromise (Pneumothorax) Goal: Optimal Oxygenation and Ventilation Outcome: Ongoing, Progressing Intervention: Manage Pneumothorax Effects Flowsheets (Taken 03/29/2025 1407) Chest Tube Safety: all connections secured all tubing connections taped Airway/Ventilation Management: airway patency maintained * Clinician Note - Georgia Jovel DO - 03/29/2025 1:51 PM EST 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 CXR stable if not slightly improved. Will trial water seal today. Repeat CXR tonight and tomorrow AM. * Progress Notes - Ranjan Jacobs MD - 03/29/2025 1:42 PM EST Subjective No acute event. CXR this am showed improving but persistent PTX. Suction stopped. Now on water seal. Pt is doing well clinically. Review of Systems Objective Vitals Temp: [36.4 ??C (97.5 ??F)-36.6 ??C (97.9 ??F)] 36.6 ??C (97.9 ??F) Heart Rate: [63-79] 79 Resp: [16-18] 18 BP: (120-144)/(63-74) 144/74 Physical Exam Constitutional: General: She is not in acute distress. Appearance: Normal appearance. She is not toxic-appearing. HENT: Head: Normocephalic and atraumatic. Eyes: General: No scleral icterus. Cardiovascular: Rate and Rhythm: Normal rate and regular rhythm. Pulmonary: Effort: Pulmonary effort is normal. No respiratory distress. Comments: R apical chest tube Abdominal: General: Abdomen is flat. Musculoskeletal: Right lower leg: No edema. Left lower leg: No edema. Neurological: General: No focal deficit present. Psychiatric: Mood and Affect: Mood normal. Behavior: Behavior normal. Labs in last 18 hours CBC WBC 13.45 (H) Hb 13.0 Plt 559 (H) Hct 39.4 ANC 7.98 (H) INR ??, PTT ??, Anti-Xa ?? BMP Na 139 Cl 103 BUN 14 Glu 93 K 5.0 (H) Co2 25 Cr 0.71 Ca 9.1 iCa ?? Mg ??, Phos ?? Lactate ?? Assessment & Plan Pneumothorax Primary adenocarcinoma of lower lobe of right lung Hypertension COPD (chronic obstructive pulmonary disease) Filomena Garcia is a 69 yo female with history of COPD and right lower lobe adenocarcinoma, stage IB (pT2aN0) s/p definitive lobectomy (08/23/22) with spiculated right upper lobe nodule discovered in 09/2024 with follow up PET/CT concerning for malignancy who presented to on 03/27/[address] guided per cutaneous biopsy with VIR c/b pneumothorax. R iatrogenic pneumothorax RUL spiculated lung nodule c/f malignancy H/o RLL adenocarcinoma stage IB (pT2aN0) s/p lobectomy - s/p - 8 Fr right chest tube placed 03/27/2025 by IR - follow up CXR showed slightly increased still small right pneumothorax - IP decreased to -[id number] suction PLAN: - IP consulted by IR - rec decreasing H20 suction to lowest acceptable level, will defer water sealtrial today - at this point pt does not require any advanced procedure such as endobronchial valve,pleurodesis, or autologous blood patching - 03/29: pulm switched from suction to water seal. Repeat CXR this pm. If next CXR is stable or improving, plan to keep it on water seal overnight and reassess CXR in AM. COPD - pt takes Trelegy - continue per hospital formulary exchange HTN - resume home lisinopril/hydrochlorothiazide Chronic pain - continue home [place] Diet - regular diet as tolerated DVT PPX: SCDs GI PPX: none Dispo: home when ready * Care Plan - Jarred Nunez RN - 03/28/2025 9:40 PM EST Problem: Adult Inpatient Plan of Care Goal: Plan of Care Review Outcome: Ongoing, Progressing Flowsheets (Taken 03/28/20252137) Progress: improving Outcome Evaluation: Patient agrees with plan of care Plan of Care Reviewed With: patient spouse Goal: Patient-Specific Goal (Individualized) Outcome: Ongoing, Progressing Flowsheets (Taken 03/28/20251999) Patient/Family-Specific Goals (Include Timeframe): Patient will maintain respiratory status this shift Individualized Care Needs: Respiratory status monitoring Anxieties, Fears or Concerns: Wants chest tube out Goal: Absence of Hospital-Acquired Illness or Injury Outcome: Ongoing, Progressing Intervention: Identify and Manage Fall Risk Flowsheets (Taken 03/28/20252137) Safety Promotion/Fall Prevention: activity supervised assistive device/personal items within reach clutter-free environment maintained fall prevention program maintained lighting adjusted nonskid shoes/slippers when out of bed room organization consistent safety round/check completed toileting scheduled Goal: Optimal Comfort and Wellbeing Outcome: Ongoing, Progressing Intervention: Monitor Pain and Promote Comfort Flowsheets (Taken 03/28/20252137) Pain Management Interventions: medication (see MAR) Problem: Fall Injury Risk Goal: Absence of Fall and Fall-Related Injury Outcome: Ongoing, Progressing Intervention: Identify and Manage Contributors Flowsheets (Taken 03/28/20252137) Medication Review/Management: medications reviewed Self-Care Promotion: independence encouraged Problem: Respiratory Compromise (Pneumothorax) Goal: Optimal Oxygenation and Ventilation Outcome: Ongoing, Progressing Intervention: Manage Pneumothorax Effects Flowsheets (Taken 03/28/20252137) Chest Tube Safety: all connections secured all tubing connections taped suction checked Administration (IS): self-administered Airway/Ventilation Management: airway patency maintained * H&P - Pooja Ba APRN, DNP - 03/28/2025 3:58 PM ESTAssociated Order(s): Inpatient consult to Hospital Medicine Inpatient consult to Hospital Medicine Consult performed by: Pooja Ba APRN, JOSI Consult ordered by: Parth Cortez MD Reason for consult: pneumothorax Chief Complaint: iatrogenic pneumothorax History of Present Illness: Filomena Garcia is a 69 year old female with PMHx including COPD and right lower lobe adenocarcinoma, stage IB (pT2aN0) s/p definitive lobectomy (08/23/22) with spiculated right upper lobe nodule discovered in 09/2024 with follow up PET/CT concerning for malignancy who presented to on 03/27/25 forCT guided percutaneous biopsy with VIR. Pt developed pneumothorax 1 hour after procedure and chest tube was placed, and put to - H20 suction. Pneumothorax noted to be slightly in creased this AM (03/28). Pt sitting up in bed at time of exam. She denies any chest pain, shortness of air at this time.Of note, previous lung biopsies have been complicated by pneumothorax. Past Medical History: RLL adenocarcinoma s/p lobectomy COPD HTN Scoliosis Descending thoracic aortic aneurysm Past Surgical History: Bronchoscopy, right robotic lower lobectomy, mediastinal lymph node dissection (08/23/22) Right VATS evacuation of hemothorax and decortication (08/25/22) Tonsillectomy Appendectomy Hysterectomy Cholecystectomy Social History: Pt. lives with her in [place], [place]. Tobacco: former, quit 2022 EtOH: denies Illicit substances: denies Family History: Family History[1] Allergies: Allergies[2] Medications: Meds obtained from patient list and dispense history. Further clarification needed from pharm. Current Discharge Medication List CONTINUE these medications which have NOT CHANGED Details albuterol 108 (90 Base) MCG/ACT inhaler 2 puffs 4 (four) times a day if needed. Patient only uses as needed . HYDROcodone-acetaminophen (Sebring) 10-325 MG tablet 3 (three) times a day if needed for severe pain. lisinopril-hydroCHLOROthiazide 20-12.5 MG tablet Take 1 tablet by mouth 1 (one) time each day. MELATONIN PO Take by mouth. ramelteon (Rozerem) 8 MG tablet Trelegy Ellipta 100-62.5-25 MCG/ACT aerosol powder INHALE 1 PUFF ONCE DAILY Review of Systems Constitutional: Negative for activity change, chills, fatigue and fever. HENT: Negative for congestion, sore throat and trouble swallowing. Eyes: Negative for photophobia and visual disturbance. Respiratory: Negative for cough, chest tightness, shortness of breath and wheezing. Cardiovascular: Negative for chest pain, palpitations and leg swelling. Gastrointestinal: Negative for abdominal distention, abdominal pain, constipation, diarrhea, nauseaand vomiting. Genitourinary: Negative for difficulty urinating, dysuria and hematuria. Musculoskeletal: Positive for back pain (chronic). Negative for gait problem and joint swelling. Skin: Negative for color change and wound. Neurological: Negative for dizziness, seizures, syncope, weakness, numbness and headaches. Hematological: Negative for adenopathy. Does not bruise/bleed easily. Psychiatric/Behavioral: Negative for agitation, confusion and suicidal ideas. Objective: Last Recorded Vitals Blood pressure 126/73, pulse 68, temperature 36.6 ??C (97.9 ??F), temperature source Oral, resp. rate 18, height 1.524 m (5'), weight 53.4 kg (117 lb 11.6 oz), SpO2 90%. Physical Exam Vitals and nursing note reviewed. Constitutional: General: She is not in acute distress. Appearance: Normal appearance. She is not toxic-appearing. HENT: Head: Normocephalic and atraumatic. Nose: No congestion. Mouth/Throat: Mouth: Mucous membranes are moist. Pharynx: Oropharynx is clear. Eyes: General: No scleral icterus. Extraocular Movements: Extraocular movements intact. Pupils: Pupils are equal, round, and reactive to light. Cardiovascular: Rate and Rhythm: Normal rate and regular rhythm. Pulses: Normal pulses. Heart sounds: Normal heart sounds. Pulmonary: Effort: Pulmonary effort is normal. No respiratory distress. Breath sounds: No stridor. No wheezing or rhonchi. Comments: R apical chest tube Abdominal: General: Abdomen is flat. Bowel sounds are normal. There is no distension. Palpations: Abdomen is soft. Tenderness: There is no abdominal tenderness. There is no guarding or rebound. Musculoskeletal: General: No swelling, tenderness or deformity. Normal range of motion. Cervical back: Normal range of motion. No tenderness. Right lower leg: No edema. Left lower leg: No edema. Skin: General: Skin is warm and dry. Capillary Refill: Capillary refill takes less than 2 seconds. Findings: No bruising. Neurological: General: No focal deficit present. Mental Status: She is alert and oriented to person, place, and time. Mental status is at baseline. Motor: No weakness. Psychiatric: Mood and Affect: Mood normal. Behavior: Behavior normal. Assessment/Plan Principal Problem: Pneumothorax Active Problems: Primary adenocarcinoma of lower lobe of right lung Hypertension COPD (chronic obstructive pulmonary disease) Assessment and Plan: 69 yoF PMHx including COPD and right lower lobe adenocarcinoma, stage IB (pT2aN0) s/p definitive lobectomy (08/23/22) with spiculated right upper lobe nodule discovered in 09/2024 with follow up PET/CT concerning for malignancy who presented to on 03/27/[address] guided percutaneous biopsy with VIRc/b pneumothorax. R iatrogenic pneumothorax RUL spiculated lung nodule c/f malignancy H/o RLL adenocarcinoma stage IB (pT2aN0) s/p lobectomy - s/p - 8 Fr right chest tube placed 03/27/2025 by IR - follow up CXR showed slightly increased still small right pneumothorax - IP decreased to -[id number] suction PLAN: - IP consulted by IR - rec decreasing H20 suction to lowest acceptable level, will defer water sealtrial today - at this point pt does not require any advanced procedure such as endobronchial valve,pleurodesis, or autologous blood patching - CXR in AM - per pulm -> If Am CXR stable (asymptomatic/minimally pneumothorax is fine) then plan to proceed with water seal trial - with plans only to place to suction (least amount) if patient develops actual hypoxia/chest pain/ signs of tamponade. From there may consider water seal trial versus discharge with a heimlich valve and outpatient removal of the chest tube. 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 No Secondary Emergency Contact: Gracia Pederson Mobile Relation: Daughter Pooja Reza Barbara, BARREL STRAIGHTENER [facility] Medicine Pager [phone] [1] Family History Problem Relation Name Age of Onset No Known Problems Mother No Known Problems Father Diabetes Sister Breast cancer Sister Cancer Brother Heart disease Other Anesthesia problems Neg Hx Malig Hyperthermia Neg Hx [2] Allergies Allergen Reactions Atorvastatin Other - please document in the comment field Made her feel bad * Consults - Stephen Stern APRN - 03/28/2025 3:54 PM ESTAssociated Order(s): Inpatient consult to Pulmonology Inpatient consult to Pulmonology Consult performed by: Stephen Stern APRN Consult ordered by: Parth Cortez MD Reason for consult: non resolving pneumothorax post right lung biopsy in a severely emphysematous patient Reason For Consult non resolving pneumothorax post right lung biopsy in a severely emphysematous patient Requesting Service: Parth Cortez MD - Interventional Radiology Requested Date/Time: 03/28/2025 1500 History Of Present Illness Filomena Garcia is a 69 y.o. female former smoker presenting with a 13mm (increasing in size) FDGavid Right upper lobe lung nodule for CT Guided biopsy with Interventional Radiology on 03/27/2025 complicated by a right iatrogenic pneumothorax. Notably a posterior approach was taken for the CT Guided biopsy to reach the Right upper lobe nodule. Interventional Pulmonology was consulted by CONOR Yousif tube/pneumothorax management. Patient has a history of a stage 1 adenocarcinoma. Diagnosed in [address] guided biopsy. She alsohad a robotic bronchoscopy with Dr. Andrade however was nondiagnostic. She unfortunately had two pneumothorax after each biopsy. She underwent robotic RLL lobectomy on 08/23/22. On exam today she was initially with the atrium to -40 suction with the wall to -20 and with a tinyintermittent expiratory air leak. Medical/Surgical/Social/Family History I have reviewed and updated the patient history. Allergies Atorvastatin Medications Current Medications[1] Review of Systems Review of Systems Constitutional: Negative for chills and fever. Eyes: Negative for visual disturbance. Respiratory: Negative for cough and shortness of breath. Cardiovascular: Negative for chest pain and palpitations. Gastrointestinal: Negative for abdominal pain. Neurological: Negative for headaches. Psychiatric/Behavioral: Negative for confusion. Physical Exam Physical Exam Constitutional: General: She is not in acute distress. Appearance: She is not toxic-appearing or diaphoretic. HENT: Right Ear: External ear normal. Left Ear: External ear normal. Nose: Nose normal. Mouth/Throat: Mouth: Mucous membranes are moist. Pharynx: Oropharynx is clear. Eyes: General: No scleral icterus. Cardiovascular: Rate and Rhythm: Normal rate. Pulmonary: Effort: Pulmonary effort is normal. No tachypnea, accessory muscle usage or retractions. Comments: Right apical chest tube Abdominal: General: There is no distension. Palpations: Abdomen is soft. Musculoskeletal: Cervical back: Normal range of motion and neck supple. Right lower leg: No edema. Left lower leg: No edema. Skin: General: Skin is warm and dry. Coloration: Skin is not jaundiced. Neurological: Mental Status: She is alert and oriented to person, place, and time. Mental status is at baseline. Psychiatric: Mood and Affect: Mood normal. Behavior: Behavior normal. Last Recorded Vitals Blood pressure 126/73, pulse 68, temperature 36.6 ??C (97.9 ??F), temperature source Oral, resp. rate 18, height 1.524 m (5'), weight 53.4 kg (117 lb 11.6 oz), SpO2 90%. Results Review I have reviewed the latest lab and imaging results. Assessment & Plan Pneumothorax # Right iatrogenic pneumothorax - 8 Fr right chest tube placed 03/27/2025 by IR. - Drain to -[id number] suction. Strongly recommend decreasing (which we did) to lowest acceptable level. As it is late in day will defer water seal trial today. - At this point patient does not require any advanced procedure such as endobronchial valve, pleurodesis, or autologous blood patching. - Repeat chest x-ray portable tomorrow am. - If chest x-ray stable (asymptomatic/minimally pneumothorax is fine) then plan to proceed with water seal trial - with plans only to place to suction (least amount) if patient develops actual hypoxia/chest pain/ signs of tamponade. From there we may consider water seal trial versus discharge with a heimlich valve and outpatient removal of the chest tube. - Avoid NSAIDS/steroids as possible to aid wound healing. # COPD - Continue home medications - Follow up General Pulmonology # Lung Nodule - follow up results This patient and plan of care has been discussed with Dr. Dereje Knight. Stephen Stern, BARREL STRAIGHTENER Pager: [phone] - The air leak is quite small. [1] Current Facility-Administered Medications Medication Dose Route Frequency Provider Last Rate Last Admin acetaminophen (Tylenol) tablet 650 mg 650 mg Oral q6h PRN Parth Cortez MD 650 mg at 03/28/25 1425 albuterol 108 (90 Base) MCG/ACT inhaler 2 puff 2 puff Inhalation q4h PRN Parth Cortez MD HYDROcodone-acetaminophen (Sebring) 5-325 MG per tablet 5 mg of hydrocodone 5 mg of hydrocodone Oral q6h PRN Parth Cortez MD 5 mg of hydrocodone at 03/28/25 1425 melatonin tablet 3 mg 3 mg Oral Nightly Parth Cortez MD 3 mg at 03/27/252125 Tiotropium [place] Monohydrate (Spiriva Respimat) 2.5 MCG/ACT inhaler 2 puff 2 puff Inhalation Daily Parth Cortez MD 2 puff at 03/28/25 09 And mometasone-formoterol (Dulera 100) 100-5 MCG/ACT inhaler 2 puff 2 puff Inhalation BID Parth Cortez MD 2 puff at 03/28/25 0927 ondansetron ODT (Zofran-ODT) disintegrating tablet 4 mg 4 mg Oral q6h PRN Parth Cortez MD Or ondansetron (Zofran) injection 4 mg 4 mg Intravenous q6h PRN Parth Cortez MD Or ondansetron (Zofran) 4 MG/5ML solution 4 mg 4 mg Oral q6h PRN Parth Cortez MD sodium chloride 0.9 % flush 10 mL 10 mL Intravenous q12h Parth Cortez MD 10 mL at 03/28/25 1347 And sodium chloride 0.9 % flush 10 mL 10 mL Intravenous PRN Parth Cortez MD * Consults - Gutierrez Woods - 03/28/2025 1:30 PM EST Pastoral Care Note Filomena and spouseGutierrez, apprecaite prayer and Pastoral care they welcome visits as able. Shank Paperer provided listening, spiritual and prayer support. Referral From: Shank Paperer Initiated Pastoral Care Provided For: Spouse, Patient Patient Profile: Consult Reasons: Continuation of care Spiritual Assessment: Support Systems/ Spiritual Resources: Spiritual community, Raeann, Family, Spiritual practice, Gratitude, Prayer Spiritual Needs: Emotional support, Prayer, Spiritual support Spiritual Issues: Chronic pain/ illness Interventions: Interventions Provided: Emotional support, Spiritual support, Prayer, Consulted with care team, Family support, Supportive Listening Pastoral Care Outcomes: Patient Outcomes: Identifies spiritual or rastafari practices as helpful, Communicates increased satisfaction with hospital experience, Gratitude, Appreciative of Shank Paperer Support Gutierrez Woods * Care Plan - Jamaal Stahl RN - 03/28/2025 10:18 AM EST Problem: Adult Inpatient Plan of Care Goal: Plan of Care Review Outcome: Ongoing, Progressing Flowsheets (Taken 03/28/2025 1017) Progress: improving Outcome Evaluation: Pt agrees with current plan of care Plan of Care Reviewed With: patient spouse Goal: Patient-Specific Goal (Individualized) Outcome: Ongoing, Progressing Flowsheets (Taken 03/28/2025 0800) Patient/Family-Specific Goals (Include Timeframe): Pt will remain free from falls/injury during this shift Individualized Care Needs: Safety Anxieties, Fears or Concerns: None Goal: Absence of Hospital-Acquired Illness or Injury Outcome: Ongoing, Progressing Intervention: Prevent and Manage VTE (Venous Thromboembolism) Risk Flowsheets (Taken 03/28/2025 0800) VTE Prevention/Management: SCDs (sequential compression devices) off education provided Goal: Optimal Comfort and Wellbeing Outcome: Ongoing, Progressing Intervention: Provide Person-Centered Care Flowsheets (Taken 03/28/2025 1017) Trust Relationship/Rapport: care explained choices provided questions answered questions encouraged Problem: Fall Injury Risk Goal: Absence of Fall and Fall-Related Injury Outcome: Ongoing, Progressing Intervention: Promote Injury-Free Environment Flowsheets (Taken 03/28/2025 08) Safety Promotion/Fall Prevention: activity supervised assistive device/personal items within reach clutter-free environment maintained fall prevention program maintained lighting adjusted mobility aid in reach nonskid shoes/slippers when out of bed room organization consistent safety round/check completed toileting scheduled Problem: Respiratory Compromise (Pneumothorax) Goal: Optimal Oxygenation and Ventilation Outcome: Ongoing, Progressing Intervention: Manage Pneumothorax Effects Flowsheets (Taken 03/28/2025 1017) Chest Tube Safety: all connections secured all tubing connections taped suction checked Airway/Ventilation Management: airway patency maintained position adjusted * Care Plan - Susan Ellison RN - 03/28/2025 7:12 AM EST Problem: Adult Inpatient Plan of Care Goal: Plan of Care Review Outcome: Ongoing, Progressing Flowsheets (Taken 03/28/2025 0710) Progress: improving Outcome Evaluation: pt agrees with poc Plan of Care Reviewed With: patient Goal: Patient-Specific Goal (Individualized) Outcome: Ongoing, Progressing Flowsheets (Taken 03/27/2025 1947) Patient/Family-Specific Goals (Include Timeframe): monitor chest tube and respiratory statuskeep [id number] 90% this shift Individualized Care Needs: monitor breathing, assess chest tube Anxieties, Fears or Concerns: hurts to breath Goal: Absence of Hospital-Acquired Illness or Injury Outcome: Ongoing, Progressing Intervention: Identify and Manage Fall Risk Flowsheets (Taken 03/28/2025 0710) Safety Promotion/Fall Prevention: activity supervised clutter-free environment maintained fall prevention program maintained lighting adjusted nonskid shoes/slippers when out of bed safety round/check completed Intervention: Prevent Skin Injury Flowsheets Taken 03/28/2025 0710 Skin Protection: pulse oximeter probe site changed Taken 03/28/2025 0400 Body Position: weight shifting Intervention: Prevent and Manage VTE (Venous Thromboembolism) Risk Flowsheets (Taken 03/28/2025 0000) VTE Prevention/Management: medication Intervention: Prevent Infection Flowsheets (Taken 03/28/2025 0710) Infection Prevention: hand hygiene promoted environmental surveillance performed personal protective equipment utilized single patient room provided rest/sleep promoted Goal: Optimal Comfort and Wellbeing Outcome: Ongoing, Progressing Intervention: Monitor Pain and Promote Comfort Flowsheets (Taken 03/28/2025 0710) Pain Management Interventions: medication (see MAR) pillow support provided care clustered Intervention: Provide Person-Centered Care Flowsheets (Taken 03/28/2025 0710) Trust Relationship/Rapport: care explained choices provided emotional support provided Problem: Fall Injury Risk Goal: Absence of Fall and Fall-Related Injury Outcome: Ongoing, Progressing Intervention: Identify and Manage Contributors Flowsheets (Taken 03/28/2025 0710) Medication Review/Management: medications reviewed Self-Care Promotion: independence encouraged Intervention: Promote Injury-Free Environment Flowsheets (Taken 03/28/2025 0710) Safety Promotion/Fall Prevention: activity supervised clutter-free environment maintained fall prevention program maintained lighting adjusted nonskid shoes/slippers when out of bed safety round/check completed * Consults - Gutierrez Woods - 03/27/2025 4:35 PM EST Pastoral Care Note Shank Paperer visited with Marilu at bedside,. They shared thier recent struggles with illness and how important [facility] is to them. They are aware of Pastoral Services and availability. Referral From: Shank Paperer Initiated Pastoral Care Provided For: Spouse, Patient Patient Profile: Consult Reasons: Initial visit Spiritual Assessment: Support Systems/ Spiritual Resources: Raeann, Family, Prayer, Meaningful spiritual experience, Spiritual community Spiritual Needs: Emotional support, Prayer, Spiritual support Spiritual Issues: Chronic pain/ illness Interventions: Interventions Provided: Emotional support, Family support, Introduced Patient/Family to Shank Paperer Services, Prayer, Spiritual support, Supportive Listening Pastoral Care Outcomes: Patient Outcomes: Is knowledgeable about [employer], Appreciative of Shank Paperer Support, Gratitude, Identifies spiritual or rastafari practices as helpful, Expresses ongoing struggle Gutierrez Woods * Post-Procedure Note - Ousmane Luis MD - 03/27/2025 1:30 PM EST Vascular and Interventional Radiology Brief Postprocedure Note Attending: Dr Cortez Marketing Data Specialist: none Pre-operative Diagnosis: post lung biopsy pneumo Post-operative Diagnosis: same Type of Anesthesia: Conscious Sedation Description of Findings: right pneumo Technical/Surgical Procedures Used: ct guided chest tube on the right (8 Fr) Specimen Obtained: No Complications: None Estimated Blood Loss: none Procedure Events Event Event Time See detailed result report with images in PACS. The patient tolerated the procedure well without incident or complication and is in stable condition. documented in this encounter Plan of Treatment Upcoming Encounters Date Type Department Care Team (Late st Contact Info) Description 04/07/2025 1:30 PM EST Appointment [address] [phone] Emma Hidalgo MD Scheduled Orders Name Type Priority Associated Diagnoses Orde r Schedule XR Chest 1 View Imaging Routine Postprocedural pneumothorax Expected: 04/04/2025 (Approximate), Expires: 10/02/2026 Scheduled Referrals Name Type Priority Associated Diagnoses Orde r Schedule Ambulatory referral to External PCP Outpatient Referral Routine Postprocedural pneumothorax Chronic obstructive pulmonary disease, unspecified COPD type (CMS/HCC) 1 Occurrences starting 03/31/2025 until 10/02/2026 Discharge Ambulatory referral to Pulmonology Outpatient Referral Routine Postprocedural pneumothorax Expected: 04/07/2025, Expires: 10/02/2026 documented as of this encounter Procedures Procedure Name Priority Date/Time Associated Diagnosis Comments XR CHEST 1 VIEW STAT 03/31/2025 5:29 PM EST XR CHEST 1 VIEW Routine 03/31/2025 11:07 AM EST XR CHEST 1 VIEW Timed 03/31/2025 5:28 AM EST XR CHEST 1 VIEW Routine 03/30/2025 9:41 AM EST XR CHEST 1 VIEW Routine 03/29/2025 3:23 PM EST XR CHEST 1 VIEW Routine 03/29/2025 10:32 AM EST XR CHEST 1 VIEW Timed 03/29/2025 4:47 AM EST CBC WITH AUTO DIFFERENTIAL Routine 03/29/2025 12:27 AM EST BASIC METABOLIC PANEL, PLASMA Routine 03/29/2025 12:27 AM EST XR CHEST 1 VIEW Routine 03/28/2025 11:48 AM EST XR CHEST 1 VIEW Routine 03/28/2025 9:08 AM EST XR CHEST 1 VIEW STAT 03/27/2025 2:[address] GUIDED CHEST TUBE RIGHT Routine 03/27/2025 1:35 PM EST documented in this encounter Results * XR Chest 1 View (03/31/2025 5:29 PM EST) Anatomical Region Laterality Modality Chest Digital Radiogra phy Impressions 03/31/2025 5:43 PM EST Increase in trace right apical pneumothorax status post removal of the right chest tube CRITICAL RESULT: No COMMUNICATION: Per this written report. Drafted by Rima Murdock MD on 03/31/2025 5:42 PM Final report signed by Rima Murdock MD on 03/31/2025 5:43 PM Narrative 03/31/2025 5:43 PM EST CLINICAL INDICATION: status post chest tube removal TECHNIQUE: XR CHEST 1 VIEW COMPARISON: Same day radiograph at 11:00 AM FINDINGS: The cardiomediastinal silhouette is stable. Interval removal of the right pleural drain. Increase in trace right apical pneumothorax. No new focal consolidation or enlarging effusion. Procedure Note Rima Murdock MD - 03/31/2025 CLINICAL INDICATION: status post chest tube removal TECHNIQUE: XR CHEST 1 VIEW COMPARISON: Same day radiograph at 11:00 AM FINDINGS: The cardiomediastinal silhouette is stable. Interval removal of the rightpleural drain. Increase in trace right apical pneumothorax. No new focalconsolidation or enlarging effusion. IMPRESSION: Increase in trace right apical pneumothorax status post removal of theright chest tube CRITICAL RESULT: No COMMUNICATION: Per this written report. Drafted by Rima Murdock MD on 03/31/2025 5:42 PM Final report signed by Rima Murdock MD on 03/31/2025 5:43 PM us Stephen Cristóbal Stern [employer] IMG XR PROCEDURES Final Res ult * XR Chest 1 View (03/31/2025 11:07 AM EST) Anatomical Region Laterality Modality Chest Digital Radiogra phy Impressions 03/31/2025 12:56 PM EST No significant interval change. Trace right apical pneumothorax. Aneurysmal thoracic aorta. Recommend further evaluation with dedicated CTA of the chest. CRITICAL RESULT: No. COMMUNICATION: Per this written report. By electronically signing this report, I, the attending physician, attest that I have personally reviewed the images/data for the above examination(s) and agree with the final edited report. Drafted by Iris Kang MD on 03/31/2025 11:20 AM Final report signed by Ayush Kyle MD on 03/31/2025 12:56 PM Narrative 03/31/2025 12:56 PM EST CLINICAL INDICATION: chest tube clamped - evaluate pneumothorax TECHNIQUE: XR CHEST 1 VIEW COMPARISON: 03/31/2025 at 5:29 AM FINDINGS: Right pigtail catheter projects in similar position. Trace right pneumothorax, not increased from prior. Stable cardiac silhouette and mediastinal contours. Aneurysmal aorta.. No pleural effusion. Procedure Note Ayush Kyle MD - 03/31/2025 CLINICAL INDICATION: chest tube clamped - evaluate pneumothorax TECHNIQUE: XR CHEST 1 VIEW COMPARISON: 03/31/2025 at 5:29 AM FINDINGS: Right pigtail catheter projects in similar position. Trace rightpneumothorax, not increased from prior. Stable cardiac silhouette andmediastinal contours. Aneurysmal aorta.. No pleural effusion. IMPRESSION: No significant interval change. Trace right apical pneumothorax. Aneurysmal thoracic aorta. Recommend further evaluation with dedicated CTAof the chest. CRITICAL RESULT: No. COMMUNICATION: Per this written report. By electronically signing this report, I, the attending physician, attestthat I have personally reviewed the images/data for the aboveexamination(s) and agree with the final edited report. Drafted by Iris Kang MD on 03/31/2025 11:20 AM Final report signed by Ayush Kyle MD on 03/31/2025 12:56 PM us Stephen Cristóbal Stern [employer] IMG XR PROCEDURES Final Res ult * XR Chest 1 View (03/31/2025 5:28 AM EST) Anatomical Region Laterality Modality Chest Digital Radiogra phy Impressions 03/31/2025 10:34 AM EST Stable chest. CRITICAL RESULT: No. COMMUNICATION: Per this written report. By electronically signing this report, I, the attending physician, attest that I have personally reviewed the images/data for the above examination(s) and agree with the final edited report. Drafted by Issac Lopez DO on 03/31/2025 8:07 AM Final report signed by Ortega Schulte MD on 03/31/2025 10:34 AM Narrative 03/31/2025 10:34 AM EST CLINICAL INDICATION: pneumothorax follow up TECHNIQUE: XR CHEST 1 VIEW COMPARISON: Chest x-ray 03/30/2025, 03/29/2025. FINDINGS: Right-sided pigtail catheter in unchanged position. Redemonstration of trace right apical pneumothorax. Emphysematous changes and ectatic aorta are noted. Procedure Note Ortega Schulte MD - 03/31/2025 CLINICAL INDICATION: pneumothorax follow up TECHNIQUE: XR CHEST 1 VIEW COMPARISON: Chest x-ray 03/30/2025, 03/29/2025. FINDINGS: Right-sided pigtail catheter in unchanged position. Redemonstration oftrace right apical pneumothorax. Emphysematous changes and ectatic aortaare noted. IMPRESSION: Stable chest. CRITICAL RESULT: No. COMMUNICATION: Per this written report. By electronically signing this report, I, the attending physician, attestthat I have personally reviewed the images/data for the aboveexamination(s) and agree with the final edited report. Drafted by Issac Lopez DO on 03/31/2025 8:07 AM Final report signed by Ortega Schulte MD on 03/31/2025 10:34 AM Ranjan Jacobs MD IMG XR PROCEDURES Final Result * XR Chest 1 View (03/30/2025 9:41 AM EST) Anatomical Region Laterality Modality Chest Digital Radiogra phy Impressions 03/30/2025 12:59 PM EST Stable chest. CRITICAL RESULT: No. COMMUNICATION: Per this written report. Drafted by Federico Martell MD on 03/30/2025 12:58 PM Final report signed by Federico Martell MD on 03/30/2025 12:59 PM Narrative 03/30/2025 12:59 PM EST CLINICAL INDICATION: ptx TECHNIQUE: XR CHEST 1 VIEW COMPARISON: March 29, 2025. FINDINGS: Pigtail catheter in place. Trace right apical pneumothorax is unchanged. Emphysema. Ectasia of the thoracic aorta again noted. Procedure Note Federico Martell MD - 03/30/2025 CLINICAL INDICATION: ptx TECHNIQUE: XR CHEST 1 VIEW COMPARISON: March 29, 2025. FINDINGS: Pigtail catheter in place. Trace right apical pneumothorax is unchanged.Emphysema. Ectasia of the thoracic aorta again noted. IMPRESSION: Stable chest. CRITICAL RESULT: No. COMMUNICATION: Per this written report. Drafted by Federico Martell MD on 03/30/2025 12:58 PM Final report signed by Federico Martell MD on 03/30/2025 12:59 PM Ranjan Jacobs MD IMG XR PROCEDURES Final Result * XR Chest 1 View (03/29/2025 3:23 PM EST) Anatomical Region Laterality Modality Chest Digital Radiogra phy Impressions 03/29/2025 3:41 PM EST Small right apical pneumothorax. CRITICAL RESULT: No. COMMUNICATION: Per this written report. Drafted by Nallely Lopez MD on 03/29/2025 3:40 PM Final report signed by Nallely Lopez MD on 03/29/2025 3:41 PM Narrative 03/29/2025 3:41 PM EST CLINICAL INDICATION: Pneumothorax on water seal trial. TECHNIQUE: XR CHEST 1 VIEW COMPARISON: 03/29/2025. FINDINGS: Right pigtail chest tube projects in unchanged position. Bibasilar atelectasis. Small right apical pneumothorax, unchanged. Stable cardiac silhouette with ectatic aorta. Procedure Note Nallely Lopez MD - 03/29/2025 CLINICAL INDICATION: Pneumothorax on water seal trial. TECHNIQUE: XR CHEST 1 VIEW COMPARISON: 03/29/2025. FINDINGS: Right pigtail chest tube projects in unchanged position. Bibasilaratelectasis. Small right apical pneumothorax, unchanged. Stable cardiacsilhouette with ectatic aorta. IMPRESSION: Small right apical pneumothorax. CRITICAL RESULT: No. COMMUNICATION: Per this written report. Drafted by Nallely Lopez MD on 03/29/2025 3:40 PM Final report signed by Nallely Lopez MD on 03/29/2025 3:41 PM Ranjan Jacobs MD IMG XR PROCEDURES Final Result * XR Chest 1 View (03/29/2025 10:32 AM EST) Anatomical Region Laterality Modality Chest Digital Radiogra phy Impressions 03/29/2025 1:51 PM EST Stable chest. CRITICAL RESULT: No. COMMUNICATION: Per this written report. Drafted by Federico Martell MD on 03/29/2025 1:51 PM Final report signed by Federico Martell MD on 03/29/2025 1:51 PM Narrative 03/29/2025 1:51 PM EST CLINICAL INDICATION: PTX now on water seal TECHNIQUE: XR CHEST 1 VIEW COMPARISON: Earlier same day. FINDINGS: Small right apical pneumothorax with pigtail catheter drain in place. Left lung is clear. Ectasia of the thoracic aorta. Procedure Note Federico Martell MD - 03/29/2025 CLINICAL INDICATION: PTX now on water seal TECHNIQUE: XR CHEST 1 VIEW COMPARISON: Earlier same day. FINDINGS: Small right apical pneumothorax with pigtail catheter drain in place. Leftlung is clear. Ectasia of the thoracic aorta. IMPRESSION: Stable chest. CRITICAL RESULT: No. COMMUNICATION: Per this written report. Drafted by Federico Martell MD on 03/29/2025 1:51 PM Final report signed by Federico Martell MD on 03/29/2025 1:51 PM Ranjan Jacobs MD IMG XR PROCEDURES Final Result * XR Chest 1 View (03/29/2025 4:47 AM EST) Anatomical Region Laterality Modality Chest Digital Radiogra phy Impressions 03/29/2025 10:11 AM EST Slight interval decreased size of right apical pneumothorax. CRITICAL RESULT: No. COMMUNICATION: Per this written report. Drafted by Federico Martell MD on 03/29/2025 10:10 AM Final report signed by Federico Martell MD on 03/29/2025 10:11 AM Narrative 03/29/2025 10:11 AM EST CLINICAL INDICATION: R pneumothorax TECHNIQUE: XR CHEST 1 VIEW COMPARISON: March 28, 2025. FINDINGS: Pigtail catheter within the right pleural cavity. Decrease in right-sided apical pneumothorax. Emphysema. Ectasia of the thoracic aorta. Procedure Note Federico Martell MD - 03/29/2025 CLINICAL INDICATION: R pneumothorax TECHNIQUE: XR CHEST 1 VIEW COMPARISON: March 28, 2025. FINDINGS: Pigtail catheter within the right pleural cavity. Decrease in right-sidedapical pneumothorax. Emphysema. Ectasia of the thoracic aorta. IMPRESSION: Slight interval decreased size of right apical pneumothorax. CRITICAL RESULT: No. COMMUNICATION: Per this written report. Drafted by Federico Martell MD on 03/29/2025 10:10 AM Final report signed by Federico Martell MD on 03/29/2025 10:11 AM Pooja Joshua Jimenez APRN, DNP IMG XR PROCED URES Final Result * (ABNORMAL) Basic metabolic panel (03/29/2025 12:27 AM EST) Glucose, Plasma 93 74 - 99 mg/dL 03/29/2025 1:07 AM EST [facility] BUN, Plasma 14 8 - 23 mg/dL 03/29/2025 1:07 AM EST [facility] Creatinine, Plasma 0.71 0.60 - 1.10 mg/dL 03/29/2025 1:07 AM EST [facility] BUN/Creatinine Ratio 20 03/29/2025 1:07 AM EST [facility] Sodium, Plasma 139 136 - 145 mmol/L 03/29/2025 1:07 AM EST [facility] Potassium, Plasma 5.0(H) 3.6 - 4.9 mmol/L 03/29/2025 1:07 AM EST [facility] Chloride, Plasma 103 97 - 107 mmol/L 03/29/2025 1:07 AM EST [facility] CO2, Plasma 25 22 - 29 mmol/L 03/29/2025 1:07 AM EST [facility] Anion Gap 11 6 - 16 mmol/L 03/29/2025 1:07 AM EST [facility] Total Calcium, Plasma 9.1 8.9 - 10.2 mg/dL 03/29/2025 1:07 AM EST [facility] eGFRcr 91.0 mL/min/1.7 3m*2 03/29/2025 1:07 AM EST [facility] Comment:Reported eGFRcr in m L/min/1.73m2 is based the CKD-EPI 2020 equation that does not use a race coefficient. Blood Venous blood specimen / Unknown Venipuncture / Unknown 03/29/2025 12:27 AM EST 03/29/2025 12:35 AM EST Pooja B Libia [place] [employer], DNP LAB BLOOD ORD ERABLES Final Result [facility] [address] [place] [address] * (ABNORMAL) CBC and Differential (03/29/2025 12:27 AM EST) WBC Count 13.45(H) 3.70 - 10.30 10*3/uL LAB HEMATOLOGY METHOD 03/29/2025 12:46 AM EST [facility] RBC Count 4.39 3.90 - 5.20 10*6/uL LAB HEMATOLOGY METHOD 03/29/2025 12:46 AM EST [facility] HGB 13.0 11.2 - 15.7 g/dL LAB HEMATOLOGY METHOD 03/29/2025 12:46 AM EST [facility] HCT 39.4 34.0 - 45.0 % LAB HEMATOLOGY METHOD 03/29/2025 12:46 AM EST [facility] Platelet Count 559(H) 155 - 369 10*3/uL LAB HEMATOLOGY METHOD 03/29/2025 12:46 AM EST [facility] MCV 90 79 - 98 fL LAB HEMATOLOGY METHOD 03/29/2025 12:46 AM EST [facility] MCH 29.6 26.0 - 32.0 pg LAB HEMATOLOGY METHOD 03/29/2025 12:46 AM EST [facility] MCHC 33.0 30.7 - 35.5 g/dL LAB HEMATOLOGY METHOD 03/29/2025 12:46 AM EST [facility] RDW 12.5 11.5 - 14.5 % LAB HEMATOLOGY METHOD 03/29/2025 12:46 AM EST [facility] MPV 9.3 8.8 - 12.5 fL LAB HEMATOLOGY METHOD 03/29/2025 12:46 AM EST [facility] nRBC 0.0 <=0.0 per 100 WBCs LAB HEMATOLOGY METHOD 03/29/2025 12:46 AM EST [facility] Differential Type Automated LAB HEMATOLOGY METHOD 03/29/2025 12:46 AM EST [facility] Neutrophils % 59 % LAB HEMATOLOGY METHOD 03/29/2025 12:46 AM EST [facility] Lymphocytes % 27 % LAB HEMATOLOGY METHOD 03/29/2025 12:46 AM EST [facility] Monocytes % 10 % LAB HEMATOLOGY METHOD 03/29/2025 12:46 AM EST [facility] Eosinophils % 3 % LAB HEMATOLOGY METHOD 03/29/2025 12:46 AM EST [facility] Basophils % 1 % LAB HEMATOLOGY METHOD 03/29/2025 12:46 AM EST [facility] Immature Granulocytes % 0 % LAB HEMATOLOGY METHOD 03/29/2025 12:46 AM EST [facility] Neutrophils Absolute 7.98(H) 1.60 - 6.10 10*3/uL LAB HEMATOLOGY METHOD 03/29/2025 12:46 AM EST [facility] Lymphocytes Absolute 3.58 1.20 - 3.90 10*3/uL LAB HEMATOLOGY METHOD 03/29/2025 12:46 AM EST [facility] Monocytes Absolute 1.34(H) 0.30 - 0.90 10*3/uL LAB HEMATOLOGY METHOD 03/29/2025 12:46 AM EST [facility] Eosinophils Absolute 0.39 0.00 - 0.50 10*3/uL LAB HEMATOLOGY METHOD 03/29/2025 12:46 AM EST [facility] Basophils Absolute 0.11(H) 0.00 - 0.10 10*3/uL LAB HEMATOLOGY METHOD 03/29/2025 12:46 AM EST [facility] Immature Granulocytes Absolute 0.05 0.00 - 0.06 10*3/uL LAB HEMATOLOGY METHOD 03/29/2025 12:46 AM EST [facility] Blood Venous blood specimen / Unknown Venipuncture / Unknown 03/29/2025 12:27 AM EST 03/29/2025 12:37 AM EST Narrative [facility] - 03/29/2025 12:46 AM EST Therapeutic decision making should be based on absolute values, rather than percentages. us Pooja Jimenez [employer], DNP LAB BLOOD ORD ERABLES Final Result [facility] [address] [place] [address] * XR Chest 1 View (03/28/2025 11:48 AM EST) Anatomical Region Laterality Modality Chest Digital Radiogra phy Impressions 03/28/2025 11:56 AM EST Slightly increased still small right pneumothorax. CRITICAL RESULT: No. COMMUNICATION: Per this written report Drafted by French Victor MD on 03/28/2025 11:55 AM Final report signed by French Victor MD on 03/28/2025 11:56 AM Narrative 03/28/2025 11:56 AM EST CLINICAL INDICATION: control on pneumo thorax, shifted to waterseal with suction TECHNIQUE: XR CHEST 1 VIEW COMPARISON: March 28, 2025 FINDINGS: Right pleural catheter in place. The right pneumothorax is still small but slightly increased from comparison. Aortic atherosclerosis. No new consolidation. Procedure Note French Victor MD - 03/28/2025 CLINICAL INDICATION: control on pneumo thorax, shifted to waterseal with suction TECHNIQUE: XR CHEST 1 VIEW COMPARISON: March 28, 2025 FINDINGS: Right pleural catheter in place. The right pneumothorax is still small butslightly increased from comparison. Aortic atherosclerosis. No newconsolidation. IMPRESSION: Slightly increased still small right pneumothorax. CRITICAL RESULT: No. COMMUNICATION: Per this written report Drafted by French Victor MD on 03/28/2025 11:55 AM Final report signed by French Victor MD on 03/28/2025 11:56 AM us Parth Cortez MD IMG XR PROCEDURES Final Resul t * XR Chest 1 View (03/28/2025 9:08 AM EST) Anatomical Region Laterality Modality Chest Digital Radiogra phy Impressions 03/28/2025 9:12 AM EST Stable pneumothorax. CRITICAL RESULT: No. COMMUNICATION: Per this written report. Drafted by Ortega Schulte MD on 03/28/2025 9:11 AM Final report signed by Ortega Schulte MD on 03/28/2025 9:12 AM Narrative 03/28/2025 9:12 AM EST CLINICAL INDICATION: control chest tube after stopping suction TECHNIQUE: XR CHEST 1 VIEW COMPARISON: March 27, 2025 FINDINGS: Stable small right pneumothorax, with right chest tube remaining in place. No new pulmonary opacities. Procedure Note Ortega Schulte MD - 03/28/2025 CLINICAL INDICATION: control chest tube after stopping suction TECHNIQUE: XR CHEST 1 VIEW COMPARISON: March 27, 2025 FINDINGS: Stable small right pneumothorax, with right chest tube remaining in place.No new pulmonary opacities. IMPRESSION: Stable pneumothorax. CRITICAL RESULT: No. COMMUNICATION: Per this written report. Drafted by Ortega Schulte MD on 03/28/2025 9:11 AM Final report signed by Ortega Schulte MD on 03/28/2025 9:12 AM us Parth Cortez MD IMG XR PROCEDURES Final Resul t * XR Chest 1 View (03/27/2025 2:52 PM EST) Anatomical Region Laterality Modality Chest Digital Radiogra phy Impressions 03/27/2025 3:47 PM EST Interval placement of right pigtail chest tube. Decreased right pneumothorax, now small. CRITICAL RESULT: No. COMMUNICATION: Per this written report. By electronically signing this report, I, the attending physician, attest that I have personally reviewed the images/data for the above examination(s) and agree with the final edited report. Drafted by Antione Almazan III, MD on 03/27/2025 3:13 PM Final report signed by Ortega Schulte MD on 03/27/2025 3:47 PM Narrative 03/27/2025 3:47 PM EST CLINICAL INDICATION: Post right chest tube placement TECHNIQUE: XR CHEST 1 VIEW COMPARISON: Chest radiograph dated 03/27/2025 at 13:12 FINDINGS: Interval placement of right pigtail chest tube. Decreased small right pneumothorax, previously moderate-large. No focal airspace consolidation. No pleural effusion. No left pneumothorax. The mediastinal and cardiac contours are stable. Procedure Note Ortega Schulte MD - 03/27/2025 CLINICAL INDICATION: Post right chest tube placement TECHNIQUE: XR CHEST 1 VIEW COMPARISON: Chest radiograph dated 03/27/2025 at 13:12 FINDINGS: Interval placement of right pigtail chest tube. Decreased small rightpneumothorax, previously moderate-large. No focal airspace consolidation.No pleural effusion. No left pneumothorax. The mediastinal and cardiaccontours are stable. IMPRESSION: Interval placement of right pigtail chest tube. Decreased rightpneumothorax, now small. CRITICAL RESULT: No. COMMUNICATION: Per this written report. By electronically signing this report, I, the attending physician, marc I have personally reviewed the images/data for the aboveexamination(s) and agree with the final edited report. Drafted by Antione Almazan III, MD on 03/27/2025 3:13 PM Final report signed by Ortega Schulte MD on 03/27/2025 3:47 PM us Parth Cortez MD IMG XR PROCEDURES Final Resul t documented in this encounter Visit Diagnoses Diagnosis Pneumothorax- Primary Postprocedural pneumothorax Chronic obstructive pulmonary disease, unspecified COPD type ([facility]) COPD (chronic obstructive pulmonary disease) Chronic airway obstruction, not elsewhere classified Hypertension Unspecified essential hypertension Primary adenocarcinoma of lower lobe of right lung documented in this encounter Admitting Diagnoses Diagnosis Pneumothorax documented in this encounter Administered Medications Inactive Administered Medications - up to 3 most recent administrations Medication Order MAR Action Action Date Dose Rate Site acetaminophen (Tylenol) tablet 650 mg 650 mg, Oral, Every 6 hours PRN, Starting on Evangelina 03/27/25 at 1350, Until 03/31/25 at 2043, Routine, Recovery(Phase II-Outpatient)/On Unit(Inpatient), Mild Plus Pain with CPOT DVPRS FLACC PAINAD NPASS NRS Sheikh-Watt Faces score of 1 or greater OR NIPS score 2 or greater Given 03/31/2025 11:49 AM EST 650 mg Given 03/31/2025 5:25 AM EST 650 mg Given 03/30/2025 10:35 PM EST 650 mg hydroCHLOROthiazide (HYDRODiuril) tablet 12.5 mg 12.5 mg, Oral, Daily, First dose on 03/29/25 at 1330, Until Discontinued, Routine Given 03/31/2025 8:28 AM EST 12.5 mg Given 03/30/2025 8:11 AM EST 12.5 mg Given 03/29/2025 2:40 PM EST 12.5 mg HYDROcodone-acetaminophen (Sebring) 5-325 MG per tablet 5 mg of hydrocodone 5 mg of hydrocodone, Oral, Every 6 hours PRN, Starting on Evangelina 03/27/25 at 1351, Until 03/31/25 at 2043, Recovery(Phase II-Outpatient)/On Unit(Inpatient), Moderate Severe Pain with CPOT score of 3 or greater OR FLACC PAINAD NPASS NRS Sheikh-Watt Faces score of 4 or greater OR DVPRS NIPS score of 5 or greater Given 03/31/2025 11:49 AM EST 5 mg of hydrocod one Given 03/31/2025 5:25 AM EST 5 mg of hydrocodone Given 03/30/2025 10:36 PM EST 5 mg of hydrocodone lidocaine (Xylocaine) 1 % injection Intradermal, As needed, Starting on Evangelina 03/27/25 at 1326, Until Evangelina 03/27/25 at 1326, Routine, Intraprocedure Given 03/27/2025 1:26 PM EST 10 mL Rig ht Chest lisinopril tablet 20 mg 20 mg, Oral, Daily, First dose on 03/29/25 at 1330, Until Discontinued, Routine Given 03/31/2025 8:28 AM EST 20 mg Given 03/30/2025 8:11 AM EST 20 mg Given 03/29/2025 2:40 PM EST 20 mg melatonin tablet 3 mg 3 mg, Oral, Nightly, First dose on Evangelina 03/27/25 at 2100, Until Discontinued, Routine, Recovery(Phase II-Outpatient)/On Unit(Inpatient) Given 03/27/2025 9:26 PM EST 3 mg melatonin tablet 3 mg 3 mg, Oral, Nightly PRN, Starting on Mon03/28/25 at 1715, Until 03/31/25 at 2044, Routine, Recovery(Phase II-Outpatient)/On Unit(Inpatient), sleep mometasone-formoterol (Dulera 100) 100-5 MCG/ACT inhaler 2 puff 2 puff, Inhalation, 2 times daily, First dose on Evangelina 03/27/25 at 2100, Until Discontinued, Recovery(Phase II-Outpatient)/On Unit(Inpatient) Given 03/31/2025 8:28 AM EST 2 puffs Given 03/30/2025 9:29 PM EST 2 puffs Given 03/30/2025 8:12 AM EST 2 puffs ondansetron (Zofran) injection 4 mg 4 mg, Intravenous, Every 6 hours PRN, Starting on Mon03/27/25 at 1350, Until 03/31/25 at 2044, Routine, Recovery(Phase II-Outpatient)/On Unit(Inpatient), vomiting, nausea ondansetron ODT (Zofran-ODT) disintegrating tablet 4 mg 4 mg, Oral, Every 6 hours PRN, Starting on Evangelina 03/27/25 at 1350, Until Mon03/31/25 at 2044, Routine, Recovery(Phase II-Outpatient)/On Unit(Inpatient), nausea, vomiting sodium chloride 0.9 % flush 10 mL 10 mL, Intravenous, Every 12 hours, First dose on Evangelina 03/27/25 at 1445, Until Discontinued, Routine, Recovery(Phase II-Outpatient)/On Unit(Inpatient) Given 03/31/2025 2:07 PM EST 10 mL Given 03/30/2025 1:46 PM EST 10 mL Given 03/29/2025 2:09 PM EST 10 mL sodium chloride 0.9 % flush 10 mL 10 mL, Intravenous, As needed, Starting on Evangelina 03/27/25 at 1348, Until Mon03/31/25 at 2044, Routine, Recovery(Phase II-Outpatient)/On Unit(Inpatient), line care sodium chloride 0.9 % flush 10 mL 10 mL, Intravenous, Every 12 hours, First dose on Mon03/28/25 at 1800, Until Discontinued, Routine Given 03/31/2025 5:09 PM EST 10 mL Given 03/30/2025 6:03 PM EST 10 mL Given 03/29/2025 5:25 PM EST 10 mL sodium chloride 0.9 % flush 10 mL 10 mL, Intravenous, As needed, Starting on Mon03/28/25 at 1705, Until Mon03/31/25 at 204, Routine, line care Tiotropium Bloxom Monohydrate (Spiriva Respimat) 2.5 MCG/ACT inhaler 2 puff 2 puff, Inhalation, Daily, First dose on Evangelina 03/27/25 at 2100, Until Discontinued, Recovery(Phase II-Outpatient)/On Unit(Inpatient) Given 03/31/2025 8:28 AM EST 2 puffs Given 03/30/2025 8:12 AM EST 2 puffs Given 03/29/2025 9:18 AM EST 2 puffs documented in this encounter Active and Recently Administered Medications Times are shown in EST. Scheduled Medication Order 03/29/2025 03/30/2025 03/31/2025 hydroCHLOROthiazide (HYDRODiuril) tablet 12.5 mg 12.5 mg, Oral, Daily, First dose on 03/29/25 at 1330, Until Discontinued, Routine 1440 (Given - Provider: Jamaal Stahl RN) 0811 (Given - Provider: Jamaal Stahl RN) 0828 (Given - Provider: Jamaal Stahl, RN) lisinopril tablet 20 mg 20 mg, Oral, Daily, First dose on 03/29/25 at 1330, Until Discontinued, Routine 1440 (Given - Provider: Jamaal Stahl RN) 0811 (Given - Provider: Jamaal Stahl RN) 0828 (Given - Provider: Jamaal Stahl RN) mometasone-formoterol (Dulera 100) 100-5 MCG/ACT inhaler 2 puff(Linked Group 1) 2 puff, Inhalation, 2 times daily, First dose on Evangelina 03/27/25 at 2100, Until Discontinued, Recovery(Phase II-Outpatient)/On Unit(Inpatient) 0918 (Given - Provider: Jamaal Stahl RN)2112 (Given - Provider: Jarred Nunez RN) 0812 (Given - Provider: Jamaal Stahl RN)2129 (Given - Provider: Jarred Nunez RN) 0828 (Given - Provider: Jamaal Stahl RN) sodium chloride 0.9 % flush 10 mL(Linked Group 2) 10 mL, Intravenous, Every 12 hours, First dose on Evangelina 03/27/25 at 1445, Until Discontinued, Routine, Recovery(Phase II-Outpatient)/On Unit(Inpatient) 0245 (Canceled Entry - Provider: Jarred Nunez RN)1409 (Given - Provider: Jamaal Stahl RN) 0245 (Canceled Entry - Provider: Jarred Nunez RN)1346 (Given - Provider: Jamaal Stahl RN) 0245 (Canceled Entry - Provider: Jarred Nunez RN)1407 (Given - Provider: Jamaal Stahl RN) sodium chloride 0.9 % flush 10 mL(Linked Group 3) 10 mL, Intravenous, Every 12 hours, First dose on Mon03/28/25 at 1800, Until Discontinued, Routine 0600 (Canceled Entry - Provider: Jarred Nunez RN)1725 (Given - Provider: Jamaal Stahl RN) 0600 (Canceled Entry - Provider: Jarred Nunez RN)1803 (Given - Provider: Jamaal Stahl RN) 0600 (Canceled Entry - Provider: Jarred Nunez RN)1709 (Given - Provider: Jamaal Stahl RN) Tiotropium Bloxom Monohydrate (Spiriva Respimat) 2.5 MCG/ACT inhaler 2 puff(Linked Group 1) 2 puff, Inhalation, Daily, First dose on Evangelina 03/27/25 at 2100, Until Discontinued, Recovery(Phase II-Outpatient)/On Unit(Inpatient) 0918 (Given - Provider: Jamaal Stahl RN) 0812 (Given - Provider: Jamaal Stahl RN) 0828 (Given - Provider: Jamaal Stahl RN) PRN Medication Order 03/29/2025 03/30/2025 03/31/2025 acetaminophen (Tylenol) tablet 650 mg 650 mg, Oral, Every 6 hours PRN, Starting on Evangelina 03/27/25 at 1350, Until Mon03/31/25 at 2044, Routine, Recovery(Phase II-Outpatient)/On Unit(Inpatient), Mild Plus Pain with CPOT DVPRS FLACC PAINAD NPASS NRS Sheikh-Watt Faces score of 1 or greater OR NIPS score 2 or greater 0512 (Given - Provider: Jarred Nunez RN)1243 (Given - Provider: Jamaal Stahl RN)1850 (Given - Provider: Jamaal Stahl RN) 0252 (Given - Provider: Jarred Nunez RN)0929 (Given - Provider: Jamaal Stahl RN)1636 (Given - Provider: Jamaal Stahl RN)2235 (Given - Provider: Jarred Nunez RN) 0525 (Given - Provider: Jarred Nunez RN)1149 (Given - Provider: Jamaal Stahl RN) albuterol 108 (90 Base) MCG/ACT inhaler 2 puff 2 puff, Inhalation, Every 4 hours PRN, Starting on Evangelina 03/27/25 at 1351, Until Mon03/31/25 at 2044, Routine, Recovery(Phase II-Outpatient)/On Unit(Inpatient), shortness of breath, wheezing HYDROcodone-acetaminophen (Sebring) 5-325 MG per tablet 5 mg of hydrocodone 5 mg of hydrocodone, Oral, Every 6 hours PRN, Starting on Evangelina 03/27/25 at 1351, Until Mon03/31/25 at 2043, Recovery(Phase II-Outpatient)/On Unit(Inpatient), Moderate Severe Pain with CPOT score of 3 or greater OR FLACC PAINAD NPASS NRS Sheikh-Watt Faces score of 4 or greater OR DVPRS NIPS score of 5 or greater 0512 (Given - Provider: Jarred Nunez RN)1243 (Given - Provider: Jamaal Stahl RN)1850 (Given - Provider: Jamaal Stahl, RN) 0252 (Given - Provider: Jarred Nunez RN)0929 (Given - Provider: Jamaal Stahl RN)1636 (Given - Provider: Jamaal Stahl RN)2236 (Given - Provider: Jarred Nunez RN) 0525 (Given - Provider: Jarred Nunez RN)1149 (Given - Provider: Jamaal Stahl RN) melatonin tablet 3 mg 3 mg, Oral, Nightly PRN, Starting on Mon03/28/25 at 1715, Until Mon03/31/25 at 4, Routine, Recovery(Phase II-Outpatient)/On Unit(Inpatient), sleep ondansetron (Zofran) injection 4 mg(Linked Group 4) 4 mg, Intravenous, Every 6 hours PRN, Starting on Evangelina 03/27/25 at 1350, Until Mon03/31/25 at 2044, Routine, Recovery(Phase II-Outpatient)/On Unit(Inpatient), vomiting, nausea ondansetron ODT (Zofran-ODT) disintegrating tablet 4 mg(Linked Group 4) 4 mg, Oral, Every 6 hours PRN, Starting on Evangelina 03/27/25 at 1350, Until Mon03/31/25 at 2043, Routine, Recovery(Phase II-Outpatient)/On Unit(Inpatient), nausea, vomiting sodium chloride 0.9 % flush 10 mL(Linked Group 2) 10 mL, Intravenous, As needed, Starting on Evangelina 03/27/25 at 1348, Until Mon03/31/25 at 2043, Routine, Recovery(Phase II-Outpatient)/On Unit(Inpatient), line care sodium chloride 0.9 % flush 10 mL(Linked Group 3) 10 mL, Intravenous, As needed, Starting on Mon03/28/25 at 1705, Until Mon03/31/25 at 2044, Routine, line care Linked Groups Order Group 1: Tiotropium Bloxom Monohydrate (Spiriva Respimat) 2.5 MCG/ACT inhaler 2 puffJump to med 2 puff, Inhalation, Daily, First dose on Mon03/27/25 at 2100, Until Discontinued, Recovery(Phase II-Outpatient)/On Unit(Inpatient) And mometasone-formoterol (Dulera 100) 100-5 MCG/ACT inhaler 2 puffJump to med 2 puff, Inhalation, 2 times daily, First dose on Mon03/27/25 at 2100, Until Discontinued, Recovery(Phase II-Outpatient)/On Unit(Inpatient) Group 2: Insert peripheral IV (CANCELED) Once, On Mon03/27/25 at 1349, For 1 occurrence, Recovery(Phase II- Outpatient)/On Unit(Inpatient) And Saline lock IV (CANCELED) Once, On Mon03/27/25 at 1349, For 1 occurrence, Recovery(Phase II- Outpatient)/On Unit(Inpatient) And sodium chloride 0.9 % flush 10 mLJump to med 10 mL, Intravenous, Every 12 hours, First dose on Mon03/27/25 at 1445, Until Discontinued, Routine, Recovery(Phase II-Outpatient)/On Unit(Inpatient) And sodium chloride 0.9 % flush 10 mLJump to med 10 mL, Intravenous, As needed, Starting on Mon03/27/25 at 1348, Until Mon03/31/25 at 2044, Routine, Recovery(Phase II-Outpatient)/On Unit(Inpatient), line care Group 3: Insert peripheral IV (CANCELED) Once, On Mon03/28/25 at 1706, For 1 occurrence And Saline lock IV (CANCELED) Once, On Mon03/28/25 at 1706, For 1 occurrence And sodium chloride 0.9 % flush 10 mLJump to med 10 mL, Intravenous, Every 12 hours, First dose on Mon03/28/25 at 1800, Until Discontinued, Routine And sodium chloride 0.9 % flush 10 mLJump to med 10 mL, Intravenous, As needed, Starting on Mon03/28/25 at 1705, Until Mon03/31/25 at 2044, Routine, line care Group 4: ondansetron ODT (Zofran-ODT) disintegrating tablet 4 mgJump to med 4 mg, Oral, Every 6 hours PRN, Starting on Evangelina 03/27/25 at 1350, Until Mon03/31/25 at 2044, Routine, Recovery(Phase II-Outpatient)/On Unit(Inpatient), nausea, vomiting Or ondansetron (Zofran) injection 4 mgJump to med 4 mg, Intravenous, Every 6 hours PRN, Starting on Evangelina 03/27/25 at 1350, Until Mon03/31/25 at 2044, Routine, Recovery(Phase II-Outpatient)/On Unit(Inpatient), vomiting, nausea Or ondansetron (Zofran) 4 MG/5ML solution 4 mg (CANCELED) 4 mg, Oral, Every 6 hours PRN, Starting on Evangelina 03/27/25 at 1350, Until Mon03/31/25 at 1111, Routine, Recovery(Phase II-Outpatient)/On Unit(Inpatient), nausea, vomiting documented in this encounter Additional Health Concerns Assessment Noted Time A fall risk assessment has been complete d for the patient 03/12/2025 8:18 AM EST A Body Mass Index follow-up plan has been documented for the patient 03/31/2025 6:29 PM EST documented as of this encounter Care Teams Setter Machine Relationship Specialty Start Date End Date Ortega Roach MD [address] [place] [address] [place] [id number] PCP - General 06/09/22 03/30/25 Stephen Loyd DO [address] [facility] [address] [place] [id number] PCP - General 03/31/25 Ortega Vo MD [address] [facility] [address] [place] [id number] Referring Physician 01/08/25 documented as of this encounter
--- OUTSIDE RECORDS SUMMARY | 2025-04-04 14:20 | XMS_ITS | Encounter Summary ---
Author Organization [facility] Address [address] [place] [address] Care Team Providers Care Hospital Staff Pharmacist Name Role Phone Ortega Roach MD Primary Care Provider [phone] Ortega Vo MD Unavailable [phone] Encounter Details Date Type Department Care Team (Latest Contact Info) Description 03/10/2025 Orders Only [facility] Vascular Interventional Radiology [address] [facility] [address] [place] [address] Anjana Pritchett, SLEEPING ROOM CLEANER, [facility] [address] [place] [address] Encounter for other preprocedural examination (Primary Dx) Social History Tobacco Use Types [...] drink first t christin in the morning (E[employer]LIME SP[employer]ER) to steady your nerves or to get [...] as of this encounter Functional Status * Over the [...] i, RN documented as of this encounter Plan of Treatment Upcoming Encounters Date Type Department Care Team (Late st Contact Info) Description 04/07/2025 1:30 PM EST Appointment [facility] Radiation [address] [facility], [place] [address] Emma Hidalgo MD documented as of this encounter Results * (ABNORMAL) CBC W/O Differential (03/12/2025 8:52 AM EST) WBC Count 10.41(H) 3.70 - 10.30 10*3/uL LAB HEMATOLOGY METHOD 03/12/2025 10:06 AM EST [facility] RBC Count 4.39 3.90 - 5.20 10*6/uL LAB HEMATOLOGY METHOD 03/12/2025 10:06 AM EST [facility] HGB 13.0 11.2 - 15.7 g/dL LAB HEMATOLOGY METHOD 03/12/2025 10:06 AM EST [facility] HCT 39.8 34.0 - 45.0 % LAB HEMATOLOGY METHOD 03/12/2025 10:06 AM EST [facility] Platelet Count 585(H) 155 - 369 10*3/uL LAB HEMATOLOGY METHOD 03/12/2025 10:06 AM EST [facility] MCV 91 79 - 98 fL LAB HEMATOLOGY METHOD 03/12/2025 10:06 AM EST [facility] MCH 29.6 26.0 - 32.0 pg LAB HEMATOLOGY METHOD 03/12/2025 10:06 AM EST [facility] MCHC 32.7 30.7 - 35.5 g/dL LAB HEMATOLOGY METHOD 03/12/2025 10:06 AM EST [facility] RDW 12.6 11.5 - 14.5 % LAB HEMATOLOGY METHOD 03/12/2025 10:06 AM EST [facility] MPV 9.8 8.8 - 12.5 fL LAB HEMATOLOGY METHOD 03/12/2025 10:06 AM EST [facility] nRBC 0.0 <=0.0 per 100 WBCs LAB HEMATOLOGY METHOD 03/12/2025 10:06 AM EST [facility] Blood Venous blood specimen / Unknown Venipuncture / Unknown 03/12/2025 8:52 AM EST 03/12/2025 8:52 AM EST Anjana Pritchett SLEEPING ROOM CLEANER, DNP LAB BLOOD ORDERABLES Fin al Result [facility] [address] [place] [address] * Comprehensive Metabolic Panel, Plasma (03/12/2025 8:52 AM EST) Glucose, Plasma 94 74 - 99 mg/dL 03/12/2025 10:18 AM EST [facility] BUN, Plasma 10 8 - 23 mg/dL 03/12/2025 10:18 AM EST [facility] Creatinine, Plasma 0.80 0.60 - 1.10 mg/dL 03/12/2025 10:18 AM EST [facility] BUN/Creatinine Ratio 13 03/12/2025 10:18 AM EST [facility] Sodium, Plasma 140 136 - 145 mmol/L 03/12/2025 10:18 AM EST [facility] Potassium, Plasma 4.0 3.6 - 4.9 mmol/L 03/12/2025 10:18 AM EST [facility] Chloride, Plasma 102 97 - 107 mmol/L 03/12/2025 10:18 AM EST [facility] CO2, Plasma 26 22 - 29 mmol/L 03/12/2025 10:18 AM EST [facility] Anion Gap 12 6 - 16 mmol/L 03/12/2025 10:18 AM EST [facility] Total Calcium, Plasma 9.4 8.9 - 10.2 mg/dL 03/12/2025 10:18 AM EST [facility] Total Protein 7.1 6.3 - 7.9 g/dL 03/12/2025 10:18 AM EST [facility] Albumin, Plasma 4.5 3.5 - 5.2 g/dL 03/12/2025 10:18 AM EST [facility] AST, Plasma 23 10 - 35 U/L 03/12/2025 10:18 AM EST [facility] ALT, Plasma 12 10 - 35 U/L 03/12/2025 10:18 AM EST [facility] Alkaline Phosphatase, Plasma 96 46 - 142 U/L 03/12/2025 10:18 AM EST [facility] Total Bilirubin, Plasma 0.3 0.2 - 1.1 mg/dL 03/12/2025 10:18 AM EST [facility] eGFRcr 78.9 mL/min/1.7 3m*2 03/12/2025 10:18 AM EST [facility] Comment:Reported eGFRcr in m L/min/1.73m2 is based the CKD-EPI 2020 equation that does not use a race coefficient. Blood Venous blood specimen / Unknown Venipuncture / Unknown 03/12/2025 8:52 AM EST 03/12/2025 8:52 AM EST us Anjana Pritchett SLEEPING ROOM CLEANER, DNP LAB BLOOD ORDERABLES Fin al Result Performing Organization Address [facility] Co de Phone Number [facility] [address] [place] [address] * Prothrombin Time/INR (03/12/2025 8:52 AM EST) Prothrombin Time 13.3 12.0 - 14.3 sec LAB COAGULATION METHOD 03/12/2025 10:15 AM EST [facility] INR 1.0 0.9 - 1.1 LAB COAGULATION METHOD 03/12/2025 10:15 AM EST [facility] Blood Venous blood specimen / Unknown Venipuncture / Unknown 03/12/2025 8:52 AM EST 03/12/2025 8:52 AM EST Narrative [facility] - 03/12/2025 10:15 AM EST OPTIMAL INR RANGES FOR PATIENT ON ORAL ANTICOAGULANT THERAPY Prevention of venous thromboembolism INR 2.0 to 3.0 In patients with heart disease: Atrial fibrillation INR 2.0 to 3.0 Valvular heart disease INR 2.0 to 3.0 Tissue heart valves INR 2.0 to 3.0 Mechanical prosthetic valves INR 2.5 to 3.5 Prevention of recurrent [place] INR 2.5 to 3.5 Anjana Pritchett APRN, JOSI LAB BLOOD ORDERABLES Fin al Result Performing Organization Address City/[facility] Co de Phone Number [facility] [address] [place] [address] documented in this encounter Visit Diagnoses Diagnosis Encounter for other preprocedural examination- Primary documented in this encounter Additional Health Concerns Assessment Noted Time A fall risk assessment has been complete d for the patient 02/24/2025 10:05 AM EST A Body Mass Index follow-up plan has been documented for the patient 01/10/2025 3:26 PM EDT documented as of this encounter Care Teams Hospital Staff Pharmacist Relationship Specialty Start Date End Date Ortega Roach MD [address] [place] [id number] PCP - General 06/09/22 03/30/25 Ortega Vo MD [address] [place] [address] [place] [address] Referring Physician 01/08/25 documented as of this encounter
--- OUTSIDE RECORDS SUMMARY | 2025-04-04 14:20 | XMS_ITS | Encounter Summary ---
Author Organization [facility] [place] [facility] Address [address] [place] [address] Care Team Providers Care Marine Firer Name Role Phone Ortega Roach MD Primary Care Provider [phone] Ortega Vo MD Unavailable [phone] Encounter Details Date Type Department Care Team (Latest Contact Info) Description 02/24/2025 Travel Social History Tobacco Use Types Packs/Day Years [...] drink first t christin in the morning (EYE-FIRE CAPTAIN) to steady your nerves or to get [...] as of this encounter Functional Status * AUDIT-C Score [...] Author No Risk Indicated 02/24/2025 10:04 AM Angelita Orlando * Question Answer Date of Assessment Author 1. Wish to be (Past 1 Month) No 025 10:04 AM Angelita Deleon 2. Non-Specific Active Suici candy Thoughts (Past 1 Month) No 02/24/2025 10:04 AM Andrea Deleon 6. Suicidal Behavior (Lifetime) No 10:04 AM Angelita Deleon documented as of this encounter Plan of Treatment Upcoming Encounters Date Type Department Care Team (Late st Contact Info) Description 04/07/2025 1:30 PM EST Appointment [facility] Radiation [id number] [place] [address] Emma Hidalgo MD documented as of this encounter Visit Diagnoses Not on filedocumented in this encounter Additional Health Concerns Assessment Noted Time A fall risk assessment has been complete d for the patient 02/24/2025 10:05 AM EST A Body Mass Index follow-up plan has been documented for the patient 01/10/2025 3:26 PM EDT documented as of this encounter Care Teams Marine Firer Relationship Specialty Start Date End Date Ortega Roach MD [address] [facility] [place] [id number] PCP - General 06/09/22 03/30/25 Ortega Vo MD [address] [place] [address] [place] [address] Referring Physician 01/08/25 documented as of this encounter
--- OUTSIDE RECORDS SUMMARY | 2025-04-04 14:20 | XMS_ITS | Encounter Summary ---
Author Organization [facility] Address [address] [place] [address] Care Team Providers Care Retail Shift Leader Name Role Phone Ortega Roach MD Primary Care Provider [phone] Ortega Vo MD Unavailable [phone] Encounter Details Date Type Department Care Team (Latest Contact Info) Description 03/28/2025 Travel Social History Tobacco Use Types Packs/Day [...] drink first t christin in the morning (EYE-SNOWBOARDING INSTRUCTOR) to steady your nerves or to get [...] as of this encounter Functional Status * Question Answer Date of Assessment Author Precautions Environmental surveillance 03/28/2025 10: 00 PM EST Jarred Nunez RN * Calculated C-SSRS Risk Score (Lifetime/Recent) Answer Date of Assessment Author No Risk Indicated 03/28/2025 8:00 PM EST Jarred Cadet RN * Question Answer Date of Assessment Author 1. Wish to be (Past 1 Month) No 03/28/2025 8:00 PM EST Al Nunez RN 2. Non-Specific Active Suici candy Thoughts (Past 1 Month) No 03/28/2025 8:00 PM EST Moshe Nunez RN 6. Suicidal Behavior (Lifetime) No 8:00 PM Jarred Allen RN documented as of this encounter Mental Status * Question Answer Entry Date Author Precautions Environmental surveillance 03/28/2025 10: 00 PM EST Jarred Nunez RN documented in this encounter Plan of Treatment Upcoming Encounters Date Type Department Care Team (Late st Contact Info) Description 04/07/2025 1:30 PM EST Appointment [facility] Radiation [id number] [place] [address] Emma Hidalgo MD documented as of this encounter Visit Diagnoses Not on filedocumented in this encounter Additional Health Concerns Assessment Noted Time A fall risk assessment has been complete d for the patient 03/12/2025 8:18 AM EST A Body Mass Index follow-up plan has been documented for the patient 03/31/2025 6:29 PM EST documented as of this encounter Care Teams Retail Shift Leader Relationship Specialty Start Date End Date Ortega Roach MD [address] [facility] [place] [address] PCP - General 06/09/22 03/30/25 Ortega Vo MD [address] [place] [address] Referring Physician 01/08/25 documented as of this encounter
--- OUTSIDE RECORDS SUMMARY | 2025-04-04 14:20 | XMS_ITS | Encounter Summary ---
Author Organization [facility] Address [address] [place] [address] Care Team Providers Care Hotel Houseman Name Role Phone Ortega Roach MD Primary Care Provider [phone] Ortega Vo MD Unavailable [phone] Stephen Loyd DO Primary Care Provider [phone] Jaqueline Sewell LPN Unavailable Unavailable Encounter Details Date Type Department Care Team (Late st Contact Info) Description 05/24/2022 Orders Only External Location [address] [place] [address] Paul Arango MD [address] [address] Social History Tobacco Use Types Packs/Day Years Used Date Smoking Tobacco: Never Assessed Comments Unknown Sex and Gender Information Value Date Recorded Sex Assigned at Female 06/16/2022 1:16 PM EST Legal Sex Female 8:50 PM EDT Gender Identity Female 06/16/2022 1:16 PM EST Sexual Orientation Straight 06/16/2022 1: 16 PM EST documented as of this encounter Plan of Treatment Upcoming Encounters Date Type Department Care Team (Late Contact Info) Description 04/07/2025 1:30 PM EST Appointment [facility] CC Radiation [address] [facility] [id number] [place] [address] Emma Hidalgo MD documented as of this encounter Procedures Procedure Name Priority Date/Time Associated Diagnosis Comments CT OUTSIDE IMAGES 05/24/2022 6:31 PM EST documented in this encounter Results * CT OUTSIDE IMAGES (05/24/2022 6:31 PM EST) Anatomical Region Laterality Modality Computed Tomogra phy 05/24/2022 6:31 PM EST Paul Arango MD IMG CT PROCEDURES Final Resu lt documented in this encounter Visit Diagnoses Not on filedocumented in this encounter Care Teams Hotel Houseman Relationship Specialty Start Date End Date Ortega Roach MD [address] [place] [address] [place] [address] PCP - General 06/09/22 03/30/25 Stephen Loyd DO [address] [facility] [address] [place] [address] PCP - General 03/31/25 Ortega Vo MD [address] [facility] [address] [place] [address] Referring Physician 01/08/25 Jaqueline Sewell LPN None None TCM Nurse 04/01/25 documented as of this encounter
--- OUTSIDE RECORDS SUMMARY | 2025-04-04 14:20 | XMS_ITS | Encounter Summary ---
Author Organization [facility] Address [address] [place] [address] Care Team Providers Care Point Of Care Specialist Name Role Phone Ortega Roach MD Primary Care Provider [phone] Ortega Vo MD Unavailable [phone] Stephen Loyd DO Primary Care Provider [phone] Jaqueline Sewell LPN Unavailable Unavailable Encounter Details Date Type Department Care Team (Late st Contact Info) Description 12/06/2018 Orders Only External Location [address] [place] [id number] Provider, External Social History Tobacco Use Types Packs/Day Years [...] PM EST Appointment [facility] CC Radiation [address] [facility] [id number] [place] [address] Emma Hidalgo MD documented as of this encounter Procedures Procedure Name Priority Date/Time Associated Diagnosis Comments XR OUTSIDE IMAGES 12/06/2018 11:11 AM EDT documented in this encounter Results * XR OUTSIDE IMAGES (12/06/2018 11:11 AM EDT) Anatomical Region Laterality Modality Radiographic Hope ging 12/06/2018 11:1 1 AM EDT us External Provider IMG XR PROCEDURES Final Result documented in this encounter Visit Diagnoses Not on filedocumented in this encounter Care Teams Point Of Care Specialist Relationship Specialty Start Date End Date Ortega Roach MD [address] [place] [address] PCP - General 06/09/22 03/30/25 Stephen Loyd DO [address] [facility] [address] [place] [address] PCP - General 03/31/25 Ortega Vo MD 1210 [facility] [address] [place] [address] Referring Physician 01/08/25 Jaqueline Sewell LPN None None TCM Nurse 04/01/25 documented as of this encounter
--- OUTSIDE RECORDS SUMMARY | 2025-04-04 14:20 | XMS_ITS | Encounter Summary ---
Author Organization [facility] Address [address] [place] [address] Care Team Providers Care Trimmer And Borer Machine Operator Name Role Phone Ortega Roach MD Primary Care Provider [phone] Ortega Vo MD Unavailable [phone] Encounter Details Date Type Department Care Team (Late st Contact Info) Description 02/27/2025 Orders Only Pav CC Head, Neck & Respiratory [address] [facility], [address] [place] [address] Sharifa Braden, RN None None Primary adenocarcinoma of lower lobe of right [...] drink first t christin in the morning (EYE-GARDEN LABOURER) to steady your nerves or to get [...] Appointment [facility] CC Radiation [id number] [place] [address] Emma Hidalgo MD documented as of this [...] documented as of this encounter Care Teams Trimmer And Borer Machine Operator Relationship Specialty Start Date End Date Ortega Roach MD [address] [place] [address] [place] [address] PCP - General 06/09/22 03/30/25 Ortega Vo MD [address] [place] [address] [address] [place] [address] Referring Physician 01/08/25 documented as of this encounter
--- OUTSIDE RECORDS SUMMARY | 2025-04-04 14:20 | XMS_ITS | Encounter Summary ---
Author Organization [facility] Address [address] [place] [address] Care Team Providers Care Spool Hauler Name Role Phone Ortega Roach MD Primary Care Provider [phone] Ortega Vo MD Unavailable [phone] Encounter Details Date Type Department Care Team (Latest Contact Info) Description 03/29/2025 Travel Social History Tobacco Use Types Packs/Day [...] drink first t christin in the morning (EYE-DJANGO DEVELOPER) to steady your nerves or to get [...] Date of Assessment Author Precautions Environmental surveillance 03/29/2025 10: 00 PM EST Jarred Nunez RN * Calculated C-SSRS Risk Score (Lifetime/Recent) Answer Date of Assessment Author No Risk Indicated 03/29/2025 8:00 PM EST Jarred Cadet RN * Question Answer Date of Assessment Author 1. Wish to be (Past 1 Month) No 03/29/2025 8:00 PM EST Al Nunez RN 2. Non-Specific Active Suici candy Thoughts (Past 1 Month) No 03/29/2025 8:00 PM EST Moshe Nunez RN 6. Suicidal Behavior (Lifetime) No 8:00 PM EST Jarred Nunez RN documented as of this encounter Mental Status * Question Answer Entry Date Author Precautions Environmental surveillance 03/29/2025 10: 00 PM EST Jarred Nunez RN documented in this encounter Plan of Treatment Upcoming Encounters Date Type Department Care Team (Late st Contact Info) Description 04/07/2025 1:30 PM EST Appointment [facility] Radiation [id number] [place] [address] Emma Hidalgo MD documented as of this encounter Visit Diagnoses Not on filedocumented in this encounter Additional Health Concerns Assessment Noted Time A fall risk assessment has been complete d for the patient 03/12/2025 8:18 AM EST A Body Mass Index follow-up plan has been documented for the patient 03/31/2025 6:29 PM EST documented as of this encounter Care Teams Spool Hauler Relationship Specialty Start Date End Date Ortega Roach MD [address] [facility] [place] [address] PCP - General 06/09/22 03/30/25 Ortega Vo MD [address] [place] [address] Referring Physician 01/08/25 documented as of this encounter
--- OUTSIDE RECORDS SUMMARY | 2025-04-04 14:20 | XMS_ITS ---
Author Organization [facility] Address [address] [place] [address] Care Team Providers Care President Practicing Urologist Name Role Phone Ortega Vo MD Unavailable [phone] Stephen Loyd DO Primary Care Provider [phone] Jaqueline Sewell LPN Unavailable Unavailable Transitional Care Management Status:Active (Active) Program category:Transitional Care Management - [facility] Start date:04/01/2025 Enrollment date:04/02/2025 Enrollment reason:Identified using hospital discharge data Overview This episode type is for outpatient care managers enrolling patients in the [facility] Transitional Care Management program. Case Team Name Relationship Phone Jaqueline Sewell LPN(Responsible Staff) TCM Nurse Continued Care and Services Coordination
--- OUTSIDE RECORDS SUMMARY | 2025-04-04 14:20 | XMS_ITS | Encounter Summary ---
Author Organization [facility] Address [address] [place] [address] Care Team Providers Care Tortilla Maker Name Role Phone Ortega Roach MD Primary Care Provider [phone] Ortega Vo MD Unavailable [phone] Encounter Details Date Type Department Care Team (Latest Contact Info) Description 02/05/2025 Travel Social History Tobacco Use Types Packs/Day [...] drink first t christin in the morning (EYE-CUSTOMER SUPPORT ADVISOR) to steady your nerves or to get [...] Appointment [facility] CC Radiation [id number] [place] [address] Emma Hidalgo MD documented as of this encounter Visit Diagnoses Not on filedocumented in this encounter Additional Health Concerns Assessment Noted Time A fall risk assessment has been complete d for the patient 01/08/2025 12:59 PM EDT A Body Mass Index follow-up plan has been documented for the patient 01/10/2025 3:26 PM EDT documented as of this encounter Care Teams Tortilla Maker Relationship Specialty Start Date End Date Ortega Roach MD [address] [place] [address] PCP - General 06/09/22 03/30/25 Ortega Vo MD [address] [place] [address] [address] [place] [address] Referring Physician 01/08/25 documented as of this encounter
--- OUTSIDE RECORDS SUMMARY | 2025-04-04 14:21 | XMS_ITS | Clinical Summary ---
Author Organization [facility] Address [address] [place] [address] Care Team Providers Care Building Custodian Name Role Phone Ortega Vo MD Unavailable [phone] Stephen Loyd DO Primary Care Provider [phone] Jaqueline Sewell WRECKING CRANE ENGINE OPERATOR Unavailable Unavailable Allergies Active Allergy Reactions Criticality Noted Date Comments Atorvastatin Other - please docum ent in the comment field High 09/27/2023 Made her feel bad Medications albuterol 108 (90 Base) MCG/ACT inhaler 2 puffs 4 times a day as needed. Patient only uses as needed . 3 Active Trelegy Ellipta 100-62.5-25 MCG/ACT aerosol powder Inhale 1 puff daily. 3 Active HYDROcodone-ac etaminophen (Grayson) 10-325 MG tablet 1 tablet 3 times a day as needed for severe pain. Active lisinopril-hyd roCHLOROthiazi de 20-12.5 MG tablet Take 1 tablet by mouth daily. 4 Active ramelteon (Rozerem) 8 MG tablet Take 1 tablet by mouth nightly. 5 Active MELATONIN PO Take by mouth. 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 08/23/2022 Overview (08/24/2022): 08/23/2022: s/p bronchoscopy, right robotic lower lobectomy, mediastinal lymph node dissection, intercostal nerve blocks Right chest tube in place Monitor chest tube output Pain control Pathology pending Tobacco use disorder 06/09/2022 Overview (08/24/2022): Cessation counseling if patient agreeable Complicates recovery Hypertension Overview (08/24/2022): Holding home anti-HTN in setting of hypotension COPD (chronic obstructive pulmonary disease) Overview (08/24/2022): Resume home meds/nebs as appropriate Acute blood loss anemia Overview (08/25/2022): Monitor labs Transfuse as needed Received 1u PRBC on 08/24, 2u PRBC overnight Hemorrhagic shock Overview (08/24/2022): Closely monitor chest tube output Hypotension improved after receiving 1u PRBC Trend labs Transfuse as needed Electrolyte abnormality Overview (08/24/2022): Hypocalcemia Monitor - Replete per protocol Resolved Problems Problem Noted Date Diagnosed Date Resolved Date Pneumothorax after biopsy 07/12/2022 Pneumothorax of right lung after biopsy 07/12/2022 08/24/2022 Lactic acidosis 08/25/2022 Overview (08/24/2022): Trend labs, improving Volume resuscitation as needed Postoperative pain Overview (08/24/2022): Multimodal pain control Encounters Date Type Department Care Team Description 04/04/2025 Telephone [facility]ck [facility] Respiratory [address] [facility], [address]nd [place] [address] Dereje Knight MD 04/02/2025 Patient Outreach POPULATION [address], [address] [place] [address] Jaqueline Sewell, WRECKING CRANE ENGINE OPERATOR 04/01/2025 Patient Outreach POPULATION [address], [address] [place] [address] Jaqueline Sewell, WRECKING CRANE ENGINE OPERATOR [facility] 03/31/2025 Orders Only [facility] Head[facility]ck [facility] Respiratory [address] [facility], [address] [place] [address] Sharifa Braden RN 03/31/2025 Orders Only [facility]ck [facility] Respiratory [address] [facility], [address] [place] [address] Sharifa Braden RN Primary adenocarcinoma of lower lobe of right lung (Primary Dx) 03/31/2025 Travel 03/30/2025 Travel 03/29/2025 Travel 03/28/2025 Travel 03/27/2025 1:44 PM EST - 03/31/2025 6:44 PM EST Hospital Encounter [facility] A Inpatient [address] [place] [address] Parth Cortez MD Saari, Haleigh D, Ranjan Daniel MD Cox, Beth, RN Postprocedural pneumothorax (Primary Dx); Chronic obstructive pulmonary disease, unspecified COPD type (CMS/HCC) Discharge Disposition: Home or Self Care 03/27/2025 12:41 PM EST - 03/27/2025 1:02 PM EST Hospital Encounter [facility] Radiology [address] [place] [address] Discharge Disposition: Home or Self Care 03/27/2025 10:44 AM EST - 03/27/2025 12:40 PM EST Hospital Encounter [facility] Radiology [address] [place] [address] Discharge Disposition: Home or Self Care 03/27/2025 8:20 AM EST - 03/27/2025 10:43 AM EST Hospital Encounter [facility] Interventional Radiology [address] [place] [address] Bang Stone, Sarina Pete RN Nodule of upper lobe of right lung Discharge Disposition: Home or Self Care 03/27/2025 Travel 03/12/2025 8:00 AM EST Office Visit [facility] Vascular Interventional Radiology [address] [place] [address] Anjana Pritchett, DEEP, DNP Primary adenocarcinoma of lower lobe of right lung (Primary Dx); Nodule of upper lobe of right lung 03/12/2025 Travel 03/10/2025 Orders Only [facility] Vascular Interventional Radiology [address] [place] [address] Anjana Pritchett, DEEP, DNP Encounter for other preprocedural examination (Primary Dx) 02/27/2025 Orders Only [facility] Head[facility] Neck [facility] Respiratory [address] [facility], [address] [place] [address] Sharifa Braden RN Primary adenocarcinoma of lower lobe of right lung (Primary Dx) 02/24/2025 10:00 AM EST Office Visit [facility] Head[facility]ck [facility] Respiratory [address] [facility], [address] [place] [address] Dereje Knight MD Nodule of upper lobe of right lung (Primary Dx) 02/24/2025 Travel 02/05/2025 1:00 PM EDT Office Visit [facility] Neck [facility] Respiratory [address] [facility], [address] [place] [address] Radha Greenfield PA Malignant neoplasm of lower lobe of right lung (Primary Dx) 02/05/2025 9:43 AM EDT - 02/05/2025 11:59 PM EDT Hospital Encounter [facility] PET Scan [address] [place] [address] Discharge Disposition: Home or Self Care 02/05/2025 9:43 AM EDT - 02/05/2025 11:59 PM EDT Hospital Encounter [facility] PET Scan [address] [place] [address] Malignant neoplasm of lower lobe of right lung Discharge Disposition: Home or Self Care 02/05/2025 Travel 01/16/2025 Social Work Psych Oncology [address] [place] [address] Barbara Driver 01/14/2025 Telephone [facility] [address] [facility], [address]nd [place] [address] Lea Segura RN 01/08/2025 1:30 PM EDT Office Visit [facility] Head[facility] Neck [facility] Respiratory [address] [facility], [address]nd [place] [address] Miriam Wellington MD Malignant neoplasm of lower lobe of right lung (CMS/HCC) 01/08/2025 12:10 PM EDT - 01/08/2025 11:59 PM EDT Hospital Encounter [facility] Radiology [address] [place] [address] Malignant neoplasm of lower lobe of right lung (CMS/HCC) Discharge Disposition: Home or Self Care 01/08/2025 Travel from Last 3 Months Family History Medical History Relation Name Comments Cancer Brother No Known Problems Father No Known Problems Mother Heart disease Other Breast cancer Sister Diabetes Sister Anesthesia problems Neg Hx Malig Hyperthermia Neg Hx Relation Name Status Comments Brother Father Mother Other Sister Social History Tobacco Use Types Packs/Day Years [...] the money to buy more. Never true 04/02/20 25 Within the past 12 months, t he food you bought just didn't last and you didn't have money to get more. Never true 04/02/2025 PRAPARE - Transportation Answer Date Re corded In the past 12 months, has l ack of transportation kept you from medical appointments or from getting medications? No 03/17 In the past 12 months, has l ack of transportation kept you from meetings, work, or from getting things needed for daily living? No 04/02/2025 Housing Stability Vital Sign Answer Nik e Recorded In the last 12 months, was t here a time when you were not able to pay the mortgage or rent on time? No 04/02/2025 In the past 12 months, how m any times have you moved where you were living? 0 04/02/2025 At any time in the past 12 m [facility], were you homeless or living in a chcf (including now)? No 04/02/2025 [facility] Utilities Answer Date Recorded In the past 12 months has th e [employer], gas, oil, or water [employer] threatened to shut off services in your home? No 04/02/2025 CAGE ASSESSMENT Answer Date Recorded Cage unable [...] drink first t christin in the morning (EYE-CHEMICAL ANALYTICAL SAMPLER) to steady your nerves or to get [...] Orientation Straight 06/16/2022 1: 16 PM EST Last Filed Vital Signs Vital Sign Reading [...] Mass Index 23.25 03/27/2025 7:21 PM EST Plan of Treatment Upcoming Encounters Date Type Department Care Team (Late st Contact Info) Description 04/07/2025 1:30 PM EST Appointment [facility] Radiation [address] [facility]. [id number] [place] [address] Emma Hidalgo MD Health Maintenance Due Date Last Done Comments [facility]-Bone Density Scan 1955 [facility]-Hepatitis C Screening 1955 [facility]-Medicare Annual Wellness (AWV) 1955 [facility]-/Child/Adol SDOH Screenings 1955 [id number] Vaccine (#1) 05/30/1956 [facility]-Pneumococcal Vaccine: 50+ Years (1 of 2 - PCV) 1972 [facility]-Zoster Vaccines (1 of 2) 1972 CT Colonography 1998 Colonoscopy 1998 FIT-DNA 1998 FIT 1998 FOBT 1998 Sigmoidoscopy 1998 [facility]-Colorectal Cancer Screening 1998 [facility]-Breast Cancer Screening 11/28/2003 [facility]-RSV Vaccine: 60+ Years or (1 - Risk 50-74 years 1-dose series) 11/28/2003 [facility]-Influenza Vaccine (#1) 2024 [facility]- SDOH Screenings 09/29/2025 [facility]-Adult SDOH Screenings 09/29/2025 03/31/2025 [facility]-Depression Screening 03/12/2026 03/12/2025 [facility]-DTaP,Tdap,and Td Vaccines (2 - Td or Tdap) 05/24/2032 05/24/2022, 06/24/1996 [facility]-Lung Cancer Screening Discontinued 2024, 02/05/2025, 01/08/2025, Additional history exists HPV Vaccines (No Doses Required) Completed [facility]-HIB Vaccines Aged Out No longer e ligible based on patient's age to complete this topic [facility]-Hepatitis A Vaccines Aged Out No longer eligible based on patient's age to complete this topic [facility]-IPV Vaccines Aged Out No longer e ligible based on patient's age to complete this topic [facility]-Rotavirus Vaccines Aged Out No lo nger eligible based on patient's age to complete this topic Procedures Procedure Name Priority Date/Time Associated Diagnosis [...] 1 VIEW Timed 03/29/2025 4:47 AM EST BASIC METABOLIC PANEL, PLASMA Routine 03/29/2025 12:27 AM EST CBC WITH AUTO DIFFERENTIAL Routine 03/29/2025 12:27 AM EST XR CHEST [...] CORE BIOPSY Routine 03/27/2025 10:04 AM EST PROTHROMBIN TIME(PT) / INR Routine 03/12/2025 8:52 AM EST Encounter for other preprocedural examination COMPREHENSIVE METABOLIC PANEL, PLASMA Routine 03/12/2025 8:52 AM EST Encounter for other preprocedural examination CBC W/O DIFFERENTIAL Routine 03/12/2025 8:52 AM EST Encounter for other preprocedural examination PET/CT FDG SKULL BASE TO MID THIGH Routine 02/05/2025 11:00 AM EDT Malignant neoplasm of lower lobe of right lung CT CHEST WO IV CONTRAST Routine 01/08/2025 12:38 PM EDT Malignant neoplasm of lower lobe of right lung (CMS/HCC) from Last 3 Months Results * XR Chest 1 View (03/31/2025 5:29 PM EST) Only the most recent of12 resultswithin the time period is included. Anatomical Region Laterality Modality Chest Digital Radiogra [...] Rima Murdock MD on 03/31/2025 5:43 PM Stephen Stern WATER TAXI BOAT MATE IMG XR PROCEDURES Final Res ult * (ABNORMAL) CBC and Differential (03/29/2025 12:27 AM EST) WBC Count 13.45(H) 3.70 - 10.30 10*3/uL LAB HEMATOLOGY METHOD 03/29/2025 12:[address] [facility] RBC Count 4.39 3.90 - 5.20 10*6/uL LAB HEMATOLOGY METHOD 03/29/2025 12:[address] [facility] HGB 13.0 11.2 - 15.7 g/dL LAB HEMATOLOGY METHOD 03/29/2025 12:[address] [facility] HCT 39.4 34.0 - 45.0 % LAB HEMATOLOGY METHOD 03/29/2025 12:[address] [facility] Platelet Count 559(H) 155 - 369 10*3/uL LAB HEMATOLOGY METHOD 03/29/2025 12:[address] [facility] MCV 90 79 - 98 fL LAB HEMATOLOGY METHOD 03/29/2025 12:[address] [facility] MCH 29.6 26.0 - 32.0 pg LAB HEMATOLOGY METHOD 03/29/2025 12:[address] [facility] MCHC 33.0 30.7 - 35.5 g/dL LAB HEMATOLOGY METHOD 03/29/2025 12:[address] [facility] RDW 12.5 11.5 - 14.5 % LAB HEMATOLOGY METHOD 03/29/2025 12:[address] [facility] MPV 9.3 8.8 - 12.5 fL LAB HEMATOLOGY METHOD 03/29/2025 12:[address] [facility] nRBC 0.0 <=0.0 per 100 WBCs LAB HEMATOLOGY METHOD 03/29/2025 12:[address] [facility] Differential Type Automated LAB HEMATOLOGY METHOD 03/29/2025 12:[address] [facility] Neutrophils % 59 % LAB HEMATOLOGY METHOD 03/29/2025 12:[address] [facility] Lymphocytes % 27 % LAB HEMATOLOGY METHOD 03/29/2025 12:[address] [facility] Monocytes % 10 % LAB HEMATOLOGY METHOD 03/29/2025 12:[address] [facility] Eosinophils % 3 % LAB HEMATOLOGY METHOD 03/29/2025 12:[address] [facility] Basophils % 1 % LAB HEMATOLOGY METHOD 03/29/2025 12:[address] [facility] Immature Granulocytes % 0 % LAB HEMATOLOGY METHOD 03/29/2025 12:[address] [facility] Neutrophils Absolute 7.98(H) 1.60 - 6.10 10*3/uL LAB HEMATOLOGY METHOD 03/29/2025 12:[address] [facility] Lymphocytes Absolute 3.58 1.20 - 3.90 10*3/uL LAB HEMATOLOGY METHOD 03/29/2025 12:[address] [facility] Monocytes Absolute 1.34(H) 0.30 - 0.90 10*3/uL LAB HEMATOLOGY METHOD 03/29/2025 12:[address] [facility] Eosinophils Absolute 0.39 0.00 - 0.50 10*3/uL LAB HEMATOLOGY METHOD 03/29/2025 12:[address] [facility] Basophils Absolute 0.11(H) 0.00 - 0.10 10*3/uL LAB HEMATOLOGY METHOD 03/29/2025 12:[address] [facility] Immature Granulocytes Absolute 0.05 0.00 - 0.06 10*3/uL LAB HEMATOLOGY METHOD 03/29/2025 12:[address] [facility] Blood Venous blood specimen / Unknown Venipuncture / Unknown 03/29/2025 12:27 AM EST 03/29/2025 12:[address] [facility] - 03/29/2025 12:46 AM EST Therapeutic decision making should be based on absolute values, rather than percentages. Pooja Jimenez WATER TAXI BOAT MATE, DNP LAB BLOOD ORD ERABLES Final Result [facility] [address] [place] [address] * (ABNORMAL) Basic metabolic panel (03/29/2025 12:27 AM EST) Glucose, Plasma 93 74 - 99 mg/dL 03/29/2025 1:[address] [facility] BUN, Plasma 14 8 - 23 mg/dL 03/29/2025 1:[address] [facility] Creatinine, Plasma 0.71 0.60 - 1.10 mg/dL 03/29/2025 1:[address] [facility] BUN/Creatinine Ratio 20 03/29/2025 1:[address] [facility] Sodium, Plasma 139 136 - 145 mmol/L 03/29/2025 1:[address] [facility] Potassium, Plasma 5.0(H) 3.6 - 4.9 mmol/L 03/29/2025 1:[address] [facility] Chloride, Plasma 103 97 - 107 mmol/L 03/29/2025 1:[address] [facility] CO2, Plasma 25 22 - 29 mmol/L 03/29/2025 1:[address] [facility] Anion Gap 11 6 - 16 mmol/L 03/29/2025 1:[address] [facility] Total Calcium, Plasma 9.1 8.9 - 10.2 mg/dL 03/29/2025 1:[address] [facility] eGFRcr 91.0 mL/min/1.7 3m*2 03/29/2025 1:[address] [facility] Comment:Reported eGFRcr in m L/min/1.73m2 is based the CKD-EPI 2020 equation that does not use a race coefficient. Blood Venous blood specimen / Unknown Venipuncture / Unknown 03/29/2025 12:27 AM EST 03/29/2025 12:35 AM EST Pooja iJmenez WATER TAXI BOAT MATE, DNP LAB BLOOD ORD ERABLES Final Result [facility] [address] [place] [address] * CT Guided Chest Tube Right (03/27/2025 1:35 PM EST) Anatomical Region Laterality Modality Chest Right Computed Tomogra phy Impressions 03/27/2025 4:[address]-guided right 8 Tongan chest tube placement for large pneumothorax. Moderate [...] who presents for chest tube placement. TECHNIQUE: Mess Attendant: Parth Cortez MD Secondary Sessions Clerk: None Rad Dose: 490 mGy-cm DLP Medications: Continuous physiologic monitoring provided by a qualified healthcare professional. 1% Lidocaine SQ. Antibiotics: None Case Time out: 132 close out: 1335 Procedure: After discussion of [...] who presents for chest tube placement. TECHNIQUE: Mess Attendant: Parth Cortez MD Secondary Sessions Clerk: None Rad Dose: 490 mGy-cm DLP Medications: Continuous physiologic monitoring provided by a qualifiedhealthcare professional. 1% Lidocaine SQ. Antibiotics: None Case Time out: 1320 close out: 1335 Procedure: After discussion of [...] persists. COMPLICATION: No. IMPRESSION: CT-guided right 8 Tongan chest tube placement for large pneumothorax. Moderate [...] IMG CT PROCEDURES Final Resul t * CT Guided [...] of prior pneumothorax requiring chest tube. TECHNIQUE: Mess Attendant: Ousmane Luis MD Supervising Physician: Parth Cortez [...] of prior pneumothorax requiring chest tube. TECHNIQUE: Mess Attendant: Ousmane Luis MD Supervising Physician: Parth Cortez [...] procedure well, and was transferred to the [facility] in good condition. Cytopathology, was present [...] 10:04 AM EST) Case Report Cytology Case: [id number] Authorizing Provider: Parth Cortez MD Collected: 03/27/2025 1004 Ordering Location: [facility] Interventional Received: 03/27/2025 1053 Radiology Pathologist: Jess Edwards MD Specimen: Lung, Right Upper Lobe, Core Biopsy with Touch Preparation, LUNG, RIGHT UPPER LOBE CT GUIDED CORE BIOPSY WITH TOUCH PREPS 6:[address] [facility] Addendum PD-L1 IHC 22C3 pharmDx* is [...] test, with disease progression on or after manzanita-containin g chemotherapy. Patients with EGFR or ALK genomic tumor aberrations should have disease progression on FDA-approved therapy for these aberrations prior to receiving Pembrolizumab. PD-L1 IHC serves as a complementary diagnostic in regards to other PD-L1/LW-4-memaskl dtherapies (Nivolumab, Atezolizumab, Durvalumab, etc). Expression level: >Negative for PD-L1 expression (TPS less than 1%) >Positive for PD-L1 expression (TPS 1-49%) >Positive for high PD-L1 expression (TPS greater than or equal to 50%) *PD-L1 IHC 22C3 pharmDx is a FDA-approved forming department end finder diagnostic for pembrolizumab performed on [employer] using formalin-fixed, paraffin imbedded (FFPE) tissue [...] developed by and are performed at the [facility], [address] [place] [address]. All tests reported here, except those addressing HER2 and PD-L1 expression as predictive markers, have not been cleared by or approved by the US Food and Drug Administration (FDA). The laboratory is regulated under CLIA as qualified to perform high-complexity testing. The tests are used for clinical purposes. They should not be regarded as investigational or for research. 6:[address] [facility] Addendum electronically signed by Dano Mcginnis MD on 04/01/2025 at 1816 EST Final Diagnosis A. LUNG, RIGHT UPPER LOBE, CT GUIDED CORE BIOPSY: - POSITIVE FOR MALIGNANCY, ADENOCARCINOMA CONSISTENT WITH LUNG PRIMARY (SEE COMMENT). 6:[address] [facility] at 1657 EST Comment Immunohistochemica l stains were performed which were supportive of the diagnosis (see below for details). PD-L1 is pending, and an addendum will be issued with the results. 5 6:16 PM [facility] Special and Immunohistochemical Stains IHC: A1-1 TTF-1 Positive A1-2 CK7 Positive All controls show appropriate reactivity. All immunohistochemist ry, in situ hybridization, and histochemical tests were developed by and are performed at the [facility], [address] [place] [address]. All tests reported here, except those addressing [...] negativity on decalcified specimens. 5 6:16 PM [facility] Immediate Evaluation Core biopsy performed by: Dr. [...] appears on the report. 5 6:[address] [facility] Clinical History right lower lobe adenocarcinoma post robotic surgery 5 6:[address] [facility] Procedure Type CT 5 6:[address] [facility] Size/Description of Lesion see note 5 6:[address] [facility] Cancer History Yes 5 6:[address] [facility] Comment:right lower lobe ashlee [...] hours of formalin fixation. Cold Time: 30m 6:[address] [facility] Note: A resident was involved in the service. I attest I examined the relevant preparations for the specimens and confirmed the diagnosis or interpretation. 6:[address] [facility] Clinical Information No Dx found. 6:[address] [facility] Fine Needle Aspirate Lung structure / Unknown Non-blood Collection / Unknown 03/27/2025 10:04 AM EST 03/27/2025 10:53 AM EST us Parth Cortez MD LAB CYTOLOGY ORDERABLES Edite d Result - Final [facility] [address] [place] [address] * Prothrombin Time/INR (03/12/2025 8:52 AM EST) Prothrombin Time 13.3 12.0 - 14.3 sec LAB COAGULATION METHOD 03/12/2025 10:[address] [facility] INR 1.0 0.9 - 1.1 LAB COAGULATION METHOD 03/12/2025 10:[address] [facility] Blood Venous blood specimen / Unknown Venipuncture / Unknown 03/12/2025 8:52 AM EST 03/12/2025 8:[address] [facility] - 03/12/2025 10:15 AM EST OPTIMAL INR RANGES FOR PATIENT ON ORAL ANTICOAGULANT THERAPY Prevention of venous thromboembolism INR 2.0 to 3.0 In patients with heart disease: Atrial fibrillation INR 2.0 to 3.0 Valvular heart disease INR 2.0 to 3.0 Tissue heart valves INR 2.0 to 3.0 Mechanical prosthetic valves INR 2.5 to 3.5 Prevention of recurrent ID INR 2.5 to 3.5 us Anjana Pritchett W[employer] BOAT MATE, DNP LAB BLOOD ORDERABLES Fin al Result [facility] [address] [place] [address] * (ABNORMAL) CBC W/O Differential (03/12/2025 8:52 AM EST) WBC Count 10.41(H) 3.70 - 10.30 10*3/uL LAB HEMATOLOGY METHOD 03/12/2025 10:[address] [facility] RBC Count 4.39 3.90 - 5.20 10*6/uL LAB HEMATOLOGY METHOD 03/12/2025 10:[address] [facility] HGB 13.0 11.2 - 15.7 g/dL LAB HEMATOLOGY METHOD 03/12/2025 10:[address] [facility] HCT 39.8 34.0 - 45.0 % LAB HEMATOLOGY METHOD 03/12/2025 10:[address] [facility] Platelet Count 585(H) 155 - 369 10*3/uL LAB HEMATOLOGY METHOD 03/12/2025 10:[address] [facility] MCV 91 79 - 98 fL LAB HEMATOLOGY METHOD 03/12/2025 10:[address] [facility] MCH 29.6 26.0 - 32.0 pg LAB HEMATOLOGY METHOD 03/12/2025 10:[address] [facility] MCHC 32.7 30.7 - 35.5 g/dL LAB HEMATOLOGY METHOD 03/12/2025 10:[address] [facility] RDW 12.6 11.5 - 14.5 % LAB HEMATOLOGY METHOD 03/12/2025 10:[address] [facility] MPV 9.8 8.8 - 12.5 fL LAB HEMATOLOGY METHOD 03/12/2025 10:[address] [facility] nRBC 0.0 <=0.0 per 100 WBCs LAB HEMATOLOGY METHOD 03/12/2025 10:[address] [facility] Blood Venous blood specimen / Unknown Venipuncture / Unknown 03/12/2025 8:52 AM EST 03/12/2025 8:52 AM EST us Anjana Pritchett W[employer] T[employer] BOAT MATE, DNP LAB BLOOD ORDERABLES Fin al Result [facility] [address] [place] [address] * Comprehensive Metabolic Panel, Plasma (03/12/2025 8:52 AM EST) Glucose, Plasma 94 74 - 99 mg/dL 03/12/2025 10:[address] [facility] BUN, Plasma 10 8 - 23 mg/dL 03/12/2025 10:[address] [facility] Creatinine, Plasma 0.80 0.60 - 1.10 mg/dL 03/12/2025 10:[address] [facility] BUN/Creatinine Ratio 13 03/12/2025 10:[address] [facility] Sodium, Plasma 140 136 - 145 mmol/L 03/12/2025 10:[address] [facility] Potassium, Plasma 4.0 3.6 - 4.9 mmol/L 03/12/2025 10:[address] [facility] Chloride, Plasma 102 97 - 107 mmol/L 03/12/2025 10:[address] [facility] CO2, Plasma 26 22 - 29 mmol/L 03/12/2025 10:[address] [facility] Anion Gap 12 6 - 16 mmol/L 03/12/2025 10:[address] [facility] Total Calcium, Plasma 9.4 8.9 - 10.2 mg/dL 03/12/2025 10:[address] [facility] Total Protein 7.1 6.3 - 7.9 g/dL 03/12/2025 10:[address] [facility] Albumin, Plasma 4.5 3.5 - 5.2 g/dL 03/12/2025 10:[address] [facility] AST, Plasma 23 10 - 35 U/L 03/12/2025 10:[address] [facility] ALT, Plasma 12 10 - 35 U/L 03/12/2025 10:[address] [facility] Alkaline Phosphatase, Plasma 96 46 - 142 U/L 03/12/2025 10:[address] [facility] Total Bilirubin, Plasma 0.3 0.2 - 1.1 mg/dL 03/12/2025 10:[address] [facility] eGFRcr 78.9 mL/min/1.7 3m*2 03/12/2025 10:[address] [facility] Comment:Reported eGFRcr in m L/min/1.73m2 is based the CKD-EPI 2020 equation that does not use a race coefficient. Blood Venous blood specimen / Unknown Venipuncture / Unknown 03/12/2025 8:52 AM EST 03/12/2025 8:52 AM EST us Anjana Pritchett WATER TAXI BOAT MATE, DNP LAB BLOOD ORDERABLES Fin al Result [facility] [address] [place] [address] * PET/CT FDG Skull Base To Mid [...] contrast: None. Positioning: Arms raised. PET/CT scanner: [employer] scanner, [id number]. PET/CT acquisition: Hzdtsm-sp-ito-thighs. Standardized uptake value (SUV): Corrected for body weight only. CT: Low-dose, gga-xqocmp-ozgf, without intravenous contrast. TOTAL DLP (Dose Length [...] contrast: None. Positioning: Arms raised. PET/CT scanner: [facility] scanner, [id number]. PET/CT acquisition: Kxbpej-nr-qiy-thighs. Standardized uptake value (SUV): Corrected for body weight only. CT: Low-dose, lrn-yclgxp-xsve, without intravenous contrast. TOTAL DLP (Dose Length [...] MD IMG NM PROCEDURES Final R esult * CT Chest wo IV Contrast (01/08/2025 12:38 PM EDT) Anatomical Region Laterality Modality Chest Computed Tomogra phy Impressions 01/08/2025 1:04 PM EDT Continued increase in the size of the right upper lobe pulmonary nodule, now measuring 13 mm previously 7 mm in March 2024 and 10 mm in September 2024. Tissue sampling should be considered. 4.7 cm thoracic aortic aneurysm. CRITICAL RESULT: No. COMMUNICATION: Per this written report. Drafted by Paul Rueda MD on 01/08/2025 12:59 PM Final report signed by Paul Rueda MD on 01/08/2025 1:04 PM Narrative 01/08/2025 1:04 PM EDT CLINICAL INDICATION: Non-small cell lung cancer (NSCLC), monitor TECHNIQUE: Multiple CT axial images were obtained from thoracic inlet through upper abdomen without administration of IV contrast. Total DLP (Dose-Length Product): 165.74 mGy.cm. Please note: The reported value represents the total of one or more individual components during the CT acquisition on this date and at this time, and as such, the same value may appear in more than one CT report depending on the interpreting/reporting physicians. COMPARISON: October 02, 2024 FINDINGS: Lymph Nodes: No adenopathy is evident. Thyroid: No definite nodule or mass. Cardiovascular: Thoracic aortic aneurysm measuring 4.7 cm. Lungs: Severe upper lobe predominant emphysema spiculated right upper lobe nodule measuring 13 mm (series 4 image 23). There is nodular biapical pleural parenchymal scar. Unchanged groundglass nodule in the inferior right upper lobe (series 4 image 64). Pleura: No pleural effusion or pneumothorax Musculoskeletal and Body Wall: No suspicious osseous abnormality. Procedure Note Paul Rueda MD - 01/08/2025 CLINICAL INDICATION: Non-small cell lung cancer (NSCLC), monitor TECHNIQUE: Multiple CT axial images were obtained from thoracic inlet through upperabdomen without administration of IV contrast. Total DLP (Dose-Length Product): 165.74 mGy.cm. Please note: The reportedvalue represents the total of one or more individual components during theCT acquisition on this date and at this time, and as such, the same valuemay appear in more than one CT report depending on theinterpreting/reporting physicians. COMPARISON: October 02, 2024 FINDINGS: Lymph Nodes: No adenopathy is evident. Thyroid: No definite nodule or mass. Cardiovascular: Thoracic aortic aneurysm measuring 4.7 cm. Lungs: Severe upper lobe predominant emphysema spiculated right upper lobenodule measuring 13 mm (series 4 image 23). There is nodular biapicalpleural parenchymal scar. Unchanged groundglass nodule in the inferiorright upper lobe (series 4 image 64). Pleura: No pleural effusion or pneumothorax Musculoskeletal and Body Wall: No suspicious osseous abnormality. IMPRESSION: Continued increase in the size of the right upper lobe pulmonary nodule,now measuring 13 mm previously 7 mm in March 2024 and 10 mm in September2024. Tissue sampling should be considered. 4.7 cm thoracic aortic aneurysm. CRITICAL RESULT: No. COMMUNICATION: Per this written report. Drafted by Paul Rueda MD on 01/08/2025 12:59 PM Final report signed by Paul Rueda MD on 01/08/2025 1:04 PM us Miriam Wellington MD IMG CT PROCEDURES Final R esult from Last 3 Months Insurance [employer] MEDICARE Advance Directives * Full Code (Latest Code Status on File) Date Activated Date Inactivated Comments 03/27/2025 1:51 PM 03/31/2025 8:49 PM Question Answer Comments I have reviewed the capacity from the link above and, if needed, have updated to appropriate status: Yes * Full Code Date Activated Date Inactivated Comments 08/23/2022 4:34 PM 08/27/2022 7:18 PM Question Answer Comments Patient has decision-making capacity? Yes * Full Code Date Activated Date Inactivated Comments 07/12/2022 1:58 PM 07/13/2022 9:05 PM Question Answer Comments Patient has decision-making capacity? Yes Care Teams Building Custodian Relationship Specialty Start Date End Date Stephen Loyd DO [address] [facility] [address], [place] [address] PCP - General 03/31/25 Ortega Vo MD [address] [place] [facility] [address] [place], [place] [address] Referring Physician 01/08/25 Jaqueline Sewell LPN None None TCM Nurse 04/01/25
--- OUTSIDE RECORDS SUMMARY | 2025-04-04 14:21 | XMS_ITS | Encounter Summary ---
Author Organization [facility] Address [address] [id number] Care Team Providers Care Liquor Clerk Name Role Phone Ortega Vo MD Unavailable [phone] Stephen Loyd DO Primary Care Provider [phone] Reason for Referral * Consultation (Urgent) - Authorized Specialty Diagnoses / Procedures Referred By Contac t Referred To Contact Radiation Oncology Diagnoses Primary adenocarcinoma of lower lobe of right lung Stephen Stern, FOREST TECHNOLOGY PROFESSOR [address] [place] [address] Phone: tel: fax: [facility] Rad[facility] [address] [facility]. [id number] [place] [address] Phone: tel: fax: Referral ID Status Reason Start Date Expiration Date Visits Requested Visits Authorized [id number] Authorized Specialty Services Required 5 09/30/2026 1 1 Encounter Details Date Type Department Care Team (Late st Contact Info) Description 03/31/2025 Orders Only [facility] Head, Neck & Respiratory [address] [place] [address] Sharifa Braden, RN None None Primary adenocarcinoma [...] were you homeless or living in a fpc (including now)? No 03/31/2025 [facility] Utilities Answer Date Recorded In the past [...] drink first t christin in the morning (EYE-CLEANING CUSTODIAN) to steady your nerves or to get [...] * Question Answer Date of Assessment Author Eber Environmental surveillance 03/31/2025 10: 00 AM Jamaal Liu RN * Calculated C-SSRS Risk Score (Lifetime/Recent) Answer Date of Assessment Author No Risk Indicated 03/31/2025 8:00 AM Jamaal Liu RN * Question Answer Date of Assessment Author 1. Wish to be (Past 1 Month) No 025 8:00 AM Jamaal Liu RN 2. Non-Specific Active Suici candy Thoughts (Past 1 Month) No 03/31/2025 8:00 AM Jamaal Liu RN 6. Suicidal Behavior (Lifetime) No 8:00 AM Jamaal Liu RN documented as of this encounter Mental Status * Question Answer Entry Date Author Eber Environmental surveillance 03/31/2025 10: 00 AM Jamaal Liu RN documented in this encounter Plan of Treatment Upcoming Encounters Date Type Department Care Team (Late st Contact Info) Description 04/07/2025 1:30 PM EST Appointment [facility] [id number] [place] [address] Emma Hidalgo MD Scheduled Referrals Name Type Priority Associated Diagnoses Orde r Schedule Ambulatory referral to Radiation Oncology Outpatient Referral Routine Primary adenocarcinoma of lower lobe of right lung Expected: 03/31/2025 (Approximate), Expires: 10/02/2026 documented as of this encounter Visit Diagnoses [...] documented as of this encounter Care Teams Liquor Clerk Relationship Specialty Start Date End Date Stephen Loyd DO [address] [place] [facility] [address] [place] [address] PCP - General 03/31/25 Ortega Vo MD [address] [place], [place] [address] Referring Physician 01/08/25 documented as of this encounter
--- OUTSIDE RECORDS SUMMARY | 2025-04-04 14:21 | XMS_ITS | Encounter Summary ---
Author Organization Healthcare Address [address] [place] [address] Care Team Providers Care Production Support Specialist Name Role Phone Ortega Vo MD Unavailable [phone] Stephen Loyd DO Primary Care Provider [phone] Jaqueline Sewell LPN Unavailable Unavailable Encounter Details Date Type Department Care Team ([facility] st Contact Info) Description 04/04/2025 Telephone [facility] Head[facility] Neck & Respiratory [address] [place] [address] Dereje Knight MD [address] [place] [address] Social History Tobacco Use Types Packs/Day Years [...] any time in the past 12 m [facility], were you homeless or living in a retirement (including now)? No 04/02/2025 [facility] Utilities Answer Date Recorded In the past 12 months has e [employer], gas, oil, or water [employer] threatened to shut off services in your [...] drink first t christin in the morning (EYE-HUMAN FACTORS ADVISOR LEAD) to steady your nerves or to [...] PM EST documented as of this encounter Miscellaneous Notes * Telephone Encounter - Sharifa Braden RN - 04/04/2025 12:19 PM EST RN returned call to patient to let her know that she has been scheduled with Dr. Yoder. Patient would like to cancel and continue general pulmonology at home. Patient would also like further explanation of biopsy results. * Telephone Encounter - Anne Somers - 04/04/2025 9:43 AM EST Patient Phone Message Reason for Call:Patient said that dr Knight was suppose to call her next steps after her biopsy. She is wanting to know if he is still going to call her? Best contact number and optimal time of day to reach caller:[phone] Note: Please do not reply to this message. Follow-up communication and further actions as a result of this message need to be communicated with the patient directly, if the patient is not active onMyChart. If the patient is active on MyChart, they will receive notification of the communication/outcome via [employer]. documented in this encounter Plan of Treatment Upcoming Encounters Date Type Department Care Team (Late st Contact Info) Description 04/07/2025 1:30 PM EST Appointment [facility] [id number] [place] [address] Emma Hdialgo MD documented as of this encounter Visit Diagnoses Not on filedocumented in this encounter Additional Health Concerns Assessment Noted Time A fall risk assessment has been complete d for the patient 03/12/2025 8:18 AM EST A Body Mass Index follow-up plan has been documented for the patient 03/31/2025 6:29 PM EST documented as of this encounter Care Teams Production Support Specialist Relationship Specialty Start Date End Date Stephen Loyd DO [address] [facility] [address] [place] [address] PCP - General 03/31/25 Ortega Vo MD [address] [facility] [address] [place] [address] Referring Physician 01/08/25 Jaqueline Sewell LPN None None TCM Nurse 04/01/25 documented as of this encounter
--- OUTSIDE RECORDS SUMMARY | 2025-04-04 14:21 | XMS_ITS | Encounter Summary ---
Author Organization [facility] Address [address] [place] [address] Care Team Providers Care Explosives Handler Name Role Phone Ortega Vo MD Unavailable [phone] Stephen Loyd DO Primary Care Provider [phone] Jaqueline Sewell LPN Unavailable Unavailable Reason for Visit * Reason Comments TCM Encounter Details Date Type Department Care Team (Late st Contact Info) Description 04/01/2025 Patient Outreach [facility] [address], [address] [place] [address] Jaqueline Sewell, EXECUTIVE LEGAL SECRETARY None None TCM Social History Tobacco Use Types Packs/Day Years [...] any time in the past 12 m [facility], were you homeless or living in a usp (including now)? No 04/02/2025 [facility] Utilities Answer Date Recorded In the past 12 months has e [employer], [employer], oil, or water [employer] threatened to shut off services in your [...] drink first t christin in the morning (EYE-TEACHING ASSISTANT) to steady your nerves or to get [...] as of this encounter Miscellaneous Notes * Progress Notes - Jaqueline Sewell LPN - 04/01/2025 10:18 AM EST Admit Date: 03/27/2025 Discharge Date: 03/31/2025 Hospital Service: [facility] Discharge Diagnosis: Pneumothorax 04/01/2025 TCM call # 1 Patient Reached: No Outcome: Called patient for TCM nurse call, unable to contact, voicemail left with call back numberprovided. Action: N/A Medication changes: No medication changes were made JACQUELINE appointment: Needs an appt scheduled with PCP Items to address at JACQUELINE: N/A documented in this encounter Plan of Treatment Upcoming Encounters Date Type Department Care Team (Late st Contact Info) Description 04/07/2025 1:30 PM EST Appointment [facility] [address] [facility]. [id number] [place] [address] Emma Hidalgo MD documented as of this encounter Visit Diagnoses Not on filedocumented in this encounter Additional Health Concerns Assessment Noted Time A fall risk assessment has been complete d for the patient 03/12/2025 8:18 AM EST A Body Mass Index follow-up plan has been documented for the patient 03/31/2025 6:29 PM EST documented as of this encounter Care Teams Explosives Handler Relationship Specialty Start Date End Date Stephen Loyd DO [address] [place] [address] [place] [address] PCP - General 03/31/25 Ortega Vo MD [facility] [place] [facility] [address] [place] [address] Referring Physician 01/08/25 Jaqueline Sewell LPN None None TCM Nurse 04/01/25 documented as of this encounter
--- OUTSIDE RECORDS SUMMARY | 2025-04-04 14:21 | XMS_ITS | Encounter Summary ---
Author Organization [facility] Address [address] [place] [address] Care Team Providers Care Tire Regrooving Machine Operator Name Role Phone Ortega Roach MD Primary Care Provider [phone] Ortega Vo MD Unavailable [phone] Encounter Details Date Type Department Care Team (Latest Contact Info) Description 03/30/2025 Travel Social History Tobacco Use Types Packs/Day [...] any time in the past 12 m [facility], were you homeless or living in a [place] [facility] [place] (including now)? No 03/31/2025 [facility] Utilities Answer Date Recorded In the past [...] drink first t christin in the morning (EYE-SENIOR TECHNICAL TRAINER) to steady your nerves or to get [...] Date of Assessment Author Precautions Environmental surveillance 03/30/2025 10: 00 PM EST Jarred Nunez RN * Calculated C-SSRS Risk Score (Lifetime/Recent) Answer Date of Assessment Author No Risk Indicated 03/30/2025 8:00 PM EST Jarred Cadet RN * Question Answer Date of Assessment Author 1. Wish to be (Past 1 Month) No 03/30/2025 8:00 PM EST Al Nunez RN 2. Non-Specific Active Suici candy Thoughts (Past 1 Month) No 03/30/2025 8:00 PM EST Moshe Nunez RN 6. Suicidal Behavior (Lifetime) No 8:00 PM EST Jarred Nunez RN documented as of this encounter Mental Status * Question Answer Entry Date Author Precautions Environmental surveillance 03/30/2025 10: 00 PM EST Jarred Nunez RN documented in this encounter Plan of Treatment Upcoming Encounters Date Type Department Care Team (Late st Contact Info) Description 04/07/2025 1:30 PM EST Appointment [facility] [id number] [place] [address] Emma Hidalgo MD documented as of this encounter Visit Diagnoses Not on filedocumented in this encounter Additional Health Concerns Assessment Noted Time A fall risk assessment has been complete d for the patient 03/12/2025 8:18 AM EST A Body Mass Index follow-up plan has been documented for the patient 03/31/2025 6:29 PM EST documented as of this encounter Care Teams Tire Regrooving Machine Operator Relationship Specialty Start Date End Date Ortega Roach MD [address] [place] [address] PCP - General 06/09/22 03/30/25 Ortega Vo MD [address] [place], [place] [address], [place] [address] Referring Physician 01/08/25 documented as of this encounter
--- OUTSIDE RECORDS SUMMARY | 2025-04-04 14:21 | XMS_ITS | Encounter Summary ---
Author Organization [place] [facility] Address [address] [place] [address] Care Team Providers Care Aquatics Specialist Name Role Phone Ortega Vo MD Unavailable [phone] Stephen Loyd DO Primary Care Provider [phone] Encounter Details Date Type Department Care Team (Late st Contact Info) Description 03/31/2025 Orders Only Pav [facility] Head, Neck & Respiratory [address] [facility], [address] [place] [address] Sharifa Braden, RN None None Social History Tobacco Use Types Packs/Day Years [...] any time in the past 12 m [facility], were you homeless or living in a retirement (including now)? No 03/31/2025 [facility] Utilities Answer Date Recorded In the [...] drink first t christin in the morning (EYE-CATALYTIC CONVERTER OPERATOR HELPER) to steady your nerves or to get [...] of Assessment Author Precautions Environmental surveillance 03/31/2025 12: 00 PM EST Jamaal Stahl RN * Calculated [...] Entry Date Author Precautions Environmental surveillance 03/31/2025 12: 00 PM EST Jamaal Stahl RN documented in this encounter Plan of Treatment Upcoming Encounters Date Type Department Care Team (Late st Contact Info) Description 04/07/2025 1:30 PM EST Appointment [facility] [id number] [place] [address] Emma Hidalgo MD documented as of this encounter Visit Diagnoses Not on filedocumented in this encounter Additional Health Concerns Assessment Noted Time A fall risk assessment has been complete d for the patient 03/12/2025 8:18 AM EST A Body Mass Index follow-up plan has been documented for the patient 03/31/2025 6:29 PM EST documented as of this encounter Care Teams Aquatics Specialist Relationship Specialty Start Date End Date Stephen Loyd DO [address] [place] [address] [place] [address] PCP - General 03/31/25 Ortega Vo MD 1210 [facility] [address] [place] [address] Referring Physician 01/08/25 documented as of this encounter
--- OUTSIDE RECORDS SUMMARY | 2025-04-04 14:21 | XMS_ITS | Encounter Summary ---
Author Organization [place] [facility] Address [address] [place] [address] Care Team Providers Care Shank Taper Name Role Phone Ortega Vo MD Unavailable [phone] Stephen Loyd DO Primary Care Provider [phone] Jaqueline Sewell LPN Unavailable Unavailable Encounter Details Date Type Department Care Team (Late st Contact Info) Description 04/02/2025 Patient Outreach POP[facility]ATION [facility] [address] [facility], [address] [place] [address] Jaqueline Sewell LPN None None Social History Tobacco Use Types [...] any time in the past 12 m [facility], were you homeless or living in a long-term (including now)? No 04/02/2025 [facility] Utilities Answer Date Recorded In the past 12 months has th e [employer], gas, oil, or water [employer] threatened to shut off services in your [...] drink first t christin in the morning (EYE-DISTRIBUTOR ADVERTISING MATERIAL) to steady your nerves or to get [...] Progress Notes - Jaqueline Sewell LPN - 04/02/2025 1:06 PM EST Admit Date: 03/27/2025 Discharge Date: 03/31/2025 Hospital Service: [facility] Discharge Diagnosis: Pneumothorax 04/02/2025 TCM call # 2 Patient Reached: Yes Outcome: Spoke with patient for TCM nurse call, states that she is doing much better since discharge. Patient denies SOA, or chest pains at this time. Patient endorses that she is eating and drinkingwell and using the restroom normally. Patient reviewed medications with TCM nurse, confirms she is complaint with all home medications. Patient denies side effects at this time. SDOH updated, patientdenies needs at this time. Patient states she just finished talking with her PCP office, and made afollow up appointment for 04/04/2025. No other questions, concerns, or complaints voiced. Action: N/A Medication changes: No medication changes were made JACQUELINE appointment: Scheduled with PCP on 04/04/2025 Items to address at JACQUELINE: N/A documented in this encounter Plan of Treatment Upcoming Encounters Date Type Department Care Team (Late st Contact Info) Description 04/07/2025 1:30 PM EST Appointment [facility] Radiation [address] [facility]. [id number] [place] [address] Emma Hidalgo MD documented as of this encounter Visit Diagnoses Not on filedocumented in this encounter Additional Health Concerns Assessment Noted Time A fall risk assessment has been complete d for the patient 03/12/2025 8:18 AM EST A Body Mass Index follow-up plan has been documented for the patient 03/31/2025 6:29 PM EST documented as of this encounter Care Teams Shank Taper Relationship Specialty Start Date End Date Stephen Loyd DO 1210 [facility] [address] [place] [address] PCP - General 03/31/25 Ortega oV MD 1210 [facility] [address] [place] [address] Referring Physician 01/08/25 Jaqueline Sewell LPN None None TCM Nurse 04/01/25 documented as of this encounter
--- OUTSIDE RECORDS SUMMARY | 2025-04-04 14:21 | XMS_ITS | Encounter Summary ---
Author Organization [facility] Address [address] [place] [address] Care Team Providers Care Gear Hobber Set Up Operator Name Role Phone Ortega Vo MD Unavailable [phone] Stephen Loyd DO Primary Care Provider [phone] Encounter Details Date Type Department Care Team (Latest Contact Info) Description 03/31/2025 Travel Social History Tobacco Use Types Packs/Day [...] any time in the past 12 m [facility], were you homeless or living in a chcf (including now)? No 03/31/2025 [facility] Utilities Answer Date Recorded In the [...] drink first t christin in the morning (EYE-GLASS BULB SILVERER) to steady your nerves or to get [...] 6:0 0 PM EST Jamaal Stahl RN documented in this encounter Plan of Treatment Upcoming Encounters Date Type Department Care Team (Late st Contact Info) Description 04/07/2025 1:30 PM EST Appointment [facility] Radiation [address] [facility]. [id number] [place] [address] Emma Hidalgo MD documented as of this encounter Visit Diagnoses Not on filedocumented in this encounter Additional Health Concerns Assessment Noted Time A fall risk assessment has been complete d for the patient 03/12/2025 8:18 AM EST A Body Mass Index follow-up plan has been documented for the patient 03/31/2025 6:29 PM EST documented as of this encounter Care Teams Gear Hobber Set Up Operator Relationship Specialty Start Date End Date Stephen Loyd DO [address] [place] [facility] [address] [place] [address] PCP - General 03/31/25 Ortega Vo MD [address] [place] [address] [place] [address] Referring Physician 9/24/25 documented as of this encounter
--- OUTSIDE RECORDS SUMMARY | 2025-04-04 14:21 | XMS_ITS ---
Author Organization [facility] Address [address] [place] [address] Care Team Providers Care Bag Machine Operator Name Role Phone Ortega Vo MD Unavailable [phone] Stephen Loyd DO Primary Care Provider [phone] Jaqueline Sewell PLASTIC WELDER Unavailable Unavailable Active Problems Problem Noted Date Diagnosed Date [...] (08/24/2022): Hypocalcemia Monitor - Replete per protocol Current Treatment and Therapy Plans No current plan information found. Past Treatment and Therapy Plans No past plan information found. Lifetime Dose Tracking * Chemical Lifetime Dose Automatic Entry Manual Entr y Fluoro Time 8.065 minutes 8.065 minutes 0 minutes Air Kerma 113.02 mGy 113.02 mGy 0 mGy CTDIvol 308.1 mGy 192 mGy 116.1 mGy Radiation (DLP) 1,734 mGy-cm 682 mGy-cm 1,052 mGy-cm Resolved Problems Problem Noted Date Diagnosed Date Resolved Date Pneumothorax after biopsy 07/12/2022 Pneumothorax of right lung after biopsy 07/12/2022 08/24/2022 Lactic acidosis 08/25/2022 Overview (08/24/2022): Trend labs, improving Volume resuscitation as needed Postoperative pain Overview (08/24/2022): Multimodal pain control
--- OUTSIDE RECORDS SUMMARY | 2025-04-04 14:21 | XMS_ITS | Encounter Summary ---
Author Organization [facility] Address [address] [place] [address] Care Team Providers Care Hood Fitter Name Role Phone Ortega Roach MD Primary Care Provider [phone] Ortega Vo MD Unavailable [phone] Encounter Details Date Type Department Care Team (Latest Contact Info) Description 03/12/2025 Travel Social History Tobacco Use Types Packs/Day [...] drink first t christin in the morning (EYE-LAB TESTER) to steady your nerves or to get [...] Appointment [facility] [id number] [place] [address] Emma Hidalgo MD documented as of this encounter Visit Diagnoses Not on filedocumented in this encounter Additional Health Concerns Assessment Noted Time A fall risk assessment has been complete d for the patient 03/12/2025 8:18 AM EST A Body Mass Index follow-up plan has been documented for the patient 03/12/2025 8:44 AM EST documented as of this encounter Care Teams Hood Fitter Relationship Specialty Start Date End Date Ortega Roach MD [address] [place] [address] PCP - General 06/09/22 03/30/25 Ortega Vo MD [address] [facility] [place] [address] [place] [address] Referring Physician 01/08/25 documented as of this encounter
--- OUTSIDE RECORDS SUMMARY | 2025-04-04 14:21 | XMS_ITS | Encounter Summary ---
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 Wish to be (Past 1 Month) No 025 7:47 PM Susan Stevenson RN 2. Non-Specific Active Suici candy Thoughts (Past 1 Month) No 03/27/2025 7:47 PM EST Susan Ellison RN 6. Suicidal Behavior (Lifetime) No 7:47 PM EST Susan Ellison RN documented as of this encounter Mental Status * Question Answer Entry Date Author Precautions Fall risk;Environmental surveillance 03/17 7:47 PM EST Susan Ellison RN * Question Answer Entry Date Author Scale Used Carlos 03/27/2025 3:48 PM EST Klarissa Mccartney RN documented in this encounter Plan of Treatment Upcoming Encounters Date Type Department Care Team (Late st Contact Info) Description 04/07/2025 1:30 PM EST Appointment [facility] [id number] [place] [address] Emma Hidalgo MD documented as of this encounter Visit Diagnoses Not on filedocumented in this encounter Additional Health Concerns Assessment Noted Time A fall risk assessment has been complete d for the patient 03/12/2025 8:18 AM EST A Body Mass Index follow-up plan has been documented for the patient 03/31/2025 6:29 PM EST documented as of this encounter Care Teams Radiation Oncology Manager Relationship Specialty Start Date End Date Ortega Roach MD [address] [facility] [place] [address] PCP - General 06/09/22 03/30/25 Ortega Vo MD [address] [place] [address] Referring Physician 01/08/25 documented as of this encounter
--- NOTE | 2025-04-04 14:22 | XR_ITS ---
FINAL REPORT TECHNIQUE: Single view chest CLINICAL HISTORY: Recent pneumothorax pt states recent right side pneumo had chest tube placed FINDINGS: A single view of the chest was obtained. The heart and mediastinum are within normal limits. There are emphysematous changes. The lungs are clear. There is no pneumothorax. IMPRESSION: No acute cardiopulmonary process. Reviewed, Interpreted and Dictated by Mary Yang MD Transcribed by Jami Cho Authenticated and [facility]
== END 2025-04-04 23:59 | disposition home or self-care (01) ==
LOC: RAD 14:18
PROVIDERS: PCP Internal Medicine; Visit Provider Internal Medicine
DX: J93.9 Pneumothorax, unspecified (principal); J43.9 Emphysema, unspecified
CPT/HCPCS: 71045